=== PATIENT | female | born 1945 | race Caucasian/White ===

== ENCOUNTER 2017-03-23 03:29 | Emergency (ER) | payer MEDICARE, MEDICAID ==
[2017-03-23 03:51] VITALS: BP 100/34; PULSE 86; RESP 24; TEMP 99.5; O2SAT 100; BMI 25.1
[2017-03-23] MEDS ORDERED: Albuterol-Ipratrop 3 mg / 0.5 (3 ml) UD IH STA (03:51)
--- NOTE | 2017-03-23 03:59 | ED PDOC ---
Arrival/HPI - General Chief Complaint: Cough, Cold, Congestion Time Seen by Provider: 03/23/17 03:36 Historian: Patient - History of Present Illness Narrative History of Present Illness (Text): 03/23/17 03:56 Raysa Belle is a 71 year old female, with a history of hypertension and recently diagnosed bronchitis, presents to emergency department complaining of 1 week duration of shortness of breath, cough and wheezing. Patient states that symptoms did not improve despite taking medication prescribed to her during previous visit for similar symptoms. Deneis fever, chills, headache, dizziness, chest pain, nausea, vomiting, diarrhea, or any other complaints at this time. Time/Duration: 1 week Symptom Onset: Gradual Symptom Course: Unchanged Severity Level: Mild Activities at Onset: Light Context: Home Past Medical History - Infectious Disease Hx of Infectious Diseases: None - Tetanus Immunization Tetanus Immunization: Unknown - Cardiac Hx Pacemaker: No - Pulmonary Hx Asthma: Yes - Neurological Hx Paralysis: No - HEENT Hx Difficulty Chewing: No - Renal Hx Renal Disorder: No - Endocrine/Metabolic Hx Diabetes Mellitus Type 2: Yes Other/Comment: BORDERLINE DM - Hematological/Oncological Hx Blood Transfusions: No Hx Blood Transfusion Reaction: No - Integumentary Hx Dermatological Disorder: No - Musculoskeletal/Rheumatological Hx Musculoskeletal Disorders: Yes (OSTEOARTHRITIS) - Gastrointestinal Hx Diverticulitis: Yes - Genitourinary/Gynecological Hx Genitourinary Disorders: No - Psychiatric Hx Emotional Abuse: No Hx Physical Abuse: No Hx Substance Use: No - Past Surgical History Past Surgical History: Non-Contributing - Surgical History Hx Amputation: No Hx Appendectomy: Yes Hx Cholecystectomy: Yes Hx Hysterectomy: Yes Other/Comment: right hand surgery - Anesthesia Hx Anesthesia Reactions: No Hx Malignant Hyperthermia: No - Suicidal Assessment Feels Threatened In Home Enviroment: No Family/Social History - Physician Review Nursing Documentation Reviewed: Yes Family/Social History: No Known Family HX Smoking Status: Never Smoked Hx Alcohol Use: No Hx Substance Use: No Allergies/Home Meds Allergies/Adverse Reactions: Allergies alendronate sodium [From Fosamax] Allergy (Intermediate, Verified 06/05/16 11:21 ) NAUSEA/VOMTING ciprofloxacin Allergy (Intermediate, Verified 06/05/16 11:21) NAUSEA/VOMITING codeine Allergy (Intermediate, Verified 06/05/16 11:21) DIZZINESS lisinopril Allergy (Unknown, Verified 06/05/16 11:21) UNKNOWN Home Medications: Home Meds Medication Instructions Recorded Confirmed Atorvastatin Calcium [Lipitor] 40 mg PO QPM 03/28/12 01/25/17 Montelukast [Singulair] 10 mg PO QPM 03/28/12 01/25/17 Donepezil [Aricept] 5 mg PO DAILY 09/14/15 01/25/17 Calcium Carb & Citrate/Vit D3 1 each PO DAILY 06/05/16 01/25/17 [Calcium + D3 ER Tablet] Dexlansoprazole [Dexilant] 60 mg PO DAILY 06/05/16 01/25/17 Aspirin [Aspirin Chewable] 81 mg PO MWF 01/18/17 01/25/17 Atenolol [Tenormin] 25 mg PO DAILY 01/18/17 01/25/17 Polyethylene Glycol 3350 [Miralax] 17 gm PO DAILY 01/18/17 01/25/17 amLODIPine [Norvasc] 5 mg PO DAILY 01/18/17 01/25/17 Review of Systems - Physician Review All systems were reviewed & negative as marked: Yes - Review of Systems Constitutional: Normal. absent: Fatigue, Fevers Respiratory: SOB. absent: Sputum Cardiovascular: Normal. absent: Chest Pain Gastrointestinal: Normal. absent: Abdominal Pain, Diarrhea, Nausea, Vomiting Psychiatric: Normal Physical Exam Vital Signs Reviewed: Yes Vital Signs Temp Pulse Resp BP Pulse Ox 03/23/17 03:49 24 100 03/23/17 03:48 99.5 F 86 24 100/34 L 100 Temperature: Afebrile Blood Pressure: Normal Pulse: Regular Respiratory Rate: Normal Appearance: Positive for: Well-Appearing, Non-Toxic, Comfortable Pain Distress: None Mental Status: Positive for: Alert and Oriented X 3 - Systems Exam Head: Present: Atraumatic, Normocephalic Pupils: Present: PERRL Extroacular Muscles: Present: EOMI Conjunctiva: Present: Normal Mouth: Present: Moist Mucous Membranes Neck: Present: Normal Range of Motion Respiratory/Chest: Present: Wheezes (diffuse wheezing). No: Respiratory Distress, Accessory Muscle Use Cardiovascular: Present: Regular Rate and Rhythm, Normal S1, S2. No: Murmurs Abdomen: Present: Normal Bowel Sounds. No: Tenderness, Distention, Peritoneal Signs Back: Present: Normal Inspection Upper Extremity: Present: Normal Inspection. No: Cyanosis, Edema Lower Extremity: Present: Normal Inspection. No: Edema Neurological: Present: GCS=15, CN II-XII Intact, Speech Normal Skin: Present: Warm, Dry, Normal Color. No: Rashes Psychiatric: Present: Alert, Oriented x 3, Normal Insight, Normal Concentration Medical Decision Making ED Course and Treatment: 03/23/17 04:00 Impression: A 71 year old female who presents to the emergency department complaining of 1 wk duration of shortness of breath, cough and wheezing. Differential Diagnosis include but are not limited to: bronchitis Plan: -- EKG -- Labs, cardiac enzymes -- Chest X-ray -- Duoneb -- Rapid flu -- Reassess and disposition Progress Notes 03/23/17 04:01 - Lab Interpretations Lab Results: 03/23/17 03:55 03/23/17 03:55 Lab Results 03/23/17 03:55: NT-Pro-B Natriuret Pep 482 H 03/23/17 03:55: WBC 6.9, RBC 4.57, Hgb 12.9, Hct 37.9, MCV 82.9, MCH 28.2, MCHC 34.0, RDW 14.5, Plt Count 163, MPV 10.7 03/23/17 03:55: Sodium 140, Potassium 3.8, Chloride 104, Carbon Dioxide 24, Anion Gap 16, BUN 21, Creatinine 0.8, Est GFR ( Amer) > 60, Est GFR (Non- Af Amer) > 60, Random Glucose 101, Calcium 8.8, Total Bilirubin 0.7, AST 32, ALT 33, Alkaline Phosphatase 72, Lactate Dehydrogenase 709 H, Total Creatine Kinase 115, Troponin I < 0.01, Total Protein 7.1, Albumin 4.0, Globulin 3.1, Albumin/Globulin Ratio 1.3 03/23/17 03:55: PT 10.2, INR 0.94, APTT 26.6 - RAD Interpretation Radiology Orders: 03/23/17 03:50 CHEST PORTABLE [RAD] Stat - Medication Orders Current Medication Orders: Discontinued Medications Albuterol/Ipratropium (Duoneb 3 Mg/0.5 Mg (3 Ml) Ud) 3 ml IH ONCE STA Stop: 03/23/17 03:52 Last Admin: 03/23/17 03:52 Dose: 3 ml - Scribe Statement The provider has reviewed the documentation as recorded by the Vidhyaibe Fam Stone Provider Attestation: All medical record entries made by the Vidhyaibe were at my direction and personally dictated by me. I have reviewed the chart and agree that the record accurately reflects my personal performance of the history, physical exam, medical decision making, and the department course for this patient. I have also personally directed, reviewed, and agree with the discharge instructions and disposition. Disposition/Present on Arrival - Present on Arrival Any Indicators Present on Arrival: No History of DVT/PE: No History of Uncontrolled Diabetes: No Urinary Catheter: No History of Decub. Ulcer: No History Surgical Site Infection Following: None - Disposition Have Diagnosis and Disposition been Completed?: Yes Diagnosis: Bronchitis Disposition: HOME/ ROUTINE Disposition Time: 07:00 Patient Plan: Discharge Condition: STABLE Additional Instructions: Pt. with paper d/c given prior to [employer] system re boot.RX for Zithromax/Benadryl given/follow up with PMD.
[2017-03-23 06:22] LABS: ALB/GLOB RATIO 1.3 (1.1-1.8); ALKALINE PHOSPHATASE 72 U/L (38-133); ALT/SGPT 33 U/L (7-56); AST/SGOT 32 U/L (15-39); BILIRUBIN,TOTAL 0.7 mg/dL (0.2-1.3); BLOOD UREA NITROGEN 21 mg/dL (7-21); CALCIUM 8.8 mg/dL (8.4-10.5); CARBON DIOXIDE 24 mmol/L (21-33); CHLORIDE 104 mmol/L (98-107); GFR AFRICAN-AMERICAN > 60; GLUCOSE,RANDOM 101 mg/dL (70-110); POTASSIUM 3.8 mmol/L (3.6-5.0); SODIUM 140 mmol/L (132-148); TOTAL PROTEIN 7.1 g/dL (5.8-8.3)
[2017-03-23 06:26] LABS: INR 0.94 (0.93-1.08); PARTIAL THROMBOPLASTIN TIME 26.6 Seconds (23.7-30.8)
[2017-03-23 06:52] LABS: TROPONIN I < 0.01 ng/mL
[2017-03-23 07:38] LABS: HEMATOCRIT 37.9 % (36.0-48.0); MEAN CELL VOLUME 82.9 fL (80.0-105.0); MEAN CORPUSCULAR HEMOGLOBIN 28.2 pg (25.0-35.0); MEAN PLATELET VOLUME 10.7 fl (7.0-11.0); RED CELL DISTRIBUTION WIDTH 14.5 % (11.5-14.5); WHITE BLOOD COUNT 6.9 10^3/ul (4.5-11.0)
--- NOTE | 2017-03-23 11:16 | CARD ---
APPROVED REPORT EKG Measurement Heart [id number] <Conclusion> Normal sinus rhythm Low voltage QRS Borderline ECG
--- NOTE | 2017-03-31 23:41 | RAD ---
HISTORY: Shortness of breath COMPARISON: 06/30/2016 FINDINGS: LUNGS: No active pulmonary disease. PLEURA: No significant pleural effusion identified, no pneumothorax apparent. CARDIOVASCULAR: Normal. OSSEOUS STRUCTURES: No significant abnormalities. VISUALIZED UPPER ABDOMEN: Normal. OTHER FINDINGS: None. IMPRESSION: No active disease.
== END 2017-03-23 08:16 | disposition home or self-care (01) ==
LOC: ED 03:29
DX: J40 Bronchitis, not specified as acute or chronic (principal)

== ENCOUNTER 2017-08-03 07:25 | Observation (INO) | payer OTHER, MEDICAID ==
[2017-08-03] MEDS ORDERED: Albuterol-Ipratrop 3 mg / 0.5 (3 ml) UD IH STA (08:25)
[2017-08-03] MEDS ORDERED: Sodium Chloride 0.9% 1,000 ML IV SCH (08:30)
--- NOTE | 2017-08-03 08:32 | ED PDOC ---
Arrival/HPI - General Historian: Patient EM Caveat: Acuity of Condition - History of Present Illness Time/Duration: < week Symptom Onset: Gradual Symptom Course: Unchanged Activities at Onset: Rest Context: Sitting <ROYAL DAWN - Last Filed: 08/03/17 13:44> <Justo Villagomez - Last Filed: 08/03/17 15:40> - General Chief Complaint: GI Problem Time Seen by Provider: 08/03/17 07:27 - History of Present Illness Narrative History of Present Illness (Text): Patient is a 71 year old female with a past medical history of asthma, HTN, dyslipidemia, Lymphoma who presents with complaints of vomiting, nausea, nasal congestion, itchy eyes, and shortness of breath. Patient states that for the past week she went to visit her son and grandchildren. Patient states grandchildren were sick with vomiting and diarrhea. After visiting them, her symptoms started Wednesday08/30/17; stating she has had five episodes of vomiting since, however none today. Patient denies diarrhea, chest pain, fevers , chills. While in ED patient later complains of a shortness of breath since she stopped taking her medications. 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 Medications: atorvastatin 40 mg, montelukast 10 mg, atenolol 25 mg, amilodipine 25 mg, donepezil 5mg; all medications qD. Aspirin-MWF 1 tab. 08/03/17 08:27 (ROYAL DAWN) Past Medical History - Provider Review Nursing Documentation Reviewed: Yes - Infectious Disease Hx of Infectious Diseases: None - Tetanus Immunization Tetanus Immunization: Unknown - Cardiac Hx Cardiac Disorders: Yes Hx Hypertension: Yes Hx Pacemaker: No - Pulmonary Hx Respiratory Disorders: Yes Hx Asthma: Yes - Neurological Hx Neurological Disorder: No Hx Paralysis: No - HEENT Hx HEENT Disorder: No Hx Difficulty Chewing: No - Renal Hx Renal Disorder: No - Endocrine/Metabolic Hx Endocrine Disorders: Yes Hx Diabetes Mellitus Type 2: Yes Other/Comment: BORDERLINE DM - Hematological/Oncological Hx Blood Disorders: Yes Hx Blood Transfusions: No Hx Blood Transfusion Reaction: No Hx Cancer: Yes Hx Lymphoma: Yes - Integumentary Hx Dermatological Disorder: No - Musculoskeletal/Rheumatological Hx Musculoskeletal Disorders: Yes (OSTEOARTHRITIS) - Gastrointestinal Hx Gastrointestinal Disorders: Yes Hx Diverticulitis: Yes - Genitourinary/Gynecological Hx Genitourinary Disorders: No - Psychiatric Hx Psychophysiologic Disorder: No Hx Emotional Abuse: No Hx Physical Abuse: No Hx Substance Use: No - Past Surgical History Past Surgical History: Non-Contributing - Surgical History Hx Amputation: No Hx Appendectomy: Yes Hx Cataract Extraction: Yes Hx Cholecystectomy: Yes Hx Hysterectomy: Yes Other/Comment: right hand surgery - Anesthesia Hx Anesthesia Reactions: No Hx Malignant Hyperthermia: No - Suicidal Assessment Feels Threatened In Home Enviroment: No <ROYAL DAWN - Last Filed: 08/03/17 13:44> Family/Social History - Physician Review Nursing Documentation Reviewed: Yes Family/Social History: Other Smoking Status: Never Smoked Hx Alcohol Use: No Hx Substance Use: No <ROYAL DAWN - Last Filed: 08/03/17 13:44> <Justo Villagomez - Last Filed: 08/03/17 15:40> Narrative Family History (Free Text): non contributory for chronic disease Acute disease- grandchildren had similar presentation beforehand 08/03/17 08:33 (ROYAL DAWN) Allergies/Home Meds <ROYAL DAWN - Last Filed: 08/03/17 13:44> <Justo Villagomez - Last Filed: 08/03/17 15:40> Allergies/Adverse Reactions: Allergies alendronate sodium [From Fosamax] Allergy (Intermediate, Verified 08/03/17 07:48 ) NAUSEA/VOMTING ciprofloxacin Allergy (Intermediate, Verified 08/03/17 07:48) NAUSEA/VOMITING codeine Allergy (Intermediate, Verified 08/03/17 07:48) DIZZINESS lisinopril Allergy (Unknown, Verified 08/03/17 07:48) UNKNOWN clarithromycin Allergy (Verified 08/03/17 07:48) unknown sertraline Allergy (Verified 08/03/17 07:48) unknown Home Medications: Home Meds Medication Instructions Recorded Confirmed Atorvastatin Calcium [Lipitor] 40 mg PO QPM 03/28/12 08/03/17 Montelukast [Singulair] 10 mg PO QPM 03/28/12 08/03/17 Donepezil [Aricept] 5 mg PO DAILY 09/14/15 08/03/17 Calcium Carb, Citrate/Vit D3 1 each PO DAILY 06/05/16 08/03/17 [Calcium + D3 ER Tablet] Aspirin [Aspirin Chewable] 81 mg PO MWF 01/18/17 08/03/17 Atenolol [Tenormin] 25 mg PO DAILY 01/18/17 08/03/17 Polyethylene Glycol 3350 [Miralax] 17 gm PO BID 01/18/17 08/03/17 amLODIPine [Norvasc] 5 mg PO DAILY 01/18/17 08/03/17 Albuterol HFA [Ventolin HFA 90 1 inh INH BID PRN 08/03/17 08/03/17 mcg/actuation (8 g)] Budesonide/Formoterol Fumarate 1 inh INH BID 08/03/17 08/03/17 [Symbicort 80-4.5 Mcg Inhaler] Fluticasone Propionate [Flonase] 1 spray IN BID 08/03/17 08/03/17 Lactobacillus Acidophilus 1 tab PO DAILY 08/03/17 08/03/17 [Probiotic Acidophilus] Review of Systems - Physician Review All systems were reviewed & negative as marked: Yes - Review of Systems Systems not reviewed;Unavailable: Acuity of Condition Constitutional: absent: Fevers, Night Sweats Eyes: Other (itchiness around eyes, right eye in particular). absent: Vision Changes, Photophobia Respiratory: SOB, Cough Cardiovascular: absent: Chest Pain, Palpitations Gastrointestinal: Nausea, Vomiting, Appetite Changes. absent: Diarrhea Musculoskeletal: absent: Arthralgias, Joint Swelling Skin: absent: Skin Lesions, Laceration Neurological: Headache. absent: Focal Weakness <ROYAL DAWN - Last Filed: 08/03/17 13:44> Physical Exam Vital Signs Reviewed: Yes Temperature: Afebrile Blood Pressure: Hypertensive Pulse: Regular Appearance: Positive for: Uncomfortable Pain Distress: Mild Mental Status: Positive for: Alert and Oriented X 3 - Systems Exam Head: Present: Atraumatic, Normocephalic Extroacular Muscles: Present: EOMI Conjunctiva: Present: Normal Mouth: Present: Moist Mucous Membranes, Normal Lips Respiratory/Chest: Present: Clear to Auscultation, Respiratory Distress Cardiovascular: Present: Regular Rate and Rhythm, Normal S1, S2 Abdomen: Present: Tenderness, Normal Bowel Sounds. No: Distention, Peritoneal Signs, Rebound, Guarding Neurological: Present: CN II-XII Intact Skin: Present: Warm, Normal Color Psychiatric: Present: Alert, Oriented x 3 <ROYAL DAWN - Last Filed: 08/03/17 13:44> Medical Decision Making <ROYAL DAWN - Last Filed: 08/03/17 13:44> - EKG Interpretation Interpreted by ED Physician: Yes Type: 12 lead EKG <DahliaJusto - Last Filed: 08/03/17 15:40> ED Course and Treatment: Assessment Patient is a 71 year old female with complaints of cough, vomiting, shortness of breath, swollen and pruritic eyes B/L, and nasal congestion Plan - EKG - CXR - UA - CBC, CMP - Duoneb - Zofran - IVF - CT reveals sinusitus; tobramycin sln and rocephin - BNP elevated; will admit to telemetry for further observation- Discussed with Dr. Wills, who is in agreement with the plan 08/03/17 08:37 (ROYAL DAWN) In agreement with resident note, which includes further HPI details. Patient was seen and evaluated with resident, came up with plan and treatment together. Patient examined by me with director of food and nutrition services present. She reports to me some abdominal cramping and nausea several days ago which improved. On current exam she appears well hydrated and is tolerating po, with no severe abdominal pain noted on exam. She has periorbital right eye erythema with clear conjunctival dishcharge. Exam and CT does NOT reveal orbital cellulitis, no pain with eye movements, and visual acuity and gray intact. She additionally complains of chest pain and shortness of breath with exertion over the past three days. I discussed with Dr. Earnest Wills, her PMD, no recent cardiac eval. Will admit to telemetry observation to hospitalist for monitoring, patient agreeable to plan. 08/03/17 15:37 (Justo Villagomez) - Lab Interpretations Lab Results: 08/03/17 08:30 08/03/17 08:30 Lab Results 08/03/17 08:30: Sodium 142, Potassium 3.3 L, Chloride 105, Carbon Dioxide 25, Anion Gap 15, BUN 10, Creatinine 0.7, Est GFR ( Amer) > 60, Est GFR (Non- Af Amer) > 60, Random Glucose 101, Calcium 8.6, Total Bilirubin 0.9, AST 30, ALT 26, Alkaline Phosphatase 71, Lactate Dehydrogenase 594, Total Creatine Kinase 108, Troponin I 0.02 D, NT-Pro-B Natriuret Pep 1270 H, Total Protein 6.0 , Albumin 3.9, Globulin 2.1, Albumin/Globulin Ratio 1.9 H 08/03/17 08:30: WBC 6.8, RBC 4.36, Hgb 12.4, Hct 36.3, MCV 83.3, MCH 28.4, MCHC 34.2, RDW 13.2, Plt Count 199, MPV 10.2, Gran % 53.4, Lymph % (Auto) 29.5, [place] % (Auto) 14.1 H, Eos % (Auto) 2.7, Baso % (Auto) 0.3, Gran # 3.61, Lymph # 2.0, [place] # 1.0 H, Eos # 0.2, Baso # 0.02 - RAD Interpretation Radiology Orders: 08/03/17 08:20 CHEST PORTABLE [RAD] Stat 08/03/17 09:53 ORBITS/ FACIALS W/O CONTRAST [CT] Stat - EKG Interpretation EKG Interpretation (Text): EKG at 0845 normal sinus rhythm with marked sinus arrhythmia, no acute st elevations (Justo Villagomez) - Medication Orders Current Medication Orders: Albuterol/Ipratropium (Duoneb 3 Mg/0.5 Mg (3 Ml) Ud) 3 ml IH Q2H PRN PRN Reason: Shortness of Breath Stop: 08/03/17 18:01 Albuterol/Ipratropium (Duoneb 3 Mg/0.5 Mg (3 Ml) Ud) 3 ml IH [id number] [facility] Amlodipine Besylate (Norvasc) 5 mg PO DAILY [facility] Amoxicillin/Clavulanate Potassium (Augmentin 875 Mg-125 Mg Tab) 1 tab PO Q12 [facility] PRN Reason: Protocol Aspirin (Aspirin Chewable) 81 mg PO MWF [facility] Atenolol (Tenormin) 25 mg PO DAILY [facility] Atorvastatin Calcium (Lipitor) 40 mg PO QPM [facility] Benzonatate (Tessalon Perles) 100 mg PO TID [facility] Donepezil HCl (Aricept) 5 mg PO DAILY [facility] Famotidine (Pepcid) 20 mg PO 1000,2200 [facility] Fluticasone Propionate (Flonase) 0 actuation NS BID [facility] Heparin Sodium (Porcine) (Heparin) 5,000 units SC Q12 [facility] PRN Reason: Protocol Sodium Chloride (Sodium Chloride 0.9%) 1,000 mls @ 75 mls/hr IV .[id number] [facility] Methylprednisolone (Solu-Medrol) 20 mg IVP Q12 [facility] Montelukast Sodium (Singulair) 10 mg PO QPM [facility] Non-Formulary Medication (Calcium Carb, Citrate/Vit D3 [Calcium + D3 Er Tablet] ) 1 each PO DAILY [facility] Ondansetron HCl (Zofran Inj) 4 mg IVP Q4H PRN PRN Reason: nausea Polyethylene Glycol (Miralax) 17 gm PO BID [facility] Sodium Chloride ([place] Nasal Powder[place]) 0 ml NS DAILY PRN PRN Reason: Nasal congestion Discontinued Medications Albuterol/Ipratropium (Duoneb 3 Mg/0.5 Mg (3 Ml) Ud) 3 ml IH STAT STA Stop: 08/03/17 08:26 Last Admin: 08/03/17 08:50 Dose: 3 ml Sodium Chloride (Sodium Chloride 0.9%) 1,000 mls @ 100 mls/hr IV .Q10H [facility] Last Admin: 08/03/17 08:50 Dose: 100 mls/hr Ceftriaxone Sodium (Rocephin 1 Gram Ivpb) 1 gm in 100 mls @ 200 mls/hr IVPB STAT [facility] PRN Reason: Protocol Stop: 08/03/17 12:55 Last Admin: 08/03/17 12:51 Dose: 200 mls/hr Ondansetron HCl (Zofran Inj) 8 mg IVP STAT STA Stop: 08/03/17 08:24 Last Admin: 08/03/17 08:51 Dose: 8 mg Potassium Chloride (K-Dur 20 Meq Er Tab) 40 meq PO STAT STA Stop: 08/03/17 09:25 Last Admin: 08/03/17 10:06 Dose: 40 meq Potassium Chloride (K-Dur 20 Meq Er Tab) 40 meq PO ONCE ONE Stop: 08/03/17 14:05 Tobramycin Sulfate (Tobrex 0.3% Oph Soln) 2 drop OD STAT STA Stop: 08/03/17 12:26 Last Admin: 08/03/17 12:50 Dose: 2 drop Disposition/Present on Arrival - Present on Arrival Any Indicators Present on Arrival: No History of DVT/PE: No History of Uncontrolled Diabetes: No Urinary Catheter: No History of Decub. Ulcer: No History Surgical Site Infection Following: None - Disposition Have Diagnosis and Disposition been Completed?: Yes Disposition Time: 14:05 Patient Plan: Admission <ROYAL DAWN - Last Filed: 08/03/17 13:44> <Justo Villagomez - Last Filed: 08/03/17 15:40> - Disposition Diagnosis: Acute sinusitis, Chest pain, Conjunctivitis, Periorbital cellulitis, Elevated brain natriuretic peptide (BNP) level Disposition: HOSPITALIZED Patient Problems: Current Active Problems Problem Status Onset Acute sinusitis Acute Condition: FAIR
--- NOTE | 2017-08-03 09:05 | RAD ---
HISTORY: shortness of breath COMPARISON: 03/23/2017 FINDINGS: LUNGS: No active pulmonary disease. PLEURA: No significant pleural effusion identified, no pneumothorax apparent. CARDIOVASCULAR: Normal. OSSEOUS STRUCTURES: No significant abnormalities. VISUALIZED UPPER ABDOMEN: Normal. OTHER FINDINGS: None. IMPRESSION: No active disease.
[2017-08-03 09:17] LABS: ALB/GLOB RATIO 1.9 (1.1-1.8); ALKALINE PHOSPHATASE 71 U/L (38-126); ALT/SGPT 26 U/L (7-56); AST/SGOT 30 U/L (14-36); BILIRUBIN,TOTAL 0.9 mg/dL (0.2-1.3); BLOOD UREA NITROGEN 10 mg/dL (7-21); CALCIUM 8.6 mg/dL (8.4-10.5); CARBON DIOXIDE 25 mmol/L (21-33); CHLORIDE 105 mmol/L (98-107); GFR AFRICAN-AMERICAN > 60; GLUCOSE,RANDOM 101 mg/dL (70-110); POTASSIUM 3.3 mmol/L (3.6-5.0); SODIUM 142 mmol/L (132-148)
[2017-08-03] MEDS ORDERED: Potassium Chloride 20 mEq ER Tab PO STA (09:24)
[2017-08-03 09:29] LABS: TROPONIN I 0.02 ng/mL
[2017-08-03 09:30] LABS: BASO # 0.02 K/mm3 (0.0-2.0); BASO % 0.3 % (0.0-3.0); EOS # 0.2 (0.0-0.7); EOS % 2.7 % (1.5-5.0); GRAN # 3.61 (1.4-6.5); GRAN % 53.4 % (50.0-68.0); HEMATOCRIT 36.3 % (36.0-48.0); LYMPH % 29.5 % (22.0-35.0); MEAN CELL VOLUME 83.3 fl (80.0-105.0); MEAN CORPUSCULAR HEMOGLOBIN 28.4 pg (25.0-35.0); MEAN CORPUSCULAR HGB CONC 34.2 g/dl (31.0-37.0); MEAN PLATELET VOLUME 10.2 fl (7.0-11.0); MONO % 14.1 % (1.0-6.0); RED CELL DISTRIBUTION WIDTH 13.2 % (11.5-14.5); WHITE BLOOD COUNT 6.8 10^3/ul (4.5-11.0)
--- NOTE | 2017-08-03 11:26 | CT ---
PROCEDURE: CT ORBITS WITHOUT CONTRAST. HISTORY: right orbital pain/cellulitis COMPARISON: None available. TECHNIQUE: Axial CT images of the orbits were obtained. Coronal and sagittal reformats were generated. Radiation dose: Total exam DLP = 730 mGy-cm. This CT exam was performed using one or more of the following dose reduction techniques: Automated exposure control, adjustment of the mA and/or kV according to patient size, and/or use of iterative reconstruction technique. FINDINGS: RIGHT ORBIT: RIGHT BONY ORBIT: Normal. RIGHT INTRAORBITAL STRUCTURES: Globe: Normal. Extraocular muscles: Normal. Post septal space: Normal. Optic Nerve: Normal. Lacrimal Apparatus: Normal. RIGHT PRESEPTAL SOFT TISSUES: Normal. LEFT ORBIT: LEFT BONY ORBIT: Normal. LEFT INTRAORBITAL STRUCTURES: Globe: Normal. Extraocular muscles: Normal. Post septal space: Normal Optic Nerve: Normal. . Lacrimal Apparatus: Normal. LEFT PRESEPTAL SOFT TISSUES: Normal. OTHER: There is nearly complete opacification of the right maxillary sinus and the ethmoid air cells right greater than left. There is also partial opacification of the nasal cavity. IMPRESSION: Sinusitis. No evidence of orbital cellulitis.
[2017-08-03] MEDS ORDERED: Tobramycin 0.3% OPHT SOLN OD STA (12:25)
[2017-08-03] MEDS ORDERED: cefTRIAXone 1 gm 1 GM/100 ML BAG IVPB STA (12:26)
[2017-08-03] MEDS ORDERED: Albuterol-Ipratrop 3 mg / 0.5 (3 ml) UD IH PRN (13:56)
[2017-08-03] MEDS ORDERED: Potassium Chloride 20 mEq ER Tab PO ONE (14:04)
--- NOTE | 2017-08-03 14:36 | CP.PCM.HP ---
<LESVIA TIMMONS - Last Filed: 08/03/17 18:32> History of Present Illness - History of Present Illness History of Present Illness: Lesvia Timmons DO PGY1 - Internal Medicine H&P CC: Vomiting HPI: 71 yo F with significant PMH initially presented for vomiting, also complaining of cough, nasal congestion, nausea, itchy eyes, and SOB. All these symptoms started 3 days ago, after she visited her grandchildren who were all sick with vomiting and diarrhea. She also admits to mild non-radiating CP associated with the cough, and with deep inspiration, inconsistently worsened with activity, not associated with diaphoresis. This CP started 2 days ago, after coughing and vomiting for a day. She also admits to not having taken any of her medications for the past three days. She has had this pain in the past, associated with URI symptoms. Of note, patient has an past cardiac history, though she does not remember the details. She last had an echo in [address] Meza, whom she has not seen in over a year. She also has a history of lymphoma, s/p chemo with Dr. Fischer, which is now resolved, she does not recall the last time she had chemo. Her history is also notable for asthma and environmental allergies. PMH: Lymphoma, HTN, HLD, asthma, C diff PSH: Lipoma excision, hysterectomy for fibroid Meds: atorvastatin 40 mg, montelukast 10 mg, atenolol 25 mg, amilodipine 25 mg, donepezil 5mg, symbicort PRN, albuterol PRN, flonase; all medications qD. Aspirin-MWF 1 tab. Soc: Denies Tob, EtOH, Illicits, multiple sick contacts FHx: HLD in mother ALL: Codeine, lisinopril (vomiting), ciprofloxacin, Fosamax, sertraline, clarithroycin ROS: Constitutional: pt denies fever, chills, generalized weakness ENT: +Rhinorrhea, nasal congestion, R facial pressure, R eye pruritis pt denies dysphagia, otalgia, hearing deficit Eyes: pt denies sudden loss of vision, diplopia, blurred vision MSK: pt denies muscle stiffness, joint pain, extremity cramping Cardio: +CP, SOB pt denies heart murmur, palpitation, diaphoresis Pulm: +Cough, wheeze pt denies hemoptysis GI: +Nausea, vomiting pt denies loss of appetite, abdominal pain, constipation, melena, diarrhea : pt denies burning on urination, urinary frequency, hematuria, urinary urgency Neuro: pt denies paresis, paresthesia, dizziness, lugo, numbness, tingling Derm: pt denies skin changes, lesions, nail changes Endo: pt denies intolerance to heat/cold, diaphoresis, night sweats, polydipsia Psych: pt denies anxiety, depression, mood changes Present on Admission - Present on Admission Any Indicators Present on Admission: No Past Patient History - Infectious Disease Hx of Infectious Diseases: None - Tetanus Immunizations Tetanus Immunization: Unknown - Past Social History Smoking Status: Never Smoked - CARDIAC Hx Cardiac Disorders: Yes Hx Hypertension: Yes Hx Pacemaker: No - PULMONARY Hx Respiratory Disorders: Yes Hx Asthma: Yes - NEUROLOGICAL Hx Neurological Disorder: No Hx Paralysis: No - HEENT Hx HEENT Problems: No Hx Difficulty Chewing: No - RENAL Hx Chronic Kidney Disease: No - ENDOCRINE/METABOLIC Hx Endocrine Disorders: Yes Hx Diabetes Mellitus Type 2: Yes Other/Comment: BORDERLINE DM - HEMATOLOGICAL/ONCOLOGICAL Hx Blood Disorders: Yes Hx Blood Transfusions: No Hx Blood Transfusion Reaction: No Hx Cancer: Yes - INTEGUMENTARY Hx Dermatological Problems: No - MUSCULOSKELETAL/RHEUMATOLOGICAL Hx Musculoskeletal Disorders: Yes (OSTEOARTHRITIS) - GASTROINTESTINAL Hx Gastrointestinal Disorders: Yes Hx Diverticulitis: Yes - GENITOURINARY/GYNECOLOGICAL Hx Genitourinary Disorders: No - PSYCHIATRIC Hx Psychophysiologic Disorder: No Hx Emotional Abuse: No Hx Physical Abuse: No Hx Substance Use: No - SURGICAL HISTORY Hx Amputation: No Hx Appendectomy: Yes Hx Cataract Extraction: Yes Hx Cholecystectomy: Yes Hx Hysterectomy: Yes Other/Comment: right hand surgery - ANESTHESIA Hx Anesthesia Reactions: No Hx Malignant Hyperthermia: No Meds Allergies/Adverse Reactions: Allergies Allergy/AdvReac Type Severity Reaction Status Date / Time alendronate sodium Allergy Intermediate NAUSEA/VOMT Verified 08/03/17 07:48 [From Fosamax] ING ciprofloxacin Allergy Intermediate NAUSEA/VOMI Verified 08/03/17 07:48 TING codeine Allergy Intermediate DIZZINESS Verified 08/03/17 07:48 lisinopril Allergy Unknown UNKNOWN Verified 08/03/17 07:48 clarithromycin Allergy unknown Verified 08/03/17 07:48 sertraline Allergy unknown Verified 08/03/17 07:48 Physical Exam - Constitutional Appears: Non-toxic, No Acute Distress - Head Exam Head Exam: ATRAUMATIC, NORMOCEPHALIC - Eye Exam Eye Exam: EOMI, Periorbital tenderness, PERRL. absent: Periorbital swelling Additional comments: Right periorbital erythema, without edema, mild superior palpebral tenderness. No conjunctival edema, erythema, or injection. No purulent drainage. - ENT Exam ENT Exam: Mucous Membranes Moist Additional comments: b/l nasal congestion, R>L with mucosal erythema and edema, R>L - Neck Exam Neck exam: Negative for: Lymphadenopathy, Tenderness, Thyromegaly - Respiratory Exam Respiratory Exam: Clear to Auscultation Bilateral, NORMAL BREATHING PATTERN. absent: Accessory Muscle Use, Rales, Rhonchi, Wheezes, Respiratory Distress Additional comments: Tender anterior chest wall - Cardiovascular Exam Cardiovascular Exam: RRR, +S1, +S2 - GI/Abdominal Exam GI & Abdominal Exam: Normal Bowel Sounds, Soft. absent: Tenderness - Extremities Exam Extremities exam: Positive for: normal inspection Additional comments: Amputated right 5th digit Trace pitting edema b/l LE to knees - Neurological Exam Neurological exam: Alert, Oriented x3 - Psychiatric Exam Psychiatric exam: Normal Affect, Normal Mood - Skin Skin Exam: Dry, Intact Results - Vital Signs Recent Vital Signs: Last Vital Signs Temp 98.5 F 08/03/17 07:46 Pulse 94 H 08/03/17 07:46 Resp 16 08/03/17 07:46 BP 158/65 H 08/03/17 07:46 Pulse Ox 94 L 08/03/17 07:46 - Labs Result Diagrams: 08/03/17 08:30 08/03/17 08:30 Assessment & Plan - Assessment and Plan (Free Text) Assessment: 71 yo F with PMH of Lymphoma, HTN, HLD, asthma, and C diff who presented with sinusitis with nausea, vomiting, and cough for the past 3 days, medication noncompliance, and subsequent chest pain with an elevated BNP. Admitted to [facility] for observation Plan: 1. Sinusitis with R preseptal cellulitis - Patient with nasal congestion, cough, n/v, multiple sick contacts prior to onset, and history of asthma and environmental allergies - CT sinus in the ER shows opacification of R maxillary sinus and R ethmoid sinus - Started Solumedrol 20mg Q12 - Started Augmentin 875/125 BID - Ibuprofen 600mg for pain - Zofran for nausea - Tessalon Perles for cough - Flonase BID - Saline Nasal spray PRN 2. CP 2/2 Asthma exacerbation vs musculoskeletal 2/2 cough vs CHF exacerbation vs ACS - Patient has reproducible chest pain with anterior chest wall point tenderness , but mildly elevated BNP on admitting labs - EKG in the ED shows NSR with marked sinus arrhythmia - Cardio (Derrick) consulted, appreciate recs - Echo ordered - Repeat EKG in AM - Trop negative x1, continue to trend - On ASA at home. 3. H/o Asthma - Lungs CTA b/l but patient actively coughing - CXR in ED shows no active disease - Started duonebs ROSEMARIE and PRN - Resume home Singulair 4. H/o HTN, HLD - Resume home meds GI/DVT PPx Patient seen, discussed, and reviewed with attending <Haim Donaldson - Last Filed: 08/03/17 19:01> Results - Vital Signs Recent Vital Signs: Last Vital Signs Temp 98.5 F 08/03/17 07:46 Pulse 108 H 08/03/17 16:55 Resp 19 08/03/17 16:55 BP 148/75 08/03/17 16:55 Pulse Ox 95 08/03/17 16:55 - Labs Result Diagrams: 08/03/17 08:30 08/03/17 08:30 Attending/Attestation - Attestation I have personally seen and examined this patient.: Yes I have fully participated in the care of the patient.: Yes I have reviewed all pertinent clinical information: Yes Notes (Text): 08/03/17 18:57 attending note; Patient seen and examined with resident in ER. Patient is a 71-yr-old female with a history of asthma, lymphoma is admitted with recent URI symptoms. Patient also complains of pleuritic chest pain. Admit to telemetry. cardiac enzymes ordered. Cardiology evaluation requested. Started on DuoNeb, IV steroids. sinusitis/periorbital swelling; continue IV Rocephin. upon discharge patient will follow-up with PMD .
[2017-08-03] MEDS: Albuterol-Ipratrop 3 mg / 0.5 (3 ml) UD IH SCH ×2 (16:18→19:17)
[2017-08-03] MEDS: Sodium Chloride 0.9% 1,000 ML IV SCH (16:19)
[2017-08-03] MEDS: MethylPREDNISolone 40 mg Vial IVP SCH ×2 (16:19→21:08)
[2017-08-03] MEDS: POLYETHYLENE GLYCOL 3350 17 GM/Dose PACKET PO SCH (18:09)
[2017-08-03 19:50] VITALS: BMI 18.6
[2017-08-03] MEDS ORDERED: Pneumococcal 23-Valent Vaccine IM ONE (19:50)
[2017-08-03] MEDS: Amoxicillin-Clav 875-125 mg Tab PO SCH (21:08)
[2017-08-03] MEDS: Fluticasone Nasal 50 mcg/Spray NS SCH (21:51)
--- NOTE | 2017-08-03 23:28 | CARD ---
APPROVED REPORT EKG Measurement Heart [id number] <Conclusion> Sinus rhythm with APCs Low voltage QRS Borderline ECG
[2017-08-04] MEDS: Albuterol-Ipratrop 3 mg / 0.5 (3 ml) UD IH SCH ×4 (01:10→19:33)
[2017-08-04 06:29] LABS: EOS % 0.2 % (1.5-5.0); GRAN # 3.54 (1.4-6.5); GRAN % 73.3 % (50.0-68.0); HEMATOCRIT 36.7 % (36.0-48.0); LYMPH # 1.2 (1.2-3.4); LYMPH % 25.1 % (22.0-35.0); MEAN CELL VOLUME 83.6 fl (80.0-105.0); MEAN CORPUSCULAR HEMOGLOBIN 28.2 pg (25.0-35.0); MEAN CORPUSCULAR HGB CONC 33.8 g/dl (31.0-37.0); MEAN PLATELET VOLUME 10.3 fl (7.0-11.0); MONO # 0.1 (0.1-0.6); MONO % 1.4 % (1.0-6.0); RED CELL DISTRIBUTION WIDTH 13.3 % (11.5-14.5); WHITE BLOOD COUNT 4.8 10^3/ul (4.5-11.0)
[2017-08-04 06:38] LABS: ALB/GLOB RATIO 1.6 (1.1-1.8); ALKALINE PHOSPHATASE 71 U/L (38-126); ALT/SGPT 33 U/L (7-56); AST/SGOT 26 U/L (14-36); BILIRUBIN,TOTAL 0.6 mg/dL (0.2-1.3); BLOOD UREA NITROGEN 15 mg/dL (7-21); CALCIUM 8.8 mg/dL (8.4-10.5); CARBON DIOXIDE 25 mmol/L (21-33); CHLORIDE 108 mmol/L (98-107); GFR AFRICAN-AMERICAN > 60; GLUCOSE,RANDOM 138 mg/dL (70-110); MAGNESIUM 1.8 mg/dL (1.7-2.2); PHOSPHOROUS 3.3 mg/dL (2.5-4.5); POTASSIUM 3.8 mmol/L (3.6-5.0); SODIUM 144 mmol/L (132-148); TOTAL PROTEIN 6.3 g/dL (5.8-8.3)
[2017-08-04 07:03] LABS: TROPONIN I < 0.01 ng/mL
[2017-08-04] MEDS ORDERED: Vancomycin 1gm in NS 250ml 1 GM/250 ML BAG IVPB STA (07:22)
[2017-08-04 08:24] LABS: MAGNESIUM 1.8 mg/dL (1.7-2.2); PHOSPHOROUS 3.3 mg/dL (2.5-4.5)
[2017-08-04] MEDS ORDERED: Potassium Chloride 20 mEq ER Tab PO ONE (09:23)
[2017-08-04] MEDS: Fluticasone Nasal 50 mcg/Spray NS SCH ×2 (10:00→18:33)
[2017-08-04] MEDS: POLYETHYLENE GLYCOL 3350 17 GM/Dose PACKET PO SCH ×2 (10:00→17:47)
[2017-08-04] MEDS ORDERED: Aminophylline 25 mg/ml Inj ONE (11:35)
--- NOTE | 2017-08-04 14:12 | CON ---
DATE: 08/04/2017 REASON FOR THE CONSULTATION: Cardiac evaluation for chest pain. BRIEF CLINICAL HISTORY: This is a 71-year-old female with past medical history significant for diverticular colon disease, lymphoma status post chemotherapy who came in with complaint of nausea, vomiting, cough, and chest pain. The patient states three episodes of chest pain, but mostly secondary to after having cough, left-sided, but since last 24 hours no further chest pain. Chest pain happened on Wednesday, Wednesday, and Wednesday. Also the patient has nausea, vomiting. The symptoms started three days ago and states that probably he got infection from the grandchildren who were sick and vomiting and diarrhea also. PAST MEDICAL HISTORY: Significant for lymphoma, hypertension, hyperlipidemia, asthma, CHF, and C. diff colitis. She used to follow up, but patient recently lost follow up. PREVIOUS CARDIAC WORKUP: As follows, the patient had a stress test on 04/20/2016 that was a Lexiscan and that shows a normal myocardial perfusion study, ejection fraction 61% dated 04/20/2016. The patient had echocardiography also on 10/31/2015 that shows the ejection fraction of 65%, [id number] aortic regurgitation, [id number] mitral regurgitation, trace mild tricuspid regurgitation, systolic pressure 39 dated 10/31/2015. SOCIAL HISTORY: Denies any history of alcohol abuse. PAST SURGICAL HISTORY: Significant for lymph node biopsy before the diagnosis of lymphoma, history of lipoma, and history of hysterectomy way back. ALLERGIES: ALLERGY TO CODEINE AND CIPROFLOXACIN. CURRENT MEDICATIONS: At home, amlodipine, Miralax, Singulair, calcium, Atorvastatin, atenolol, and aspirin. REVIEW OF SYSTEMS: As per HPI. PHYSICAL EXAMINATION VITAL SIGNS: Temperature afebrile, 108 heart rate, blood pressure 148/75. HEENT: PERRLA. Extraocular muscles intact. NECK: Supple. No carotid bruits. No thyromegaly. CHEST: Clear to auscultation. HEART: S1 and S2 and regular. ABDOMEN: Soft. EXTREMITIES: Clubbing, cyanosis negative. LABORATORY DATA: Blood workup shows WBC 4.8, hemoglobin 12.5, hematocrit 36.7, platelet count 209. Chemistries show sodium 140, potassium 3.0, chloride 108, carbon dioxide 25, anion gap of 15, BUN of 15, creatinine of 0.6. TSH 0.25. Troponin is 0.01. IMPRESSION: This is a 71-year-old female with past medical history significant for diabetes, hypertension, hyperlipidemia, lymphoma, status chemoradiation, admitted with cough, chest pain, atypical, but no evidence of acute myocardial infarction given the multiple risk factors for coronary artery disease, suggest echo, stress test, lipid profile, TSH, hemoglobin A1c. Though so far no evidence of acute coronary syndrome. We will add on lipid profile and TSH. I will keep NPO for now to get a stress test, further recommendation, hospital course, and finding of the initial workup, interim continue. Continue antibiotics for upper respiratory tract infection. Continue treatment for chronic obstructive pulmonary disease. Continue deep venous thrombosis prophylaxis. Continue atorvastatin and continue amlodipine. We will follow with you. Thank you, Dr. Figueroa for providing me opportunity in taking care of the patient, Raysa Belle. We will follow with you. Lacey Meza MD
--- NOTE | 2017-08-04 16:45 | CP.PCM.PN ---
<Yue Chowdhury - Last Filed: 08/04/17 16:42> Subjective - Date & Time of Evaluation Date of Evaluation: 08/04/17 Time of Evaluation: 16:42 - Subjective Subjective: Patient has been seen and examined. She is s/p echo and stress test. She still complains of orbital pain but states the pain has improved. She also still complains of a non-bloody productive cough and SOB (improved). She denies fevers, CP, abdominal pain, N/V/D, constipation, bowel, or urinary changes. Objective - Vital Signs/Intake and Output Vital Signs (last 24 hours): Temp Pulse Resp BP Pulse Ox 98.5 F 88 19 157/63 H 98 08/03/17 19:37 08/04/17 14:00 08/03/17 19:37 08/04/17 08:00 08/03/17 17:30 Intake and Output: 08/04/17 08/04/17 06:59 18:59 Intake Total 730 Output Total 1950 Balance -1220 - Medications Medications: Current Medications Albuterol/Ipratropium (Duoneb 3 Mg/0.5 Mg (3 Ml) Ud) 3 ml IH [id number] [facility] Last Admin: 08/04/17 14:07 Dose: Not Given Amlodipine Besylate (Norvasc) 5 mg PO DAILY [facility] Last Admin: 08/03/17 16:18 Dose: 5 mg Aspirin (Aspirin Chewable) 81 mg PO MWF [facility] Atenolol (Tenormin) 25 mg PO DAILY [facility] Last Admin: 08/03/17 16:17 Dose: 25 mg Atorvastatin Calcium (Lipitor) 40 mg PO QPM [facility] Last Admin: 08/03/17 18:09 Dose: 40 mg Benzonatate (Tessalon Perles) 100 mg PO TID [facility] Last Admin: 08/03/17 18:10 Dose: Not Given Donepezil HCl (Aricept) 5 mg PO DAILY [facility] Famotidine (Pepcid) 20 mg PO 1000,2200 [facility] Last Admin: 08/03/17 21:09 Dose: 20 mg Fluticasone Propionate (Flonase) 0 actuation NS BID [facility] Last Admin: 08/03/17 21:51 Dose: 1 spr Guaifenesin (Robitussin) 100 mg PO Q4H PRN PRN Reason: Cough Heparin Sodium (Porcine) (Heparin) 5,000 units SC Q12 ROSEMARIE PRN Reason: Protocol Last Admin: 08/03/17 21:08 Dose: 5,000 units Sodium Chloride (Sodium Chloride 0.9%) 1,000 mls @ 75 mls/hr IV .[id number] [facility] Last Admin: 08/03/17 16:19 Dose: 75 mls/hr Ceftriaxone Sodium (Rocephin 1 Gram Ivpb) 1 gm in 100 mls @ 100 mls/hr IVPB DAILY [facility] PRN Reason: Protocol Vancomycin HCl 2 gm/ Sodium (Chloride) 500 mls @ 170 mls/hr IVPB ONCE ONE PRN Reason: Protocol Stop: 08/04/17 22:56 Ibuprofen (Motrin Tab) 600 mg PO Q6H PRN PRN Reason: Pain, Mild (1-3) Last Admin: 08/04/17 08:22 Dose: 600 mg Methylprednisolone (Solu-Medrol) 40 mg IVP Q8 [facility] Montelukast Sodium (Singulair) 10 mg PO QPM [facility] Last Admin: 08/03/17 18:09 Dose: 10 mg Non-Formulary Medication (Calcium Carb, Citrate/Vit D3 [Calcium + D3 Er Tablet] ) 1 each PO DAILY [facility] Ondansetron HCl (Zofran Inj) 4 mg IVP Q4H PRN PRN Reason: nausea Polyethylene Glycol (Miralax) 17 gm PO BID [facility] Last Admin: 08/03/17 18:09 Dose: 17 gm Sodium Chloride ([place] Nasal [place]) 0 ml NS DAILY PRN PRN Reason: Nasal congestion Tetrahydrozoline HCl/Zinc Sulfate (Visine 0.05% Opht Soln) 1 ml OU BID [facility] - Labs Labs: 08/04/17 05:30 08/04/17 05:30 - Constitutional Appears: Well, Non-toxic, No Acute Distress - Head Exam Head Exam: ATRAUMATIC, NORMAL INSPECTION, NORMOCEPHALIC - Eye Exam Eye Exam: Periorbital tenderness Additional comments: b/l orbital erythema - ENT Exam ENT Exam: Mucous Membranes Moist - Respiratory Exam Respiratory Exam: Clear to Ausculation Bilateral. absent: Rales, Rhonchi, Wheezes, Stridor - Cardiovascular Exam Cardiovascular Exam: +S1, +S2. absent: JVD - GI/Abdominal Exam GI & Abdominal Exam: Soft, Normal Bowel Sounds. absent: Tenderness, Organomegaly - Extremities Exam Extremities Exam: absent: Pedal Edema - Neurological Exam Neurological Exam: Alert, Awake, Oriented x3 - Psychiatric Exam Psychiatric exam: Normal Affect, Normal Mood Assessment and Plan - Assessment and Plan (Free Text) Assessment: 71 yo F with PMH of Lymphoma, HTN, HLD, asthma, and C diff who presented with sinusitis with nausea, vomiting, and cough for the past 3 days, medication noncompliance, and subsequent chest pain with an elevated BNP. Admitted to the [facility] for observation Plan: 1. Sinusitis - Patient with nasal congestion, cough, n/v, multiple sick contacts prior to onset, and history of asthma and environmental allergies - CT sinus in the ER shows opacification of R maxillary sinus and R ethmoid sinus - Changed Solumedrol to 40 Q8 -Added Visine eye drops - Rocephin 1/Vanc 2 - Ibuprofen 600mg for pain - Zofran for nausea - Tessalon Perles for cough - Flonase BID - Saline Nasal spray PRN 2. CP 2/2 Asthma exacerbation vs musculoskeletal 2/2 cough - Patient has reproducible chest pain with anterior chest wall point tenderness , but mildly elevated BNP on admitting labs - EKG in the ED shows NSR with marked sinus arrhythmia - Cardio (Derrick) consulted, appreciate recs - Echo and stress test reads pending. - Repeat EKG in AM - Trop negative x3 - On ASA at home. 3. H/o Asthma - Lungs CTA b/l but patient actively coughing - CXR in ED shows no active disease - Started duonebs ROSEMARIE and PRN - Resume home Singulair 4. H/o HTN, HLD - Resume home meds Norvasc and Atorvostatin GI/DVT PPx Dispo: Will likely DC tomorrow and send home with solumedrol dose pack. Patient seen, discussed, and reviewed with attending Yue Chowdhury PGY1 <Haim Donaldson - Last Filed: 08/04/17 18:01> Objective - Vital Signs/Intake and Output Vital Signs (last 24 hours): Temp Pulse Resp BP Pulse Ox 98 F 79 18 156/79 H 98 08/04/17 17:59 08/04/17 17:59 08/04/17 17:59 08/04/17 17:59 08/03/17 17:30 - Medications Medications: Current Medications Albuterol/Ipratropium (Duoneb 3 Mg/0.5 Mg (3 Ml) Ud) 3 ml IH [id number] [facility] Last Admin: 08/04/17 14:07 Dose: Not Given Amlodipine Besylate (Norvasc) 5 mg PO DAILY [facility] Last Admin: 08/04/17 17:47 Dose: 5 mg Aspirin (Aspirin Chewable) 81 mg PO MWF [facility] Last Admin: 08/04/17 17:46 Dose: 81 mg Atenolol (Tenormin) 25 mg PO DAILY [facility] Last Admin: 08/04/17 17:46 Dose: 25 mg Atorvastatin Calcium (Lipitor) 40 mg PO QPM [facility] Last Admin: 08/04/17 17:46 Dose: 40 mg Benzonatate (Tessalon Perles) 100 mg PO TID [facility] Last Admin: 08/04/17 17:46 Dose: 100 mg Donepezil HCl (Aricept) 5 mg PO DAILY [facility] Famotidine (Pepcid) 20 mg PO 1000,2200 [facility] Last Admin: 08/04/17 10:00 Dose: Not Given Fluticasone Propionate (Flonase) 0 actuation NS BID [facility] Last Admin: 08/04/17 10:00 Dose: Not Given Guaifenesin (Robitussin) 100 mg PO Q4H PRN PRN Reason: Cough Heparin Sodium (Porcine) (Heparin) 5,000 units SC Q12 [facility] PRN Reason: Protocol Last Admin: 08/04/17 10:00 Dose: Not Given Sodium Chloride (Sodium Chloride 0.9%) 1,000 mls @ 75 mls/hr IV .[id number] [facility] Last Admin: 08/03/17 16:19 Dose: 75 mls/hr Ceftriaxone Sodium (Rocephin 1 Gram Ivpb) 1 gm in 100 mls @ 100 mls/hr IVPB DAILY [facility] PRN Reason: Protocol Last Admin: 08/04/17 17:48 Dose: 100 mls/hr Vancomycin HCl 2 gm/ Sodium (Chloride) 500 mls @ 170 mls/hr IVPB ONCE ONE PRN Reason: Protocol Stop: 08/04/17 22:56 Ibuprofen (Motrin Tab) 600 mg PO Q6H PRN PRN Reason: Pain, Mild (1-3) Last Admin: 08/04/17 08:22 Dose: 600 mg Methylprednisolone (Solu-Medrol) 40 mg IVP Q8 [facility] Montelukast Sodium (Singulair) 10 mg PO QPM [facility] Last Admin: 08/04/17 17:46 Dose: 10 mg Non-Formulary Medication (Calcium Carb, Citrate/Vit D3 [Calcium + D3 Er Tablet] ) 1 each PO DAILY [facility] Last Admin: 08/04/17 17:34 Dose: Not Given Ondansetron HCl (Zofran Inj) 4 mg IVP Q4H PRN PRN Reason: nausea Polyethylene Glycol (Miralax) 17 gm PO BID [facility] Last Admin: 08/04/17 17:47 Dose: 17 gm Sodium Chloride ([place] Nasal [place]) 0 ml NS DAILY PRN PRN Reason: Nasal congestion Tetrahydrozoline HCl/Zinc Sulfate (Visine 0.05% Opht Soln) 1 ml OU BID [facility] Attending/Attestation - Attestation I have personally seen and examined this patient.: Yes I have fully participated in the care of the patient.: Yes I have reviewed all pertinent clinical information, including history, physical exam and plan: Yes Notes (Text): 08/04/17 18:00 attending note; Patient seen and examined with resident. Patient is a 71-yr-old female with a history of asthma, lymphoma is admitted with recent URI symptoms. Patient also complains of pleuritic chest pain. cardiac enzymes negative. Status post stress test today. Follow up results. Case discussed with cardiology Dr. Meza in detail. Started on DuoNeb, IV steroids. sinusitis/periorbital swelling; continue IV Rocephin/vancomycin. possible discharge home tomorrow if clinically stable. upon discharge patient will follow-up with PMD . 08/04/17 18:01
[2017-08-04] MEDS: CALCIUM CARB CITRATE PO SCH (17:34)
[2017-08-04] MEDS: VIT D3 PO SCH (17:34)
[2017-08-04] MEDS: Amoxicillin-Clav 875-125 mg Tab PO SCH (17:38)
[2017-08-04] MEDS: MethylPREDNISolone 40 mg Vial IVP SCH ×2 (17:38→21:38)
--- NOTE | 2017-08-04 17:46 | CARD ---
APPROVED REPORT EKG Measurement Heart [id number] <Conclusion> Sinus rhythm with premature supraventricular complexes Nonspecific ST abnormality Abnormal ECG
[2017-08-04] MEDS: cefTRIAXone 1 gm 1 GM/100 ML BAG IVPB SCH (17:48)
--- NOTE | 2017-08-04 18:01 | CARD ---
APPROVED REPORT Protocol: LEXISCAN Test Type: Lexiscan Sestamibi Stress Test Attending Physician: Dr. Lacey Chandler Referring Physician: Dr. Milly Figueroa Test Indications: Chest Pain Height:5 ft 1 in Weight:142lbs Medications: Vancomycin,Miralax,Singulair, Solu-Mefrol,Motrin, Heparin, Flonase,Pepcid,Aricept,Rocephin, Lipitor,Tenormin,Aspirin, Augmentin, Neoneb Medical History: 71 y/o female. Hx of chest pain,shortness of breath,hypertension,hyperlipidemia,lymphoma. Target HR: 149 bpm Resting ECG: Sinuis Arrythmia. Resting Heart Rate: 76 bpm Resting Blood Pressure: 110/60mmHg Submaximum (85%): 127 bpm PROCEDURE Pharmacologic stress testing was performed using 0.4mg per 5ml of regadenoson given intravenously over 7-10 seconds. POST EXERCISE Reason for Termination: Protocol completed Target HR: No Max HR: 81 bpm 68% of Maximum Predicted HR: 149 bpm Exercise duration: 00:31 min:sec, 0 Stage Exercise capacity: 1.0METs Max Blood Pressure: 110/60mmHg Blood Pressure response to exercise: normal resting BP - appropriate response Heart Rate response to exercise: appropriate Chest Pain: No, none Angina index: 0 Arrhythmia: Yes, Rare PVCs. ST Change: No, none Deviation: 0 mm TEST SUMMARY [id number]. INFUSIONDOSE 100:[id number]/60.2. [id number]/.4. INTERPRETATION Stress EKG Conclusion: IV LEXISCAN NUCLEAR STRESS TEST NEGATIVE FOR CHEST PAIN AND NEGATIVE FOR ST-T CHANGES. NUCL;EAR SCAN REPORT PENDING. Signed by Lacey Chandler Electronically Approved: 08/04/2017 12:34:49 EXAM: Myocardial Perfusion REST/STRESS Stress Test Type: Pharmacologic Imaging Protocol Rest Spect myocardial perfusion imaging was performed in supine position 45 minutes following the injection of 10.2 mCi of Tc-99 Myoview. At peak stress, the patient was injected intravenously with 30.8mCi of Tc-99 tetrofosmin after an infusion time of 0 minutes and 10 seconds. Gated Stress Spect was performed 45 minutes after intravenous Tc-99 Myoview injection. The images were gated to evaluate regional wall motion and calculate ventricular ejection fraction.Images were reconstructed using backfilter projection method in short horizontal and verticle long axis. Spect slices were generated. LV Perfusion The quality of the study is good. The left ventricle is within normal limits in size with thickened myocardium. The right ventricle is unremarkable. The lung uptake is within normal limits. The distribution of tracer reveals normal uptake pattern throughout the LV myocardium on the stress study. The rest myocardial perfusion study shows no significant change. Wall Motion Wall motion study shows good contractility of the left ventricle. LVEF = 63%. Conclusion 1. Normal SPECT myocardial perfusion study. 2. Normal gated wall motion of the left ventricle. 3. In comparison with the last study of 04/20/2016, there is no significant change
--- NOTE | 2017-08-04 18:03 | CARD ---
APPROVED REPORT EXAM: Two-dimensional and M-mode echocardiogram with Doppler and color Doppler. INDICATION Chest Pain 2D DIMENSIONS Left Atrium (2D)3.8 (1.6-4.0cm)IVSd1.0 (0.7-1.1cm) LVDd4.7 (3.9-5.9cm)PWd1.3 (0.7-1.1cm) LVDs3.2 (2.5-4.0cm)FS (%) 30.8 % LVEF (%)58.3 (>50%) M-Mode DIMENSIONS Aortic Root2.80 (2.2-3.7cm)Aortic Cusp Exc.1.60 (1.5-2.0cm) Aortic Valve AoV Peak Kszauzld524.0cm/Adamaris Peak GR.10mmHg Mitral Valve MV E Jsdgiedl176.0cm/sMV A Phegqmhq40.0cm/sE/A ratio1.2 TDI E/Lateral E'0.0E/Medial E'0.0 Tricuspid Valve TR Peak Dtxgpzkt076mw/sRAP [id number] Peak Gr.21mmHg HRMV43sjNr LEFT VENTRICLE The left ventricle is normal size. There is mild concentric left ventricular hypertrophy. The left ventricular function is normal.EF-55% There is borderline hypokinesis in the apical anterior wall. The left ventricular diastolic function is normal. No left ventricle thrombus noted on this study. There is no ventricular septal defect visualized. There is no left ventricular aneurysm. There is no mass noted in the left ventricle. RIGHT VENTRICLE The right ventricle is normal size. There is normal right ventricular wall thickness. The right ventricular systolic function is normal. ATRIA The left atrium is borderline dilated. The right atrium size is normal. The interatrial septum is intact with no evidence for an atrial septal defect. AORTIC VALVE The aortic valve is thickened but opens well. The aortic valve is mildly to moderately sclerotic. There is mild aortic regurgitation. There is no aortic valvular stenosis. There is no aortic valvular vegetation. MITRAL VALVE The mitral valve is thickened but opens well. Mitral annular calcification is mild to moderate. Mitral regurgitation is mild. There is no mitral valve stenosis. There is no evidence of mitral valve prolapse. TRICUSPID VALVE The tricuspid valve leaflets are thickened , but open well. There is mild tricuspid regurgitation.RVSP-31 mmof H g. There is no tricuspid valve stenosis. There is no tricuspid valve prolapse or vegetation. PULMONIC VALVE The pulmonary valve is normal in structure. There is trace pulmonic valvular regurgitation. There is no pulmonic valvular stenosis. GREAT VESSELS The aortic root is normal in size. The ascending aorta is normal in size. The pulmonary artery is normal. The IVC is normal in size and collapses >50% with inspiration. PERICARDIAL EFFUSION There is no pleural effusion. There is no pericardial effusion. <Conclusion> Normal chamber Size. EF-55% Mild MR/TR/AR. RVSP-31 mmog HG
[2017-08-04] MEDS: Tetrahydrozoline Opht 0.05% Sol (15 ml) OU SCH (18:33)
[2017-08-04] MEDS ORDERED: Vancomycin 2 GM in Sodium Chloride 0.9% 500 ML IVPB ONE (20:00)
[2017-08-04] MEDS: guaiFENesin 100 mg/5 ml Syrup UD PO PRN (21:38)
[2017-08-04] MEDS: Sodium Chloride 0.9% 1,000 ML IV SCH (23:21)
[2017-08-05] MEDS: Albuterol-Ipratrop 3 mg / 0.5 (3 ml) UD IH SCH ×4 (01:32→20:04)
[2017-08-05] MEDS: MethylPREDNISolone 40 mg Vial IVP SCH ×3 (05:35→21:20)
[2017-08-05 06:08] LABS: BASO # 0.01 K/mm3 (0.0-2.0); BASO % 0.1 % (0.0-3.0); GRAN # 6.75 (1.4-6.5); GRAN % 79.8 % (50.0-68.0); HEMATOCRIT 35.5 % (36.0-48.0); LYMPH # 1.6 (1.2-3.4); LYMPH % 18.3 % (22.0-35.0); MEAN CELL VOLUME 84.5 fl (80.0-105.0); MEAN CORPUSCULAR HEMOGLOBIN 28.3 pg (25.0-35.0); MEAN CORPUSCULAR HGB CONC 33.5 g/dl (31.0-37.0); MEAN PLATELET VOLUME 9.8 fl (7.0-11.0); MONO # 0.2 (0.1-0.6); MONO % 1.8 % (1.0-6.0); RED CELL DISTRIBUTION WIDTH 13.6 % (11.5-14.5); WHITE BLOOD COUNT 8.5 10^3/ul (4.5-11.0)
[2017-08-05 06:33] LABS: ALB/GLOB RATIO 1.6 (1.1-1.8); ALKALINE PHOSPHATASE 68 U/L (38-126); ALT/SGPT 33 U/L (7-56); AST/SGOT 33 U/L (14-36); BILIRUBIN,TOTAL 0.5 mg/dL (0.2-1.3); BLOOD UREA NITROGEN 18 mg/dL (7-21); CALCIUM 8.7 mg/dL (8.4-10.5); CARBON DIOXIDE 23 mmol/L (21-33); CHLORIDE 112 mmol/L (98-107); GFR AFRICAN-AMERICAN > 60; GLUCOSE,RANDOM 137 mg/dL (70-110); POTASSIUM 4.7 mmol/L (3.6-5.0); SODIUM 144 mmol/L (132-148); TOTAL PROTEIN 5.9 g/dL (5.8-8.3)
[2017-08-05] MEDS: cefTRIAXone 1 gm 1 GM/100 ML BAG IVPB SCH (09:22)
[2017-08-05] MEDS: Fluticasone Nasal 50 mcg/Spray NS SCH ×2 (09:22→18:10)
[2017-08-05] MEDS: POLYETHYLENE GLYCOL 3350 17 GM/Dose PACKET PO SCH ×2 (09:22→18:10)
[2017-08-05] MEDS: Tetrahydrozoline Opht 0.05% Sol (15 ml) OU SCH ×2 (09:23→18:06)
[2017-08-05] MEDS: CALCIUM CARB CITRATE PO SCH (09:24)
[2017-08-05] MEDS: VIT D3 PO SCH (09:24)
[2017-08-05] MEDS: Sodium Chloride 0.9% 1,000 ML IV SCH ×3 (09:26→18:57)
[2017-08-05] MEDS: guaiFENesin 100 mg/5 ml Syrup UD PO PRN ×2 (09:32→21:28)
[2017-08-05] MEDS ORDERED: MethylPREDNISolone 40 mg Vial IVP SCH (12:30)
[2017-08-05 12:51] LABS: T3 0.96 ng/mL (0.97-1.69); THYROID STIMULATING HORMONE 0.13 mIU/mL (0.46-4.68)
--- NOTE | 2017-08-05 15:31 | PN ---
DATE: 08/05/2017 REASON FOR CONSULTATION: Followup cardiac evaluation for chest pain. SUBJECTIVE: Denies any chest pain, shortness of breath, any palpitation, mild cough. OBJECTIVE: Lying flat on the bed. Not in apparent distress. PHYSICAL EXAMINATION: VITAL SIGNS: Temperature afebrile, heart rate 81, and blood pressure 146/72. HEENT: PERRLA. Extraocular muscles intact. NECK: Supple. No carotid bruit or thyromegaly. CHEST: Clear to auscultation. HEART: S1 and S2 regular. ABDOMEN: Soft. EXTREMITIES: Clubbing and cyanosis negative. LABORATORY DATA: Blood workup as follows; WBC 8.5, hemoglobin 11.8, hematocrit 35.5, and platelet count 218. Chemistry shows; sodium 140, potassium 4.6, chloride 101, carbon dioxide 23, anion gap of 14, BUN 20, and creatinine 0.9. The patient underwent yesterday's stress test that shows normal myocardial perfusion study, no reversible ischemia. normal cardiac ejection fraction 63%. The patient had echocardiography also that showed normal chamber size ejection fraction 55%, mild MR, mild TR, mild AR, RV systolic pressure 31 mmHg. IMPRESSION: A 71-year-old female with past medical history significant for lymphoma, status post chemo, status post lymph node biopsy in the past, admitted with the complaint of chest pain, shortness of breath, and cough, mostly likely secondary to bronchitis, it has been atypical. So far, no evidence of acute myocardial infarction. The patient underwent stress test, negative for ischemia, preserved left ventricular function, mild mitral regurgitation and mild tricuspid regurgitation. RECOMMENDATIONS: Continue broad spectrum antibiotic. Continue aspirin. Continue DVT prophylaxis and discontinue telemetry. Continue amlodipine. We will follow with you. Thank you Dr. Figueroa for providing me the opportunity in taking care of the patient, Raysa Belle. Lacey Meza MD
--- NOTE | 2017-08-05 17:13 | CP.PCM.PN ---
"<Yue Chowdhury - Last Filed: 08/05/17 17:09> Subjective - Date & Time of Evaluation Date of Evaluation: 08/05/17 Time of Evaluation: 17:10 - Subjective Subjective: Patient has been seen and examined. She still complains of some periorbital pain. She complained of a morning headache that resolved with her PRN Ibuprofen. She also states that she still feels slightly SOB, but it has improved since yesterday. She denies any chest pain, palpitations, changes in vision, abdominal pain, N/V/D, constipation. Objective - Vital Signs/Intake and Output Vital Signs (last 24 hours): Temp Pulse Resp BP Pulse Ox 98 F 74 20 143/68 93 L 08/05/17 12:00 08/05/17 12:00 08/05/17 12:00 08/05/17 12:00 08/05/17 06:00 Intake and Output: 08/05/17 08/05/17 06:59 18:59 Intake Total 1580 Output Total 300 Balance 1280 - Medications Medications: Current Medications Albuterol/Ipratropium (Duoneb 3 Mg/0.5 Mg (3 Ml) Ud) 3 ml IH [id number] [facility] Last Admin: 08/05/17 13:52 Dose: 3 ml Amlodipine Besylate (Norvasc) 5 mg PO DAILY [facility] Last Admin: 08/05/17 09:21 Dose: 5 mg Aspirin (Aspirin Chewable) 81 mg PO MWF [facility] Last Admin: 08/04/17 17:46 Dose: 81 mg Atenolol (Tenormin) 25 mg PO DAILY [facility] Last Admin: 08/05/17 09:18 Dose: 25 mg Atorvastatin Calcium (Lipitor) 40 mg PO QPM [facility] Last Admin: 08/04/17 17:46 Dose: 40 mg Benzonatate (Tessalon Perles) 100 mg PO TID [facility] Last Admin: 08/05/17 13:50 Dose: 100 mg Donepezil HCl (Aricept) 5 mg PO HS [facility] Last Admin: 08/04/17 21:40 Dose: 5 mg Famotidine (Pepcid) 20 mg PO 1000,2200 [facility] Last Admin: 08/05/17 09:21 Dose: 20 mg Fluticasone Propionate (Flonase) 0 actuation NS BID [facility] Last Admin: 08/05/17 09:22 Dose: 2 spr Guaifenesin (Robitussin) 100 mg PO Q4H PRN PRN Reason: Cough Last Admin: 08/05/17 09:32 Dose: 100 mg Heparin Sodium (Porcine) (Heparin) 5,000 units SC Q12 [facility] PRN Reason: Protocol Last Admin: 08/05/17 09:20 Dose: 5,000 units Sodium Chloride (Sodium Chloride 0.9%) 1,000 mls @ 75 mls/hr IV .[id number] [facility] Last Admin: 08/05/17 16:14 Dose: Not Given Ceftriaxone Sodium (Rocephin 1 Gram Ivpb) 1 gm in 100 mls @ 100 mls/hr IVPB DAILY [facility] PRN Reason: Protocol Last Admin: 08/05/17 09:22 Dose: 100 mls/hr Ibuprofen (Motrin Tab) 600 mg PO Q6H PRN PRN Reason: Pain, Mild (1-3) Last Admin: 08/05/17 09:19 Dose: 600 mg Methimazole (Tapazole) 5 mg PO BID [facility] Methylprednisolone (Solu-Medrol) 40 mg IVP Q12 [facility] Montelukast Sodium (Singulair) 10 mg PO QPM [facility] Last Admin: 08/04/17 17:46 Dose: 10 mg Non-Formulary Medication (Calcium Carb, Citrate/Vit D3 [Calcium + D3 Er Tablet] ) 1 each PO DAILY [facility] Last Admin: 08/05/17 09:24 Dose: Not Given Ondansetron HCl (Zofran Inj) 4 mg IVP Q4H PRN PRN Reason: nausea Polyethylene Glycol (Miralax) 17 gm PO BID [facility] Last Admin: 08/05/17 09:22 Dose: Not Given Sodium Chloride (Ector Nasal [place]) 0 ml NS DAILY PRN PRN Reason: Nasal congestion Tetrahydrozoline HCl/Zinc Sulfate (Visine 0.05% Opht Soln) 1 ml OU BID [facility] Last Admin: 08/05/17 09:23 Dose: 2 drop - Labs Labs: 08/05/17 05:30 08/05/17 05:30 - Constitutional Appears: Non-toxic, No Acute Distress - Head Exam Head Exam: ATRAUMATIC, NORMOCEPHALIC - Eye Exam Eye Exam: EOMI, Periorbital tenderness - Respiratory Exam Respiratory Exam: Clear to Ausculation Bilateral, NORMAL BREATHING PATTERN. absent: Rhonchi - Cardiovascular Exam Cardiovascular Exam: +S1, +S2. absent: Murmur - GI/Abdominal Exam GI & Abdominal Exam: Soft, Normal Bowel Sounds. absent: Tenderness, Organomegaly - Extremities Exam Extremities Exam: Normal Capillary Refill. absent: Pedal Edema - Neurological Exam Neurological Exam: Alert, Awake, Oriented x3 - Psychiatric Exam Psychiatric exam: Normal Affect, Normal Mood Assessment and Plan - Assessment and Plan (Free Text) Assessment: 71 yo F with PMH of Lymphoma, HTN, HLD, asthma, and C diff who presented with sinusitis with nausea, vomiting, and cough for the past 3 days, medication noncompliance, and subsequent chest pain with an elevated BNP. Admitted to [facility] for observation Plan: 1. Sinusitis - Patient with nasal congestion, cough, n/v, multiple sick contacts prior to onset, and history of asthma and environmental allergies - CT sinus in the ER shows opacification of R maxillary sinus and R ethmoid sinus - Changed Solumedrol to 40 Q8 -Added Visine eye drops - Rocephin 1/Vanc 2 - Ibuprofen 600mg for pain - Zofran for nausea - Tessalon Perles for cough - Flonase BID - Saline Nasal spray PRN 2. Hyperthyroidism (Newly Diagnosed) -TSH 0.13, T3 0.96 | T4-13.0 -Endo Consulted -Thyroid studies repeated 2. CP 2/2 Asthma exacerbation vs musculoskeletal 2/2 cough - Patient has reproducible chest pain with anterior chest wall point tenderness , but mildly elevated BNP on admitting labs - EKG in the ED shows NSR with marked sinus arrhythmia - Cardio (Derrick) consulted, appreciate recs - Echo shows 55% EF.| Stress test is normal. - Trop negative x3 - On ASA at home. 3. H/o Asthma - Lungs CTA b/l but patient actively coughing - CXR in ED shows no active disease - Started duonebs ROSEMARIE and PRN - Resume home Singulair -Solumedrol tapered to Q12 4. H/o HTN, HLD - Resume home meds Norvasc and Atorvostatin GI/DVT PPx Dispo: Patient found to have hyperthyroidism. Endo consulted. Patient seen, discussed, and reviewed with attending Yue Chowdhury PGY1 <Josh Sterling B - Last Filed: 08/14/17 15:09> Objective - Vital Signs/Intake and Output Vital Signs (last 24 hours): Temp Pulse Resp BP Pulse Ox 97.9 F 80 18 150/70 95 08/06/17 08:00 08/06/17 08:00 08/06/17 08:00 08/06/17 09:20 08/06/17 08:00 - Labs Labs: 08/06/17 06:15 08/06/17 06:15 Attending/Attestation - Attestation I have personally seen and examined this patient.: Yes I have fully participated in the care of the patient.: Yes I have reviewed all pertinent clinical information, including history, physical exam and plan: Yes Notes (Text): I have seen and examined the patient at bedside. Agree with the above note with the following additions/ exceptions: Briefly this is 71 year old female with history of asthma, lymphoma, HTN, dylipidemia who presented with sinusitis, newly diagnosed hyperthyroidism and chest pain. Taper steroids and continue inhaler and antibiotics. Endo consult appreciated. TFT's repeated. ECho revealed EF of 55%. Serial cardiac iso normal. Stress test is also normal. Upon discharge patient will follow-up with PMD . Dr Josh Sterling"
[2017-08-05] MEDS: methIMAzole 5 MG TAB PO SCH (18:04)
[2017-08-06] MEDS: Albuterol-Ipratrop 3 mg / 0.5 (3 ml) UD IH SCH ×3 (01:32→13:29)
[2017-08-06 07:07] LABS: BASO # 0.01 K/mm3 (0.0-2.0); BASO % 0.1 % (0.0-3.0); GRAN # 6.5 (1.4-6.5); GRAN % 77.6 % (50.0-68.0); HEMATOCRIT 35.1 % (36.0-48.0); LYMPH # 1.4 (1.2-3.4); LYMPH % 16.4 % (22.0-35.0); MEAN CELL VOLUME 84.2 fl (80.0-105.0); MEAN CORPUSCULAR HEMOGLOBIN 28.1 pg (25.0-35.0); MEAN CORPUSCULAR HGB CONC 33.3 g/dl (31.0-37.0); MEAN PLATELET VOLUME 10.2 fl (7.0-11.0); MONO # 0.5 (0.1-0.6); MONO % 5.9 % (1.0-6.0); RED CELL DISTRIBUTION WIDTH 13.3 % (11.5-14.5); WHITE BLOOD COUNT 8.4 10^3/ul (4.5-11.0)
[2017-08-06 07:40] LABS: ALB/GLOB RATIO 1.6 (1.1-1.8); ALKALINE PHOSPHATASE 69 U/L (38-126); ALT/SGPT 37 U/L (7-56); AST/SGOT 37 U/L (14-36); BILIRUBIN,TOTAL 0.4 mg/dL (0.2-1.3); BLOOD UREA NITROGEN 18 mg/dL (7-21); CALCIUM 8.6 mg/dL (8.4-10.5); CARBON DIOXIDE 24 mmol/L (21-33); CHLORIDE 109 mmol/L (98-107); GFR AFRICAN-AMERICAN > 60; GLUCOSE,RANDOM 144 mg/dL (70-110); SODIUM 141 mmol/L (132-148); TOTAL PROTEIN 5.9 g/dL (5.8-8.3)
[2017-08-06 07:47] LABS: FREE T4 1.38 ng/dL (0.78-2.19); T4 12.8 ug/dL (5.5-11.0)
[2017-08-06 08:00] LABS: T3 0.98 ng/mL (0.97-1.69); THYROID STIMULATING HORMONE 0.07 mIU/mL (0.46-4.68)
[2017-08-06 08:05] VITALS: PULSE 80; RESP 18; TEMP 97.9; O2SAT 95
--- NOTE | 2017-08-06 08:34 | CON ---
LOCATION: In room 261. HISTORY OF PRESENT ILLNESS: This is a 71-year-old female admitted with acute exacerbation of asthmatic bronchitis and currently on IV steroid therapy and is now being referred for endocrine evaluation because of abnormal thyroid function studies. PAST MEDICAL HISTORY: As mentioned above; history of hypertension and dyslipidemia, history of chronic asthma with previous admissions for the same, history of lymphoma and underwent chemotherapy some years ago and has been followed closely by oncology and apparently has been in remission for the present time. FAMILY HISTORY: Positive for hypertension and heart disease. No known thyroid or endocrinopathy. SOCIAL HISTORY: The patient has supportive family. No known substance use. REVIEW OF SYSTEMS: As mentioned above admits to generalized body weakness with easy fatigability and tiredness, and suboptimal energy level. Also, admits to episodic dizziness and lightheadedness, worse on the day of admission. Moreover, admitted with precordial chest pain with progressive shortness of breath initially on exertion and then at rest with paroxysmal nocturnal dyspnea. Also, admits to progressively worsening productive cough with pleuritic chest pain as noted. Her oral intake has been variable with nausea, dyspepsia, and episodic vomiting episodes. PHYSICAL EXAMINATION: GENERAL: This is an average built female in no apparent distress. VITAL SIGNS: Blood pressure of 140/80, pulse of 70 beats per minute and regular, temperature 98, respirations 20, height is 5 feet 10 inches and weight is 147 pounds. HEENT: Head is normocephalic. Eyes; anicteric with pink conjunctivae. Funduscopy not possible at this time. Ears, nose and throat otherwise normal. NECK: Supple. Thyroid gland is normal in size. No carotid bruits or cervical adenopathy. HEART: S1 and S2 is rapid and regular. LUNGS: Shows scattered rhonchi. ABDOMEN: Flat and soft with positive bowel sounds. EXTREMITIES: No peripheral edema. Pulses are +2 bilaterally. LABORATORY DATA: Her chemistries showed a BUN of 18, sodium 144, potassium 4.7, chloride 112, CO2 is 23, glucose 137, and creatinine 3.7. Her thyroid studies; total T4 of 13.0 with a TSH of 0.13 and a total T3 of 0.96. ASSESSMENT: This is a 71-year-old female with early hyperthyroidism and associated cough with crescendo manifestations, presented here with acute exacerbation of asthmatic bronchitis and is now being referred for endocrine evaluation and management. We also exclude the possibility of acute suppurative thyroid syndrome, especially with the intercurrent IV steroid therapy suppression of the thyroid-stimulating hormone level as noted. Plan of management was discussed with the patient at this time. We will start her right away with a low-dose medical therapy with thyroid-stimulating immunoglobulin, which will confirm and indicate the presence of underlying thyroid autoimmunity. We will consider the request for a thyroid ultrasound as indicated. We will . Marium Dunaway MD
[2017-08-06] MEDS: POLYETHYLENE GLYCOL 3350 17 GM/Dose PACKET PO SCH (09:20)
[2017-08-06] MEDS: MethylPREDNISolone 40 mg Vial IVP SCH (09:20)
[2017-08-06] MEDS: cefTRIAXone 1 gm 1 GM/100 ML BAG IVPB SCH (09:21)
[2017-08-06 09:27] VITALS: BP 150/70
[2017-08-06] MEDS: CALCIUM CARB CITRATE PO SCH (09:48)
[2017-08-06] MEDS: VIT D3 PO SCH (09:48)
[2017-08-06] MEDS: Fluticasone Nasal 50 mcg/Spray NS SCH (09:48)
[2017-08-06] MEDS: guaiFENesin 100 mg/5 ml Syrup UD PO PRN (09:51)
[2017-08-06] MEDS: methIMAzole 5 MG TAB PO SCH (09:51)
[2017-08-06] MEDS: Tetrahydrozoline Opht 0.05% Sol (15 ml) OU SCH (13:45)
--- NOTE | 2017-08-06 14:10 | PN ---
DATE: 08/06/2017 REASON FOR CONSULTATION: Followup cardiac evaluation for chest pain. SUBJECTIVE: Denies any chest pain. Denies any shortness of breath. Denies any palpitation. OBJECTIVE: SUBJECTIVE: Lying flat on the bed, wanted to go home. VITAL SIGNS: Temperature afebrile, heart rate 80, and blood pressure 150/70. HEENT: PERRLA. Extraocular muscles intact. NECK: Supple. No carotid bruit or thyromegaly. CHEST: Clear to auscultation. HEART: S1 and S2 regular. ABDOMEN: Soft. EXTREMITIES: Clubbing and cyanosis negative. LABORATORY DATA: Blood workup as follows; WBC 8.5, hemoglobin 11, hematocrit 35.1, and platelet count 224. Chemistry shows; sodium 141, potassium 4, chloride 109, carbon dioxide 24, anion gap of 12, BUN 18, and creatinine 0.7. IMPRESSION: A 71-year-old female with a past medical history significant for lymphoma, status post chemo, status post lymph node biopsy in the past, admitted with the complaint of chest pain, shortness of breath, cough secondary to probably bronchitis. The patient essentially negative; no evidence of acute myocardial infarction. A stress test is negative. Echo shows mild mitral regurgitation and mild tricuspid regurgitation. RECOMMENDATIONS: Continue antibiotic for upper respiratory tract infection and bronchitis. status stable. No further cardiac workup is planned. Continue atorvastatin. Continue DVT prophylaxis. Continue baby aspirin. We will follow with you. Thank you Dr. Donaldson for providing us the opportunity in taking care of the patient. Lacey Meza MD
--- NOTE | 2017-08-06 14:26 | PN ---
LOCATION: Room 575. SUBJECTIVE: This is a 71-year-old female with admission for precordial chest pain and currently undergoing cardiac evaluation and management and is also being followed closely for metabolic management because of recent overt hyperthyroidism as noted thereof. Her repeat chemistry showed a BUN of 18, sodium 141, potassium 4.0, chloride 109, CO2 of 24, glucose 144 and creatinine 0.7. Her latest thyroid study showed T4 of 12.5 mcg/dL with TSH of less than 0.07 and a free T4 of 1.38. ASSESSMENT: This is a 71-year-old female with overt hyperthyroidism, both historically and clinically, and by chemically, now being followed closely for metabolic management because of recent evaluation overt thyrotoxicosis as noted thereof. PLAN: Plan of management was discussed with the patient's staff. We will continue her Tapazole given at the higher dose of 10 mg once daily as ordered for outpatient use to give her enough adherence and compliance of medication with one daily dose as ordered. We will obtain serum thyroid studies and supplement accordingly as needed. We will also do a thyroid peroxidase antibody and thyroid-stimulating immunoglobulin to confirm and indicate the presence of thyroid autoimmunity. We will obtain a thyroid ultrasound as indicated for this patient. We will follow and advise accordingly. Marium Dunaway MD
--- NOTE | 2017-08-06 18:52 | CP.PCM.DIS ---
<Yue Chowdhury - Last Filed: 08/06/17 19:17> Provider - Provider Date of Admission: 08/04/17 16:42 Attending physician: Josh Sterling MD Primary care physician: Felix Wills MD Consults: Cardiology - Dr. Meza Endo - Dr. Dunaway Time Spent in preparation of Discharge (in minutes): 45 Diagnosis - Discharge Diagnosis (1) Hyperthyroidism determined by thyroid function test Status: Acute Comment: New diagnoses (2) Acute sinusitis Status: Resolved Comment: resolved (3) Chest pain Status: Resolved Comment: resolved Hospital Course - Lab Results Lab Results: Most Recent Lab Values WBC 8.4 10^3/ul (4.5-11.0) 08/06/17 06:15 RBC 4.17 10^6/uL (3.5-6.1) 08/06/17 06:15 Hgb 11.7 g/dL (12.0-16.0) L 08/06/17 06:15 Hct 35.1 % (36.0-48.0) L 08/06/17 06:15 MCV 84.2 fl (80.0-105.0) 08/06/17 06:15 MCH 28.1 pg (25.0-35.0) 08/06/17 06:15 MCHC 33.3 g/dl (31.0-37.0) 08/06/17 06:15 RDW 13.3 % (11.5-14.5) 08/06/17 06:15 Plt Count 224 10^3/uL (120.0-450.0) 08/06/17 06:15 MPV 10.2 fl (7.0-11.0) 08/06/17 06:15 Gran % 77.6 % (50.0-68.0) H 08/06/17 06:15 Lymph % (Auto) 16.4 % (22.0-35.0) L 08/06/17 06:15 Casey % (Auto) 5.9 % (1.0-6.0) 08/06/17 06:15 Eos % (Auto) 0.0 % (1.5-5.0) L 08/06/17 06:15 Baso % (Auto) 0.1 % (0.0-3.0) 08/06/17 06:15 Gran # 6.50 (1.4-6.5) 08/06/17 06:15 Lymph # 1.4 (1.2-3.4) 08/06/17 06:15 Casey # 0.5 (0.1-0.6) 08/06/17 06:15 Eos # 0.0 (0.0-0.7) 08/06/17 06:15 Baso # 0.01 K/mm3 (0.0-2.0) 08/06/17 06:15 Sodium 141 mmol/L (132-148) 08/06/17 06:15 Potassium 4.0 mmol/L (3.6-5.0) 08/06/17 06:15 Chloride 109 mmol/L (98-107) H 08/06/17 06:15 Carbon Dioxide 24 mmol/L (21-33) 08/06/17 06:15 Anion Gap 12 (10-20) 08/06/17 06:15 BUN 18 mg/dL (7-21) 08/06/17 06:15 Creatinine 0.7 mg/dL (0.5-1.4) 08/06/17 06:15 Est GFR ( Amer) > 60 08/06/17 06:15 Est GFR (Non-Af Amer) > 60 08/06/17 06:15 POC Glucose (mg/dL) 146 mg/dL (65-110) H 08/06/17 07:10 Random Glucose 144 mg/dL (70-110) H 08/06/17 06:15 Hemoglobin A1c 5.7 % (4.2-6.5) 08/06/17 06:15 Calcium 8.6 mg/dL (8.4-10.5) 08/06/17 06:15 Phosphorus 3.3 mg/dL (2.5-4.5) 08/04/17 06:00 Magnesium 1.8 mg/dL (1.7-2.2) 08/04/17 06:00 Total Bilirubin 0.4 mg/dL (0.2-1.3) 08/06/17 06:15 AST 37 U/L (14-36) H 08/06/17 06:15 ALT 37 U/L (7-56) 08/06/17 06:15 Alkaline Phosphatase 69 U/L (38-126) 08/06/17 06:15 Lactate Dehydrogenase 587 U/L (333-699) 08/04/17 05:30 Total Creatine Kinase 98 U/L (35-230) 08/04/17 05:30 Troponin I < 0.01 ng/mL 08/04/17 05:30 NT-Pro-B Natriuret Pep 1270 pg/mL (0-450) H 08/03/17 08:30 Total Protein 5.9 g/dL (5.8-8.3) 08/06/17 06:15 Albumin 3.6 g/dL (3.0-4.8) 08/06/17 06:15 Globulin 2.2 gm/dL 08/06/17 06:15 Albumin/Globulin Ratio 1.6 (1.1-1.8) 08/06/17 06:15 Triglycerides 77 mg/dL (35-160) 08/04/17 06:00 Cholesterol 133 mg/dL (130-200) 08/04/17 06:00 LDL Cholesterol Direct 85 mg/dL (0-129) 08/04/17 06:00 HDL Cholesterol 34 mg/dL (29-60) 08/04/17 06:00 Free T4 1.38 ng/dL (0.78-2.19) 08/06/17 06:15 Thyroxine (T4) 12.8 ug/dL (5.5-11.0) H 08/06/17 06:15 Total T3 0.98 ng/mL (0.97-1.69) 08/06/17 06:15 TSH 3rd Generation 0.07 mIU/mL (0.46-4.68) L 08/06/17 06:15 - Hospital Course Hospital Course: Patient is a 71 year old female with a PMH of Lymphoma, HTN, HLD, asthma, and C- diff. Patient presented with vomiting, cough, nasal congestion, nausea, itchy eyes, and SOB. Patient also admits to mild non-radiating CP associated with the cough, and with deep inspiration, inconsistently worsened with activity, not associated with diaphoresis. Patient was admitted to telemetry, cardiac enzymes were ordered and Cardio was consulted. Patient was then started on Duoneb , Flonase, IV steroids, and antibiotic to cover for possible orbital cellultis. CXR showed no active disease. CT of orbit was ordered and read sinusitis while ruling out orbital cellulitis or abscess. BNP was 1270, Trops were negative x3. Echo showed LVEF of 63%, and stress test was normal. EKG read sinus rhythm with premature supraventricular complexes, nonspecific ST abnormality. All symptoms resolved by day of discharge. TSH was ordered and showed low TSH with high T4. Repeat test confirmed TSH and T4 findings and patient was diagnosed with hyperthyroidism. Endo was consulted on the case. Endo recommended patient be started on Tapazol and to follow up with senior staff accountant and primary within 1 week and in another 6 weeks for repeat TSH. Patient was prescribed Medrol dose pack, Tapazole, and Doxycycline. Patient is agreeable to plan and medications Patient seen, examined, and reviewed with Attending Yue Chowdhury PGY-1 Discharge Exam - Head Exam Head Exam: ATRAUMATIC, NORMOCEPHALIC - Eye Exam Eye Exam: EOMI, Normal appearance - ENT Exam ENT Exam: Mucous Membranes Moist - Neck Exam Additional comments: No Thyromegaly appreciated - Respiratory Exam Respiratory Exam: Clear to PA & Lateral, UNREMARKABLE - Cardiovascular Exam Cardiovascular Exam: RRR, +S1, +S2 - GI/Abdominal Exam GI & Abdominal Exam: Normal Bowel Sounds, Soft, Unremarkable. absent: Organomegaly, Tenderness - Extremities Exam Additional comments: no pedal edema - Neurological Exam Neurological exam: Alert, Altered, Oriented x3 - Psychiatric Exam Psychiatric exam: Normal Affect, Normal Mood - Skin Skin Exam: Dry, Intact, Normal Color, Warm Discharge Plan - Discharge Medications Prescriptions: Doxycycline Hyclate [Doryx] 100 mg PO Q12 #10 cap methIMAzole [Tapazole] 10 mg PO DAILY #30 tab - Follow Up Plan Condition: FAIR Disposition: HOME/ ROUTINE Instructions: Sinusitis (GEN) Additional Instructions: Follow up with Primary Physician within 1 week Follow up with Primary Physician again within 6 weeks to recheck TSH levels Schedule appointment with senior staff accountant (Dr. Ortiz) within 1-2 weeks. Start take new medication "Tapazole" Daily. Seguimiento con el Mdico Primario dentro de scott semana Seguir con el Mdico Primario de nuevo dentro de 6 semanas para volver a comprobar los niveles de TSH Programe pankaj con el endocrinlogo (Dr. Ortiz) dentro de 1-2 semanas. Comience a ankita el nuevo medicamento "Tapazole" Diariamente. Referrals: Felix Wills MD [Primary Care Provider] - Follow up with primary Tony Ortiz MD [Staff Provider] - <Josh Sterling - Last Filed: 08/14/17 15:14> Provider - Provider Date of Admission: 08/04/17 16:42 Attending physician: Josh Sterling MD Primary care physician: Felix Wills MD Hospital Course - Lab Results Lab Results: Most Recent Lab Values WBC 8.4 10^3/ul (4.5-11.0) 08/06/17 06:15 RBC 4.17 10^6/uL (3.5-6.1) 08/06/17 06:15 Hgb 11.7 g/dL (12.0-16.0) L 08/06/17 06:15 Hct 35.1 % (36.0-48.0) L 08/06/17 06:15 MCV 84.2 fl (80.0-105.0) 08/06/17 06:15 MCH 28.1 pg (25.0-35.0) 08/06/17 06:15 MCHC 33.3 g/dl (31.0-37.0) 08/06/17 06:15 RDW 13.3 % (11.5-14.5) 08/06/17 06:15 Plt Count 224 10^3/uL (120.0-450.0) 08/06/17 06:15 MPV 10.2 fl (7.0-11.0) 08/06/17 06:15 Gran % 77.6 % (50.0-68.0) H 08/06/17 06:15 Lymph % (Auto) 16.4 % (22.0-35.0) L 08/06/17 06:15 Casey % (Auto) 5.9 % (1.0-6.0) 08/06/17 06:15 Eos % (Auto) 0.0 % (1.5-5.0) L 08/06/17 06:15 Baso % (Auto) 0.1 % (0.0-3.0) 08/06/17 06:15 Gran # 6.50 (1.4-6.5) 08/06/17 06:15 Lymph # 1.4 (1.2-3.4) 08/06/17 06:15 Casey # 0.5 (0.1-0.6) 08/06/17 06:15 Eos # 0.0 (0.0-0.7) 08/06/17 06:15 Baso # 0.01 K/mm3 (0.0-2.0) 08/06/17 06:15 Sodium 141 mmol/L (132-148) 08/06/17 06:15 Potassium 4.0 mmol/L (3.6-5.0) 08/06/17 06:15 Chloride 109 mmol/L (98-107) H 08/06/17 06:15 Carbon Dioxide 24 mmol/L (21-33) 08/06/17 06:15 Anion Gap 12 (10-20) 08/06/17 06:15 BUN 18 mg/dL (7-21) 08/06/17 06:15 Creatinine 0.7 mg/dL (0.5-1.4) 08/06/17 06:15 Est GFR ( Amer) > 60 08/06/17 06:15 Est GFR (Non-Af Amer) > 60 08/06/17 06:15 POC Glucose (mg/dL) 129 mg/dL (65-110) H 08/06/17 11:44 Random Glucose 144 mg/dL (70-110) H 08/06/17 06:15 Hemoglobin A1c 5.7 % (4.2-6.5) 08/06/17 06:15 Calcium 8.6 mg/dL (8.4-10.5) 08/06/17 06:15 Phosphorus 3.3 mg/dL (2.5-4.5) 08/04/17 06:00 Magnesium 1.8 mg/dL (1.7-2.2) 08/04/17 06:00 Total Bilirubin 0.4 mg/dL (0.2-1.3) 08/06/17 06:15 AST 37 U/L (14-36) H 08/06/17 06:15 ALT 37 U/L (7-56) 08/06/17 06:15 Alkaline Phosphatase 69 U/L (38-126) 08/06/17 06:15 Lactate Dehydrogenase 587 U/L (333-699) 08/04/17 05:30 Total Creatine Kinase 98 U/L (35-230) 08/04/17 05:30 Troponin I < 0.01 ng/mL 08/04/17 05:30 NT-Pro-B Natriuret Pep 1270 pg/mL (0-450) H 08/03/17 08:30 Total Protein 5.9 g/dL (5.8-8.3) 08/06/17 06:15 Albumin 3.6 g/dL (3.0-4.8) 08/06/17 06:15 Globulin 2.2 gm/dL 08/06/17 06:15 Albumin/Globulin Ratio 1.6 (1.1-1.8) 08/06/17 06:15 Triglycerides 77 mg/dL (35-160) 08/04/17 06:00 Cholesterol 133 mg/dL (130-200) 08/04/17 06:00 LDL Cholesterol Direct 85 mg/dL (0-129) 08/04/17 06:00 HDL Cholesterol 34 mg/dL (29-60) 08/04/17 06:00 Free T4 1.38 ng/dL (0.78-2.19) 08/06/17 06:15 Thyroxine (T4) 12.8 ug/dL (5.5-11.0) H 08/06/17 06:15 Total T3 0.98 ng/mL (0.97-1.69) 08/06/17 06:15 TSH 3rd Generation 0.07 mIU/mL (0.46-4.68) L 08/06/17 06:15 Thyroid Stim Immunoglob <89 % baseline (<140) 08/06/17 06:15 Thyroperoxidase Ab <1 IU/mL (<9) 08/06/17 06:15 Attending/Attestation - Attestation I have personally seen and examined this patient.: Yes I have fully participated in the care of the patient.: Yes I have reviewed all pertinent clinical information, including history, physical exam and plan: Yes Notes (Text): I have seen and examined the patient at bedside. Agree with the above note with the following additions/ exceptions: Briefly this is 71 year old female with history of asthma, lymphoma, HTN, dylipidemia who presented with acute sinusitis , newly diagnosed hyperthyroidism and atypical chest pain. ACS ruled out. Stress and echo was normal. She was given flonase, medrol dose pack, po antibiotics for acute rhinosinusitis. She was also found to have hyperthyroidism. Tapazole was started. Upon discharge patient will follow-up with PMD and Dr Green senior staff accountant. Dr Josh Sterling
[2017-08-11 16:50] LABS: TSI <89 % baseline (<140)
== END 2017-08-06 16:21 | disposition home or self-care (01) ==
LOC: ED 07:25 → ERH 12:26 → 2RNO 17:20 → OBSVTOIN 08-04 16:42 → INTOOBSV 08-04 16:42 → 5RSO 08-05 22:23
PROVIDERS: ADMIT Internal Medicine; ATTEND Hospitalist
DX: J45.901 Unspecified asthma with (acute) exacerbation (principal); L03.213 Periorbital cellulitis; E05.90 Thyrotoxicosis, unspecified without thyrotoxic crisis or storm; I11.0 Hypertensive heart disease with heart failure; I50.9 Heart failure, unspecified; J44.9 Chronic obstructive pulmonary disease, unspecified; I08.1 Rheumatic disorders of both mitral and tricuspid valves; J01.90 Acute sinusitis, unspecified; H10.9 Unspecified conjunctivitis; E78.5 Hyperlipidemia, unspecified; I49.1 Atrial premature depolarization; R07.89 Other chest pain; Z85.72 Personal history of non-Hodgkin lymphomas; Z91.14 Patient's other noncompliance with medication regimen; Z79.82 Long term (current) use of aspirin; Z92.21 Personal history of antineoplastic chemotherapy
CPT/HCPCS: 36415; 70480; 71010; 78452; 80053; 80061; 82550; 82948; 83036; 83615; 83735; 83880; 84100; 84436; 84439; 84443; 84445; 84480; 84484; 85025; 86376; 93005; 93017; 93306; 94640; 94760; 96365; 96366; 96367; 96372; 96375; 96376; 99284; A9502; G0378; J0696; J1644; J2405; J2785; J2920; J7040

== ENCOUNTER 2017-09-28 09:47 | Emergency (ER) | payer OTHER, MEDICAID ==
[2017-09-28 09:56] VITALS: BMI 26.7
[2017-09-28 10:02] VITALS: RESP 18; TEMP 97.9
--- NOTE | 2017-09-28 10:29 | ED PDOC ---
Arrival/HPI - General Chief Complaint: Finger,Hand,&Wrist Time Seen by Provider: 09/28/17 10:24 Historian: Patient - History of Present Illness Narrative History of Present Illness (Text): 09/28/17 72 yo female come in for evaluation of Right 4th finger pain, swelling over PIPJ developed 3 days ago after sustained mechanical fall 3 days ago. Pt sts, "tripped at home over my shoe and fell down, hit the back of my head, trying to break fall with my Right hand". Otherwise, pt denies LOC, syncope, denies severe headache, visual changes, focal deficits, N/V, neck pain, CP, SOB, dyspnea, palpitation, abd. pain, back pain, denies obvious deformity, weakness, sensory or vascular deficits to B/L UEs and LEs. Ambulate to ED for evaluation, not in any apparent distress. Past Medical History - Provider Review Nursing Documentation Reviewed: Yes - Travel History Have you recently traveled outside [place] w/in the past 3 mons?: No - Infectious Disease Hx of Infectious Diseases: None - Tetanus Immunization Tetanus Immunization: Unknown - Cardiac Hx Cardiac Disorders: Yes Hx Hypertension: Yes Hx Pacemaker: No - Pulmonary Hx Respiratory Disorders: Yes Hx Asthma: Yes - Neurological Hx Neurological Disorder: No - HEENT Hx Cataracts: Yes (b/l sx) Hx Difficulty Chewing: No - Renal Hx Renal Disorder: No - Endocrine/Metabolic Hx Endocrine Disorders: Yes Hx Diabetes Mellitus Type 2: Yes Other/Comment: BORDERLINE DM - Hematological/Oncological Hx Blood Disorders: Yes Hx Cancer: Yes (lymphoma dx 2014) Hx Chemotherapy: Yes (last tx 02/2016) - Integumentary Hx Dermatological Disorder: No - Musculoskeletal/Rheumatological Hx Falls: No - Gastrointestinal Hx Gastrointestinal Disorders: Yes Hx Diverticulitis: Yes - Genitourinary/Gynecological Hx Genitourinary Disorders: No - Psychiatric Hx Psychophysiologic Disorder: No Hx Emotional Abuse: No Hx Physical Abuse: No Hx Substance Use: No - Past Surgical History Past Surgical History: Non-Contributing - Surgical History Hx Amputation: No Hx Appendectomy: Yes Hx Cholecystectomy: Yes (1997) Hx Hysterectomy: Yes (1986) Other/Comment: 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 right hand with skin graft due to dogs bite, mass on back removed 2011 and 2013 - Anesthesia Hx Anesthesia: Yes Hx Anesthesia Reactions: No Hx Malignant Hyperthermia: No - Suicidal Assessment Feels Threatened In Home Enviroment: No Family/Social History - Physician Review Nursing Documentation Reviewed: Yes Family/Social History: No Known Family HX Smoking Status: Never Smoked Hx Alcohol Use: No Hx Substance Use: No Allergies/Home Meds Allergies/Adverse Reactions: Allergies alendronate sodium [From Fosamax] Allergy (Intermediate, Verified 09/28/17 09:56 ) NAUSEA/VOMTING ciprofloxacin Allergy (Intermediate, Verified 09/28/17 09:56) NAUSEA/VOMITING codeine Allergy (Intermediate, Verified 09/28/17 09:56) DIZZINESS lisinopril Allergy (Unknown, Verified 09/28/17 09:56) UNKNOWN clarithromycin Allergy (Verified 09/28/17 09:56) unknown methimazole Allergy (Verified 09/28/17 09:56) NAUSEA sertraline Allergy (Verified 09/28/17 09:56) unknown Home Medications: Home Meds Medication Instructions Recorded Confirmed Atorvastatin Calcium [Lipitor] 40 mg PO QPM 03/28/12 09/28/17 Montelukast [Singulair] 10 mg PO QPM 03/28/12 09/28/17 Calcium Carb, Citrate/Vit D3 1 each PO DAILY 06/05/16 09/28/17 [Calcium + D3 ER Tablet] Aspirin [Aspirin Chewable] 81 mg PO MWF 01/18/17 09/28/17 Atenolol [Tenormin] 25 mg PO DAILY 01/18/17 09/28/17 Polyethylene Glycol 3350 [Miralax] 17 gm PO BID 01/18/17 09/28/17 Albuterol HFA [Ventolin HFA 90 1 inh INH BID PRN 08/03/17 09/28/17 mcg/actuation (8 g)] Budesonide/Formoterol Fumarate 1 inh INH BID 08/03/17 09/28/17 [Symbicort 80-4.5 Mcg Inhaler] Fluticasone Propionate [Flonase] 1 spray IN BID 08/03/17 09/28/17 Review of Systems - Review of Systems Constitutional: Normal. absent: Fevers Eyes: Normal. absent: Vision Changes ENT: Normal Respiratory: Normal. absent: SOB Cardiovascular: Normal. absent: Chest Pain, Palpitations, CAMARA, Syncope Gastrointestinal: Normal. absent: Abdominal Pain, Nausea, Vomiting Genitourinary Female: Normal Musculoskeletal: Joint Swelling, Other (Right 4th finger pain). absent: Back Pain, Neck Pain Skin: Normal Neurological: Normal. absent: Headache, Dizziness, Focal Weakness, Gait Changes Endocrine: Normal Hemo/Lymphatic: Normal Psychiatric: Normal Physical Exam Vital Signs Temp Pulse Resp BP Pulse Ox 09/28/17 11:31 68 18 134/65 96 09/28/17 10:01 97.9 F 70 18 136/60 95 Temperature: Afebrile Blood Pressure: Normal Pulse: Regular Respiratory Rate: Normal Appearance: Positive for: Well-Appearing, Non-Toxic, Comfortable Pain Distress: None Mental Status: Positive for: Alert and Oriented X 3 - Systems Exam Head: Present: Atraumatic, Normocephalic Pupils: Present: PERRL Extroacular Muscles: Present: EOMI Conjunctiva: Present: Normal Ears: Present: Normal Canal Mouth: Present: Moist Mucous Membranes, Normal Lips. No: Drooling, Trismus Neck: Present: Normal Range of Motion, Trachea Midline. No: Paraspinal Tenderness Respiratory/Chest: Present: Clear to Auscultation, Good Air Exchange. No: Respiratory Distress, Accessory Muscle Use Cardiovascular: Present: Regular Rate and Rhythm, Normal S1, S2. No: Murmurs Abdomen: Present: Normal Bowel Sounds. No: Tenderness, Distention, Peritoneal Signs, Rebound, Guarding Back: No: Midline Tenderness, Paraspinal Tenderness Upper Extremity: Present: NORMAL PULSES, Tenderness (Right 4th PIPJ with mod edema), Swelling, Neurovascularly Intact, Capillary Refill < 2s, Other (Right 5th finger amputated). No: Cyanosis Lower Extremity: Present: Normal Inspection. No: Edema Neurological: Present: GCS=15, Speech Normal, Motor Func Grossly Intact, Normal Sensory Function, Norm Deep Tendon Reflexes, Gait Normal, Memory Normal Skin: Present: Warm, Dry, Normal Color. No: Rashes, Laceration Psychiatric: Present: Alert, Oriented x 3, Normal Insight, Normal Concentration Medical Decision Making ED Course and Treatment: 09/28/17 On re-evaluation, pt is afebrile, hemodynamicaly stable. Non-toxic. Ambulatory in ED with stable gait. Head: AT/NC neck: (-) midline tenderness Right hand; exam c/w 4th PIPJ contusion, no neurovascular deficits. Neurologically intact. CT head was offered to patient, refused at present time. Risk vs benefits discussed, pt understand and still refuse head imaging. Right hand xray (+) severe DJD, no acute fx or dislocation. Aluminium finger splint applied to Right 4th finger. Pt advised OBS 48 hrs for any sign of head injury-return to ED at any time if any worsening or new changes. ref. to F/u with PMD, hand specialist in 2-3 days for re-eval. Pt understand stable for discharge now. - RAD Interpretation Radiology Orders: 09/28/17 10:36 HAND RIGHT 4TH DIGIT (FINGER) [RAD] Stat 09/28/17 11:38 HEAD W/O CONTRAST [CT] Stat PROCEDURE: Right Hand Radiographs. HISTORY: injury COMPARISON: None. FINDINGS: BONES: There has been resection of the 5th digit including the 5th metacarpal. JOINTS: Degenerative changes are seen in the PIP and DIP joints. SOFT TISSUES: Normal. OTHER FINDINGS: None. IMPRESSION: No acute findings - Medication Orders Current Medication Orders: Discontinued Medications Acetaminophen (Tylenol 325mg Tab) 975 mg PO STAT STA Stop: 09/28/17 10:26 Last Admin: 09/28/17 10:58 Dose: 975 mg [facility] Pain/Vitals Document 09/28/17 10:58 LOU (Rec: 09/28/17 10:[address] [id number]) Pain Reassessment Is This A Pain ReAssessment? Yes Presence of Pain Presence of Pain Yes Pain Scale Used Pain Scale Used Numeric Location Left, Right or Bilateral Right Pain Location Body Site 4th finger Description Sharp Intensity 6 Scale Used Numeric Prednisone (Prednisone Tab) 60 mg PO STAT ONE Stop: 09/28/17 11:03 Last Admin: 09/28/17 11:37 Dose: 60 mg Disposition/Present on Arrival - Present on Arrival Any Indicators Present on Arrival: No History of DVT/PE: No History of Uncontrolled Diabetes: No Urinary Catheter: No History of Decub. Ulcer: No History Surgical Site Infection Following: None - Disposition Have Diagnosis and Disposition been Completed?: Yes Diagnosis: Head injury, Finger contusion, DJD (degenerative joint disease) Disposition: HOME/ ROUTINE Disposition Time: 11:55 Patient Plan: Discharge Patient Problems: Current Active Problems Problem Status Onset Head injury Acute Finger contusion Acute DJD (degenerative joint disease) Acute Condition: STABLE Discharge Instructions (ExitCare): Osteoarthritis (ED), Head Injury (ED), Finger Sprain (ED) Print Language: ICELANDIC Additional Instructions: KEEP FINGER SPLINT FOR 1-2 WEEKS OBSERVE 48 HRS FOR ANY SIGN OF HEAD INJURY-INTRACTABLE HEADACHE, VOMITING, VISUAL CHANGES, FOCAL DEFICITS-RETURN TO ED IMMEDIATELY FOR RE-EVALUATION. TAKE MEDICATION PRESCRIBED FOR PAIN FOLLOW UP WITH PMD, HAND SPECIALIST IN 2-3 DAYS FOR RE-EVALUATION. Prescriptions: Acetaminophen [Tylenol 325mg tab] 975 mg PO TID #30 tab Prednisone [Deltasone] 20 mg PO DAILY #3 tablet Referrals: Felix Wills MD [Family Provider] - Follow up with primary [facility] [Outside] - Follow up with primary Forms: [facility] (Slovak)
--- NOTE | 2017-09-28 11:14 | RAD ---
PROCEDURE: Right Hand Radiographs. HISTORY: injury COMPARISON: None. FINDINGS: BONES: There has been resection of the 5th digit including the 5th metacarpal. JOINTS: Degenerative changes are seen in the PIP and DIP joints. SOFT TISSUES: Normal. OTHER FINDINGS: None. IMPRESSION: No acute findings
[2017-09-28 11:32] VITALS: BP 134/65; PULSE 68; O2SAT 96
== END 2017-09-28 12:06 | disposition home or self-care (01) ==
LOC: ED 09:47
DX: S09.90XA Unspecified injury of head, initial encounter (principal); S60.041A Contusion of right ring finger without damage to nail, initial encounter; W01.0XXA Fall on same level from slipping, tripping and stumbling without subsequent striking against object, initial encounter; Y92.009 Unspecified place in unspecified non-institutional (private) residence as the place of occurrence of the external cause; M19.90 Unspecified osteoarthritis, unspecified site; E11.9 Type 2 diabetes mellitus without complications; I10 Essential (primary) hypertension

== ENCOUNTER 2018-03-09 11:59 | Inpatient (IN) | payer MEDICARE, MEDICAID ==
[2018-03-09 12:22] VITALS: BMI 24.7
[2018-03-09] MEDS ORDERED: Sodium Chloride 0.9% 500 ML IV STA (13:22)
--- NOTE | 2018-03-09 13:27 | ED PDOC ---
Addendum entered and electronically signed by Lesvia Rondon DO 03/09/18 15:29 : NIHSS Stroke Scale - Date/Time Evaluation Performed Date Performed: 03/09/18 Time Performed: 14:00 When Was NIHSS Performed: Baseline - How Severe is the Stroke Level of Consciousness: 0=Alert LOC to Questions: 0=Both comments correct LOC to commands: 0=Obeys both correctly Best Gaze: 0=Normal Visual: 0=No visual loss Facial: 0=Normal Motor Arm - Left: 0=No drift Motor Arm - Right: 0=No drift Motor Leg - Left: 0=No drift Motor Leg - Right: 0=No drift Limb Ataxia: 0=Absent Sensory: 0=Normal Best Language: 0=No aphasia Dysarthia: 0=Normal articulation Extinction & Inattention (Neglect): 0=Normal, no object Score: 0 Severity Of Stroke: 0 = No Stroke Original Note: Arrival/HPI - General Historian: Patient - History of Present Illness Time/Duration: 1-3 hours Symptom Onset: Sudden Symptom Course: Unchanged <Lesvia Rondon - Last Filed: 03/09/18 15:28> <Justo Villagomez - Last Filed: 03/09/18 22:35> - General Chief Complaint: Weakness/Neurological Deficit Time Seen by Provider: 03/09/18 12:20 - History of Present Illness Narrative History of Present Illness (Text): 03/09/18 13:54 72 yo F with PMH of Lymphoma, HTN, HLD, asthma, C diff presents complaining of dizziness and dry mouth since 10 AM this morning. This morning, she had breakfast, which she normally does not have, then went to Dr. Fischer's office, where she had bloodwork drawn, got a B12 shot, and was told she would be started on iron. After leaving the doctor's office, she started to feel dizzy, and he mouth felt dry, she also feels like the left side of her face is numb/ weak. This morning, she also took a dose of promethazine, for cough, which she has used in the past. Patient also reports that two days ago, she stopped taking donepizil, because it was giving her nightmares. Patient denies any chest pain, shortness of breath, abdominal pain, fever, chills, diarrhea, constipation. Patient does report a "cold" with mild cough and nausea, which she has had for several days. She describes her dizziness as lightheadedness, and sensation of spinning. Dizziness is exacerbating by turning her head. Besides the donepezil and promethazine, patient has been taking all her medications as prescribed, including atenolol this morning. PMH: Lymphoma, HTN, HLD, asthma, C diff PSH: Lipoma excision, hysterectomy for fibroid Meds: atorvastatin 40 mg, montelukast 10 mg, atenolol 25 mg, amilodipine 25 mg, donepezil 5mg, symbicort PRN, albuterol PRN, flonase, Aspirin-MWF 1 tab. Soc: Denies Tob, EtOH, Illicits FHx: HLD in mother ALL: Codeine, lisinopril (vomiting), ciprofloxacin, Fosamax, sertraline, clarithroycin (Amine,[place]) Past Medical History - Infectious Disease Hx of Infectious Diseases: C.diff - Tetanus Immunization Tetanus Immunization: Unknown - Reproductive Menopause: Yes - Cardiac Hx Cardiac Disorders: Yes Hx Hypertension: Yes Other/Comment: ATHEROSCLEROTIC HEART DISEASE - Pulmonary Hx Respiratory Disorders: Yes Hx Asthma: Yes - Neurological Hx Neurological Disorder: Yes Hx Alzheimer's Disease: Yes - HEENT Hx HEENT Disorder: Yes Hx Cataracts: Yes (b/l sx) Hx Difficulty Chewing: No - Renal Hx Renal Disorder: Yes Hx Kidney Stones: Yes - Hematological/Oncological Hx Blood Disorders: Yes (VIT D DEF) Hx Blood Transfusions: No Hx Blood Transfusion Reaction: No Hx Cancer: Yes (lymphoma dx 2014) Hx Chemotherapy: Yes (last tx 02/2016) Hx Lymphoma: Yes - Integumentary Hx Dermatological Disorder: Yes Other/Comment: SCARRING TO BACK EXCISION OF LIPOMA TO BACK - Musculoskeletal/Rheumatological Hx Musculoskeletal Disorders: Yes (OSTEOARTHRITIS) Hx Arthritis: Yes Hx Falls: No Hx Unsteady Gait: Yes (cane occasionally) Other/Comment: CYST ON RT FINGER - Gastrointestinal Hx Gastrointestinal Disorders: Yes Hx Diverticulitis: Yes Other/Comment: GASTRITIS,DIVERTICULITIS,C DIFF 08-28-15 - Genitourinary/Gynecological Hx Genitourinary Disorders: No - Psychiatric Hx Psychophysiologic Disorder: No Hx Emotional Abuse: No Hx Physical Abuse: No Hx Substance Use: No - Past Surgical History Past Surgical History: Non-Contributing - Surgical History Hx Appendectomy: Yes Hx Cataract Extraction: Yes Hx Cholecystectomy: Yes (1997) Hx Hysterectomy: Yes (1986) Other/Comment: 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 right hand with skin graft due to dogs bite, mass on back removed 2011 and 2013 - Anesthesia Hx Anesthesia: Yes Hx Anesthesia Reactions: No Hx Malignant Hyperthermia: No - Suicidal Assessment Feels Threatened In Home Enviroment: No <Lesvia Rondon - Last Filed: 03/09/18 15:28> <Justo Villagomez - Last Filed: 03/09/18 22:35> - Patient History Narrative Patient History: Lymphoma, HTN, HLD, asthma, C diff (Lesvia Rondon) Family/Social History - Physician Review Nursing Documentation Reviewed: Yes Family/Social History: Unknown Family HX Smoking Status: Never Smoked Hx Alcohol Use: No Hx Substance Use: No <Lesvia Rondon - Last Filed: 03/09/18 15:28> Allergies/Home Meds <Lesvia Rondon - Last Filed: 03/09/18 15:28> <Justo Villagomez - Last Filed: 03/09/18 22:35> Allergies/Adverse Reactions: Allergies alendronate sodium [From Fosamax] Allergy (Intermediate, Verified 03/09/18 12:27 ) NAUSEA/VOMTING ciprofloxacin Allergy (Intermediate, Verified 03/09/18 12:27) NAUSEA/VOMITING codeine Allergy (Intermediate, Verified 03/09/18 12:27) DIZZINESS lisinopril Allergy (Unknown, Verified 03/09/18 12:27) UNKNOWN clarithromycin Allergy (Verified 03/09/18 12:27) unknown methimazole Allergy (Verified 03/09/18 12:27) NAUSEA sertraline Allergy (Verified 03/09/18 12:27) unknown Home Medications: Home Meds Medication Instructions Recorded Confirmed Atorvastatin Calcium [Lipitor] 40 mg PO QPM 03/28/12 03/09/18 Montelukast [Singulair] 10 mg PO QPM 03/28/12 03/09/18 Calcium Carb, Citrate/Vit D3 1 each PO DAILY 06/05/16 03/09/18 [Calcium + D3 ER Tablet] Aspirin [Aspirin Chewable] 81 mg PO MWF 01/18/17 03/09/18 Atenolol [Tenormin] 25 mg PO DAILY 01/18/17 03/09/18 Polyethylene Glycol 3350 [Miralax] 17 gm PO BID 01/18/17 03/09/18 Review of Systems - Review of Systems Constitutional: Normal Eyes: Normal ENT: Sore Throat. absent: Tinnitus Respiratory: Cough. absent: SOB, Wheezing Cardiovascular: Normal Gastrointestinal: Normal Genitourinary Female: Normal Musculoskeletal: Normal Skin: Normal Neurological: Dizziness, Facial Droop, Disequilibrium. absent: Focal Weakness Endocrine: Normal Hemo/Lymphatic: Normal Psychiatric: Normal <Lesvia Rondon - Last Filed: 03/09/18 15:28> Physical Exam Vital Signs Reviewed: Yes Temperature: Afebrile Blood Pressure: Hypertensive Pulse: Regular Respiratory Rate: Normal Appearance: Positive for: Well-Appearing, Non-Toxic, Comfortable Pain Distress: None Mental Status: Positive for: Alert and Oriented X 3 Finger Stick Blood Glucose: 90 - Systems Exam Head: Present: Atraumatic, Normocephalic Pupils: Present: PERRL Extroacular Muscles: Present: EOMI Conjunctiva: Present: Normal Mouth: Present: Moist Mucous Membranes Neck: Present: Normal Range of Motion Respiratory/Chest: Present: Clear to Auscultation, Good Air Exchange. No: Accessory Muscle Use, Wheezes Cardiovascular: Present: Regular Rate and Rhythm, Normal S1, S2 Abdomen: Present: Normal Bowel Sounds. No: Tenderness, Distention Upper Extremity: Present: Normal Inspection. No: Cyanosis, Edema Lower Extremity: Present: Normal Inspection. No: Edema, CALF TENDERNESS Neurological: Present: GCS=15, CN II-XII Intact, Speech Normal, Motor Func Grossly Intact, Normal Sensory Function, Normal Cerebellar Funct, Norm Deep Tendon Reflexes, Gait Normal, Memory Normal, Normal 2Pt Descrimination Skin: Present: Warm, Dry, Normal Color Psychiatric: Present: Alert, Oriented x 3, Normal Insight, Normal Concentration <Lesvia Rondon - Last Filed: 03/09/18 15:28> Vital Signs Temp Pulse Resp BP Pulse Ox 03/09/18 16:03 78 18 167/82 H 100 03/09/18 16:00 98 F 63 18 190/80 H 99 03/09/18 14:56 67 18 166/79 H 95 03/09/18 12:26 98.1 F 78 17 172/71 H 96 Medical Decision Making - Lab Interpretations I have reviewed the lab results: Yes Interpretation: No sign. chg./baseline - RAD Interpretation Blender Operator: Radiologist - EKG Interpretation Interpreted by ED Physician: Yes Type: 12 lead EKG <Lesvia Rondon - Last Filed: 03/09/18 15:28> <Justo Villagomez - Last Filed: 03/09/18 22:35> ED Course and Treatment: 03/09/18 14:15 Considering sudden onset of subjective facial numbness/weakness, must R/O CVA Ordered CBC, CMP, TSH, FT4, PT/PTT, UA, Head CT, EKG, CXR 03/09/18 14:55 UA pending; remainder of labs WNL; head CT negative. CXR negative. Patient ambulating without difficulty, reports resolution of symptoms. Considering sudden onset dizziness with reported left sided facial numbness/ weakness, concerning for TIA, will discuss with hospitalist for admission for observation 03/09/18 15:[address] Josh Sterling, who accepts patient to her service for admission to remote telemetry for observation for possible TIA (Lesvia Rondon) 03/09/18 22:32 Patient seen and evaluated with director of medical education. I reviewed history with patient with fudge candy maker present. Patient was seen and had no facial droop, steady gait, normal speech, no pronator drift, no focal motor or sensory deficits. No chest pain or sob. She describes to me episode of facial droop, mouth asymmetry, associated with dizziness. On re-exam, this has resolved while in ED. Suspect TIA, ddx includes vertigo, arrhtyhmia. CV stable while in ED. Will admit for monitoring and serial exams. (Justo Villagomez) - Lab Interpretations Lab Results: 03/09/18 13:35 03/09/18 13:35 Lab Results 03/09/18 14:30: Urine Color Yellow, Urine Appearance Clear, Urine pH 6.5, Ur Specific [place] <= 1.005, Urine Protein Negative, Urine Glucose (UA) Negative, Urine Ketones Negative, Urine Blood Negative, Urine Nitrate Negative, Urine Bilirubin Negative, Urine Urobilinogen 0.2, Ur Leukocyte Esterase Negative 03/09/18 13:35: Triglycerides 171 H, Cholesterol 133, LDL Cholesterol Direct 66 , HDL Cholesterol 39 03/09/18 13:35: PT 11.2, INR 0.98, APTT 29.1 03/09/18 13:35: Free T4 0.85, TSH 3rd Generation 0.85 03/09/18 13:35: Sodium 143, Potassium 4.3, Chloride 107, Carbon Dioxide 26, Anion Gap 15, BUN 19, Creatinine 0.7, Est GFR ( Amer) > 60, Est GFR (Non- Af Amer) > 60, Random Glucose 89, Calcium 9.8, Total Bilirubin 0.4, AST 26, ALT 26, Alkaline Phosphatase 67, Lactate Dehydrogenase 563, Total Creatine Kinase 59 , Troponin I < 0.01, Total Protein 6.2, Albumin 3.9, Globulin 2.3, Albumin/ Globulin Ratio 1.7 03/09/18 13:35: Influenza Typ A,B (EIA) Negative for flu a/b 03/09/18 13:35: WBC 5.9 D, RBC 4.69, Hgb 12.9, Hct 39.0, MCV 83.2, MCH 27.5, MCHC 33.1, RDW 14.0, Plt Count 165, MPV 10.0, Gran % 48.0 L, Lymph % (Auto) 40.4 H, [place] % (Auto) 7.6 H, Eos % (Auto) 3.2, Baso % (Auto) 0.8, Gran # 2.83, Lymph # (Auto) 2.4, [place] # (Auto) 0.5, Eos # (Auto) 0.2, Baso # (Auto) 0.05 03/09/18 12:47: POC Glucose (mg/dL) 90 - RAD Interpretation Radiology Orders: 03/09/18 13:22 HEAD W/O CONTRAST [CT] Stat 03/09/18 13:23 CHEST ONE VIEW [RAD] Stat - Medication Orders Current Medication Orders: Acetaminophen (Tylenol 325mg Tab) 650 mg PO Q6H PRN PRN Reason: Headache Albuterol Sulfate (Albuterol 0.5% Inhal Elyssa (2.5 Mg/0.5 Ml) Ud) 2.5 mg IH [id number] PRN PRN Reason: SOB Atenolol (Tenormin) 25 mg PO BID [facility] Last Admin: 03/09/18 17:34 Dose: 25 mg MAR Pulse and Blood Pressure Document 03/09/18 17:34 JW (Rec: 03/09/18 17:34 [id number]) Pulse Pulse Rate (60-90 beats/min) 63 Blood Pressure Blood Pressure (100/60-150/90 mm Hg) 190/80 Atorvastatin Calcium (Lipitor) 40 mg PO QPM [facility] Last Admin: 03/09/18 17:34 Dose: 40 mg Enoxaparin Sodium (Lovenox) 40 mg SC DAILY [facility]IE PRN Reason: Protocol Hydralazine HCl (Apresoline) 10 mg IVP Q6 PRN PRN Reason: Systolic Blood Pressure Montelukast Sodium (Singulair) 10 mg PO QPM [facility] Last Admin: 03/09/18 17:36 Dose: Discontinued Medications Aspirin (Aspirin Chewable) 81 mg PO STAT STA Stop: 03/09/18 15:49 Last Admin: 03/09/18 16:02 Dose: 81 mg Pneumococcal Polyvalent Vaccine (Pneumovax 23 Vaccine) 0.5 ml IM .ONCE ONE Stop: 03/09/18 20:39 NIHSS Scale ([place]) Time Performed: 13:00 - How Severe is the Stoke Baseline Level of Consciousness: 0=Alert LOC to Questions: 0=Both comments correct LOC to commands: 0=Obeys both correctly Best Gaze: 0=Normal Visual: 0=No visual loss Facial: 0=Normal Motor Arm - Left: 0=No drift Motor Arm - Right: 0=No drift Motor Leg - Left: 0=No drift Motor Leg - Right: 0=No drift Limb Ataxia: 0=Absent Sensory: 0=Normal Best Language: 0=No aphasia Dysarthia: 0=Normal articulation Extinction & Inattention (Neglect): 0=Normal, no object Score: 0 Risk Level: No Stroke Risk <Justo Villagomez - Last Filed: 03/09/18 22:35> rTPA Inclusion/Exclusion - Refusal of Treatment Patient Refused Treatment: Yes - Warning to TPA With Conditions Condition: Rapid Improvement <Justo Villagomez - Last Filed: 03/09/18 22:35> Disposition/Present on Arrival - Present on Arrival Any Indicators Present on Arrival: No History of DVT/PE: No History of Uncontrolled Diabetes: No Urinary Catheter: No History of Decub. Ulcer: No History Surgical Site Infection Following: None - Disposition Have Diagnosis and Disposition been Completed?: Yes Disposition Time: 15:14 Patient Plan: Admission <Lesvia Rondon - Last Filed: 03/09/18 15:28> <Justo Villagomez - Last Filed: 03/09/18 22:35> - Disposition Diagnosis: Dizziness, TIA (transient ischemic attack) Disposition: HOSPITALIZED Patient Problems: Current Active Problems Problem Status Onset Dizziness Acute Condition: FAIR
[2018-03-09 13:55] LABS: BASO # 0.05 K/mm3 (0.0-2.0); BASO % 0.8 % (0.0-3.0); EOS # 0.2 (0.0-0.7); EOS % 3.2 % (1.5-5.0); GRAN # 2.83 (1.4-6.5); HEMOGLOBIN 12.9 g/dL (12.0-16.0); LYMPH # 2.4 (1.2-3.4); LYMPH % 40.4 % (22.0-35.0); MEAN CELL VOLUME 83.2 fl (80.0-105.0); MEAN CORPUSCULAR HEMOGLOBIN 27.5 pg (25.0-35.0); MEAN CORPUSCULAR HGB CONC 33.1 g/dl (31.0-37.0); MONO # 0.5 (0.1-0.6); MONO % 7.6 % (1.0-6.0); RBC 4.69 10^6/uL (3.5-6.1); WHITE BLOOD COUNT 5.9 10^3/ul (4.5-11.0)
--- NOTE | 2018-03-09 14:04 | CT ---
PROCEDURE: CT HEAD WITHOUT CONTRAST. HISTORY: left facial numbness COMPARISON: 09/14/2015 TECHNIQUE: Axial computed tomography images were obtained through the head/brain without intravenous contrast. Radiation dose: Total exam DLP = 910 mGy-cm. This CT exam was performed using one or more of the following dose reduction techniques: Automated exposure control, adjustment of the mA and/or kV according to patient size, and/or use of iterative reconstruction technique. FINDINGS: HEMORRHAGE: No intracranial hemorrhage. BRAIN: No mass effect or edema. No atrophy or chronic microvascular ischemic changes. VENTRICLES: Unremarkable. No hydrocephalus. CALVARIUM: Unremarkable. PARANASAL SINUSES: Unremarkable as visualized. No significant inflammatory changes. MASTOID AIR CELLS: Unremarkable as visualized. No inflammatory changes. OTHER FINDINGS: None. IMPRESSION: No acute findings
[2018-03-09 14:09] LABS: ALB/GLOB RATIO 1.7 (1.1-1.8); ALBUMIN 3.9 g/dL (3.0-4.8); ALT/SGPT 26 U/L (7-56); AST/SGOT 26 U/L (14-36); BLOOD UREA NITROGEN 19 mg/dL (7-21); CALCIUM 9.8 mg/dL (8.4-10.5); GFR AFRICAN-AMERICAN > 60; GFR NON-AFRICAN AMERICAN > 60
[2018-03-09 14:20] LABS: TROPONIN I < 0.01 ng/mL
--- NOTE | 2018-03-09 14:22 | RAD ---
PROCEDURE: CHEST RADIOGRAPH, 1 VIEW HISTORY: dizziness; r/o CHF COMPARISON: 11/25/2017 FINDINGS: LUNGS: Clear. PLEURA: No pneumothorax or pleural fluid seen. CARDIOVASCULAR: Normal. OSSEOUS STRUCTURES: No significant abnormalities. VISUALIZED UPPER ABDOMEN: Normal. OTHER FINDINGS: None. IMPRESSION: No active disease. No acute/significant interval changes.
[2018-03-09 14:24] LABS: FREE T4 0.85 ng/dL (0.78-2.19)
[2018-03-09 14:42] LABS: INR 0.98 (0.93-1.08); PARTIAL THROMBOPLASTIN TIME 29.1 Seconds (25.1-36.5); PROTHROMBIN TIME 11.2 SECONDS (9.4-12.5)
[2018-03-09 14:45] LABS: PH,URINE 6.5 (4.7-8.0); URINE BILIRUBIN NEGATIVE (NEGATIVE); URINE BLOOD NEGATIVE (NEGATIVE); URINE GLUCOSE (UA) NEGATIVE (NEGATIVE); URINE LEUKOCYTE ESTERASE NEGATIVE Leu/uL (NEGATIVE); URINE PROTEIN NEGATIVE mg/dL (<30 mg/dL); URINE UROBILINOGEN 0.2 E.U./dL (<1 E.U./dL)
[2018-03-09 15:00] LABS: URINE APPEARANCE CLEAR (CLEAR); URINE COLOR YELLOW (YELLOW)
--- NOTE | 2018-03-09 16:22 | CP.PCM.HP ---
<Peggy Pizarro - Last Filed: 03/09/18 18:25> History of Present Illness - History of Present Illness History of Present Illness: HPI: Patient 72 year old with past medical of HTN, HLD, Lymphoma, asthma presented to [facility] for dizziness that started today. She reports that earlier today she started experiencing dizziness, sensation was the room spinning. This was associated with dry mouth and sensation of "lip pulling to the left side". Patient states that she was having productive cough with white sputum x 2 days. She took Promethazine in the morning for the past two days for this cough. Patient also reports that two days ago, she stopped taking donepizil, because it was giving her nightmares. In the ED initially, patient reports that she was still dizzy. At this time she admits to having a bitemporal headache, dizziness has slightly improved. Denies sore throat, dysphagia, fevers, chills, cp, palpitations, sob, urinary symptoms, changes in bowel habits, sick contacts, recent travel. Allergies: Alendronate, Ciprofloxacin, Codeine, Lisinopril, Sertraline, Fosamax Medications: Atorvastatin 40 mg, Montelukast 10 mg, Atenolol 25 mg, Donepezil 5mg, Symbicort PRN, Albuterol PRN, Aspirin-MWF 1 tab. Medical History: Asthma, HTN, HLD, lymphoma Social History: Denies alcohol, tobacco, drug use; lives alone, performs ADLs independently Surgical History: Lipoma excision in the back, hysterectomy for fibroid, cataract surgery Family History: Mother - Hyperlipidemia Present on Admission - Present on Admission Any Indicators Present on Admission: No Past Patient History - Infectious Disease Hx of Infectious Diseases: C.diff - Tetanus Immunizations Tetanus Immunization: Unknown - Past Medical History & Family History Past Medical History?: Yes - Past Social History Smoking Status: Never Smoked - CARDIAC Hx Cardiac Disorders: Yes Hx Hypertension: Yes Other/Comment: ATHEROSCLEROTIC HEART DISEASE - PULMONARY Hx Respiratory Disorders: Yes Hx Asthma: Yes - NEUROLOGICAL Hx Neurological Disorder: Yes Hx Alzheimer's Disease: Yes - HEENT Hx HEENT Problems: Yes Hx Cataracts: Yes (b/l sx) Hx Difficulty Chewing: No - RENAL Hx Chronic Kidney Disease: Yes Hx Kidney Stones: Yes - HEMATOLOGICAL/ONCOLOGICAL Hx Blood Disorders: Yes (VIT D DEF) Hx Blood Transfusions: No Hx Blood Transfusion Reaction: No Hx Cancer: Yes (lymphoma dx 2014) Hx Chemotherapy: Yes (last tx 02/2016) - INTEGUMENTARY Hx Dermatological Problems: Yes Other/Comment: SCARRING TO BACK EXCISION OF LIPOMA TO BACK - MUSCULOSKELETAL/RHEUMATOLOGICAL Hx Musculoskeletal Disorders: Yes (OSTEOARTHRITIS) Hx Arthritis: Yes Hx Falls: No Hx Unsteady Gait: Yes (cane occasionally) Other/Comment: CYST ON RT FINGER - GASTROINTESTINAL Hx Gastrointestinal Disorders: Yes Hx Diverticulitis: Yes Other/Comment: GASTRITIS,DIVERTICULITIS,C DIFF 08-28-15 - GENITOURINARY/GYNECOLOGICAL Hx Genitourinary Disorders: No - PSYCHIATRIC Hx Psychophysiologic Disorder: No Hx Emotional Abuse: No Hx Physical Abuse: No Hx Substance Use: No - SURGICAL HISTORY Hx Appendectomy: Yes Hx Cataract Extraction: Yes Hx Cholecystectomy: Yes (1997) Hx Hysterectomy: Yes (1986) Other/Comment: 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 right hand with skin graft due to dogs bite, mass on back removed 2011 and 2013 - ANESTHESIA Hx Anesthesia: Yes Hx Anesthesia Reactions: No Hx Malignant Hyperthermia: No Meds Allergies/Adverse Reactions: Allergies Allergy/AdvReac Type Severity Reaction Status Date / Time alendronate sodium Allergy Intermediate NAUSEA/VOMT Verified 03/09/18 12:27 [From Fosamax] ING ciprofloxacin Allergy Intermediate NAUSEA/VOMI Verified 03/09/18 12:27 TING codeine Allergy Intermediate DIZZINESS Verified 03/09/18 12:27 lisinopril Allergy Unknown UNKNOWN Verified 03/09/18 12:27 clarithromycin Allergy unknown Verified 03/09/18 12:27 methimazole Allergy NAUSEA Verified 03/09/18 12:27 sertraline Allergy unknown Verified 03/09/18 12:27 Physical Exam - Constitutional Appears: Well, No Acute Distress - Head Exam Head Exam: ATRAUMATIC, NORMAL INSPECTION, NORMOCEPHALIC - Eye Exam Eye Exam: EOMI, Normal appearance Pupil Exam: NORMAL ACCOMODATION - ENT Exam ENT Exam: Mucous Membranes Moist - Respiratory Exam Respiratory Exam: Clear to Auscultation Bilateral, NORMAL BREATHING PATTERN. absent: Rales, Rhonchi, Wheezes, Respiratory Distress - Cardiovascular Exam Cardiovascular Exam: REGULAR RHYTHM, +S1, +S2. absent: Systolic Murmur - GI/Abdominal Exam GI & Abdominal Exam: Normal Bowel Sounds, Soft. absent: Guarding, Rebound, Rigid, Tenderness - Extremities Exam Extremities exam: Positive for: normal inspection Additional comments: Right Hand: Missing 5th digit - Back Exam Back exam: NORMAL INSPECTION - Neurological Exam Neurological exam: Alert, CN II-XII Intact, Oriented x3 - Psychiatric Exam Psychiatric exam: Normal Affect, Normal Mood - Skin Skin Exam: Dry, Normal Color, Warm Results - Vital Signs Recent Vital Signs: Last Vital Signs Temp 98.1 F 03/09/18 12:26 Pulse 78 03/09/18 16:03 Resp 18 03/09/18 16:03 BP 167/82 H 03/09/18 16:03 Pulse Ox 100 03/09/18 16:03 - Labs Result Diagrams: 03/09/18 13:35 03/09/18 13:35 Labs: Laboratory Results - last 24 hr 03/09/18 03/09/18 03/09/18 12:47 13:35 13:35 WBC 5.9 D RBC 4.69 Hgb 12.9 Hct 39.0 MCV 83.2 MCH 27.5 MCHC 33.1 RDW 14.0 Plt Count 165 MPV 10.0 Gran % 48.0 L Lymph % (Auto) 40.4 H Sear[place] % (Auto) 7.6 H Eos % (Auto) 3.2 Baso % (Auto) 0.8 Gran # 2.83 Lymph # (Auto) 2.4 Searcy # (Auto) 0.5 Eos # (Auto) 0.2 Baso # (Auto) 0.05 PT INR APTT Sodium Potassium Chloride Carbon Dioxide Anion Gap BUN Creatinine Est GFR ( Amer) Est GFR (Non-Af Amer) POC Glucose (mg/dL) 90 Random Glucose Calcium Total Bilirubin AST ALT Alkaline Phosphatase Lactate Dehydrogenase Total Creatine Kinase Troponin I Total Protein Albumin Globulin Albumin/Globulin Ratio Free T4 TSH 3rd Generation Urine Color Urine Appearance Urine pH Ur Specific Hanna Urine Protein Urine Glucose (UA) Urine Ketones Urine Blood Urine Nitrate Urine Bilirubin Urine Urobilinogen Ur Leukocyte Esterase Influenza Typ A,B (EIA) Negative for flu a/b 03/09/18 03/09/18 03/09/18 13:35 13:35 13:35 WBC RBC Hgb Hct MCV MCH MCHC RDW Plt Count MPV Gran % Lymph % (Auto) Searcy % (Auto) Eos % (Auto) Baso % (Auto) Gran # Lymph # (Auto) Searcy # (Auto) Eos # (Auto) Baso # (Auto) PT 11.2 INR 0.98 APTT 29.1 Sodium 143 Potassium 4.3 Chloride 107 Carbon Dioxide 26 Anion Gap 15 BUN 19 Creatinine 0.7 Est GFR ( Amer) > 60 Est GFR (Non-Af Amer) > 60 POC Glucose (mg/dL) Random Glucose 89 Calcium 9.8 Total Bilirubin 0.4 AST 26 ALT 26 Alkaline Phosphatase 67 Lactate Dehydrogenase 563 Total Creatine Kinase 59 Troponin I < 0.01 Total Protein 6.2 Albumin 3.9 Globulin 2.3 Albumin/Globulin Ratio 1.7 Free T4 0.85 TSH 3rd Generation 0.85 Urine Color Urine Appearance Urine pH Ur Specific Hanna Urine Protein Urine Glucose (UA) Urine Ketones Urine Blood Urine Nitrate Urine Bilirubin Urine Urobilinogen Ur Leukocyte Esterase Influenza Typ A,B (EIA) 03/09/18 14:30 WBC RBC Hgb Hct MCV MCH MCHC RDW Plt Count MPV Gran % Lymph % (Auto) Searcy % (Auto) Eos % (Auto) Baso % (Auto) Gran # Lymph # (Auto) Searcy # (Auto) Eos # (Auto) Baso # (Auto) PT INR APTT Sodium Potassium Chloride Carbon Dioxide Anion Gap BUN Creatinine Est GFR ( Amer) Est GFR (Non-Af Amer) POC Glucose (mg/dL) Random Glucose Calcium Total Bilirubin AST ALT Alkaline Phosphatase Lactate Dehydrogenase Total Creatine Kinase Troponin I Total Protein Albumin Globulin Albumin/Globulin Ratio Free T4 TSH 3rd Generation Urine Color Yellow Urine Appearance Clear Urine pH 6.5 Ur Specific Hanna <= 1.005 Urine Protein Negative Urine Glucose (UA) Negative Urine Ketones Negative Urine Blood Negative Urine Nitrate Negative Urine Bilirubin Negative Urine Urobilinogen 0.2 Ur Leukocyte Esterase Negative Influenza Typ A,B (EIA) Assessment & Plan - Assessment and Plan (Free Text) Plan: Patient is a 72 year old female with past medical history of HTN, HLD, Asthma, lymphoma presented to [facility] for dizziness. Patient states that she took promethazine this morning for cough. CT head negative. Admitted for observation. 1. Dizziness likely 2/2 medication use (rule out cardioneurogenic causes) -Admit to telemetry -CT head: no acute changes -EKG showed NSR, no ST changes -Carotid dopplers, echocardiogram ordered -Last Echo 07/2017 showed EF 55%, mild TR/MR/AR; Last Stress test in 2017 was normal -F/U lipid panel, hgA1c, trend troponins q8H -Orthostatics -Tylenol 650mg PO Q6H prn headache -Continue Lipitor 40mg PO QPM -Common reactions of Promethazine include dizziness, xerostomia -Neurology on consult, help appreciated 2. Acute Bronchitis (viral vs allergic) -CXR showing no active disease -No leukocytosis, afebrile -Albuterol prn shortness of breath -Will continue to monitor 3. History of Asthma -Continue Montilukast 1 tab PO daily -Albuterol prn shortness of breath 4. History of Hypertension -BPs elevated, SBP 160-170s -Patient on Atenolol 25mg PO BID at home -Continue home medications -Hydralazine prn -Monitor Vitals GI/DVT ppx -No GI ppx indicated at this time, low risk for stress ulcers -Lovenox 40mg SC daily <Josh Sterling - Last Filed: 03/10/18 08:36> Results - Vital Signs Recent Vital Signs: Last Vital Signs Temp 97.7 F 03/10/18 08:27 Pulse 61 03/10/18 08:27 Resp 18 03/10/18 08:27 BP 145/73 03/10/18 08:27 Pulse Ox 100 03/10/18 08:27 - Labs Result Diagrams: 03/10/18 05:30 03/10/18 05:30 Labs: Laboratory Results - last 24 hr 03/09/18 03/10/18 03/10/18 19:08 05:30 05:30 WBC 5.3 RBC 4.57 Hgb 12.3 Hct 38.1 MCV 83.4 MCH 26.9 MCHC 32.3 RDW 13.9 Plt Count 150 MPV 9.8 Gran % 48.3 L Lymph % (Auto) 36.0 H Searcy % (Auto) 11.3 H Eos % (Auto) 3.8 Baso % (Auto) 0.6 Gran # 2.58 Lymph # (Auto) 1.9 Searcy # (Auto) 0.6 Eos # (Auto) 0.2 Baso # (Auto) 0.03 Sodium 144 Potassium 4.1 Chloride 106 Carbon Dioxide 29 Anion Gap 13 BUN 15 Creatinine 0.7 Est GFR ( Amer) > 60 Est GFR (Non-Af Amer) > 60 Random Glucose 85 Calcium 9.5 Total Bilirubin 0.7 AST 29 ALT 25 Alkaline Phosphatase 63 Troponin I < 0.01 0.02 D Total Protein 6.0 Albumin 3.6 Globulin 2.5 Albumin/Globulin Ratio 1.5 Attending/Attestation - Attestation I have personally seen and examined this patient.: Yes I have fully participated in the care of the patient.: Yes I have reviewed all pertinent clinical information: Yes Notes (Text): I have seen and examined the patient at bedside. Agree with the above note with the following additions/ exceptions: Briefly this is 72 year old female with history of HTN, dyslipidemia, lymphoma, asthma who was admitted for evaluation of dizziness which started today. Associated symptoms include local sensory impairement on left side of the face, xerostomia and blurry vision which was transient. Her most of the symptoms have resolved now. CT head and orthostatics negative. EKG wnl. Last echo revealed EF 55% and last stress test was normal. Her symptoms can be due to anticholinergic effects of promethazine vs Rule out TIA. Neurology on consult. Carotid US ordered. Continue tle monitoring for 24 hours. Patient is able to do ADLs and IADLs without assistance. Continue other medications. Upon discharge patient will folow up with Dr Wills. Dr Josh Sterling.
[2018-03-09] MEDS ORDERED: Albuterol HFA 90 mcg/actuation (8 g) IH PRN (18:01)
[2018-03-09] MEDS ORDERED: Albuterol 0.5% Inhal Sol (2.5 mg/0.5 ml) UD IH PRN (18:06)
[2018-03-09 18:39] LABS: HDL CHOLESTEROL 39 mg/dL (29-60)
[2018-03-09 18:49] LABS: LDL CHOLESTEROL 66 mg/dL (0-129)
[2018-03-09] MEDS ORDERED: Pneumococcal 23-Valent Vaccine IM ONE (20:38)
[2018-03-10] MEDS ORDERED: Levalbuterol 1.25 MG/3 ML Inhal Soln UD IH PRN (01:37)
[2018-03-10 06:28] LABS: BASO # 0.03 K/mm3 (0.0-2.0); BASO % 0.6 % (0.0-3.0); EOS # 0.2 (0.0-0.7); EOS % 3.8 % (1.5-5.0); GRAN # 2.58 (1.4-6.5); GRAN % 48.3 % (50.0-68.0); HEMOGLOBIN 12.3 g/dL (12.0-16.0); LYMPH # 1.9 (1.2-3.4); MEAN CELL VOLUME 83.4 fl (80.0-105.0); MEAN CORPUSCULAR HEMOGLOBIN 26.9 pg (25.0-35.0); MEAN CORPUSCULAR HGB CONC 32.3 g/dl (31.0-37.0); MEAN PLATELET VOLUME 9.8 fl (7.0-11.0); MONO # 0.6 (0.1-0.6); MONO % 11.3 % (1.0-6.0); RBC 4.57 10^6/uL (3.5-6.1); RED CELL DISTRIBUTION WIDTH 13.9 % (11.5-14.5); WHITE BLOOD COUNT 5.3 10^3/ul (4.5-11.0)
[2018-03-10 06:52] LABS: ALB/GLOB RATIO 1.5 (1.1-1.8); ALBUMIN 3.6 g/dL (3.0-4.8); ALT/SGPT 25 U/L (7-56); AST/SGOT 29 U/L (14-36); BLOOD UREA NITROGEN 15 mg/dL (7-21); CALCIUM 9.5 mg/dL (8.4-10.5); GFR AFRICAN-AMERICAN > 60; GFR NON-AFRICAN AMERICAN > 60; TROPONIN I 0.02 ng/mL
--- NOTE | 2018-03-10 08:51 | CP.PCM.PN ---
"<WillieYue lozano - Last Filed: 03/10/18 11:59> Subjective - Date & Time of Evaluation Date of Evaluation: 03/10/18 Time of Evaluation: 08:48 - Subjective Subjective: Patient seen and examined at bedside. It was reported that patient had 16 beats of V-tach overnight but was asymptomatic. Patient complains of mild dizziness when getting up and walking. She also complains of a headache. Objective - Vital Signs/Intake and Output Vital Signs (last 24 hours): Temp Pulse Resp BP Pulse Ox 97.7 F 61 18 145/73 100 03/10/18 08:27 03/10/18 08:27 03/10/18 08:27 03/10/18 08:27 03/10/18 08:27 Intake and Output: 03/10/18 03/10/18 06:59 18:59 Intake Total 600 Balance 600 - Medications Medications: Current Medications Acetaminophen (Tylenol 325mg Tab) 650 mg PO Q6H PRN PRN Reason: Headache Albuterol Sulfate (Albuterol 0.5% Inhal Elyssa (2.5 Mg/0.5 Ml) Ud) 2.5 mg IH [id number] PRN PRN Reason: SOB Atenolol (Tenormin) 25 mg PO BID [facility] Last Admin: 03/09/18 17:34 Dose: 25 mg Atorvastatin Calcium (Lipitor) 40 mg PO QPM [facility] Last Admin: 03/09/18 17:34 Dose: 40 mg Enoxaparin Sodium (Lovenox) 40 mg SC DAILY [facility] PRN Reason: Protocol Hydralazine HCl (Apresoline) 10 mg IVP Q6 PRN PRN Reason: Systolic Blood Pressure Montelukast Sodium (Singulair) 10 mg PO QPM [facility] Last Admin: 03/09/18 17:36 Dose: Not Given - Labs Labs: 03/10/18 05:30 03/10/18 05:30 PT 11.2 SECONDS (9.4-12.5) 03/09/18 13:35 INR 0.98 (0.93-1.08) 03/09/18 13:35 APTT 29.1 Seconds (25.1-36.5) 03/09/18 13:35 - Additional Findings Additional findings: - Constitutional Appears: Well, No Acute Distress - Head Exam Head Exam: ATRAUMATIC, NORMAL INSPECTION, NORMOCEPHALIC - Eye Exam Eye Exam: EOMI, Normal appearance Pupil Exam: NORMAL ACCOMODATION - ENT Exam ENT Exam: Mucous Membranes Moist - Respiratory Exam Respiratory Exam: Clear to Auscultation Bilateral, NORMAL BREATHING PATTERN. absent: Rales, Rhonchi, Wheezes, Respiratory Distress - Cardiovascular Exam Cardiovascular Exam: REGULAR RHYTHM, +S1, +S2. absent: Systolic Murmur - GI/Abdominal Exam GI & Abdominal Exam: Normal Bowel Sounds, Soft. absent: Guarding, Rebound, Rigid, Tenderness - Extremities Exam Extremities exam: Positive for: normal inspection Additional comments: Right Hand: Missing 5th digit - Back Exam Back exam: NORMAL INSPECTION - Neurological Exam Neurological exam: Alert, CN II-XII Intact, Oriented x3 - Psychiatric Exam Psychiatric exam: Normal Affect, Normal Mood - Skin Skin Exam: Dry, Normal Color, Warm Assessment and Plan - Assessment and Plan (Free Text) Assessment: Patient is a 72 year old female with past medical history of HTN, HLD, Asthma, lymphoma presented [place] [facility] [place]. Patient states that she took promethazine this morning for cough. CT head negative. Admitted for observation. Plan: 1. Dizziness likely 2/2 medication use (rule out cardioneurogenic causes) -Admit to telemetry -CT head: no acute changes -EKG showed NSR, no ST changes -Carotid doppler - PENDING READ -ECHO - PENDING READ -Trop - NEGATIVE x 3 -Last Echo 07/2017 showed EF 55%, mild TR/MR/AR; Last Stress test in 2017 was normal -Lipid Panel showed elevated Triglycerides @ 171 | -Orthostatics Negative per ED | Mathews Hallpike Negative per ED. -Tylenol 650mg PO Q6H prn headache -Continue Lipitor 40mg PO QPM -F/U with Neurology (Dr. Armenta) 2. Acute Bronchitis (viral vs allergic) -CXR showing no active disease -No leukocytosis, afebrile -Albuterol prn shortness of breath -Will continue to monitor 3. History of Asthma -Continue Montilukast 1 tab PO daily -Albuterol prn shortness of breath 4. History of Hypertension (Stable) -Patient on Atenolol 25mg PO BID at home -Continue home medications -Hydralazine prn -Monitor Vitals GI/DVT ppx -No GI ppx indicated at this time, low risk for stress ulcers -Lovenox 40mg SC daily Patient discussed with Attending Yue Chowdhury, PGY1 <Josh Sterling - Last Filed: 03/12/18 15:40> Objective - Vital Signs/Intake and Output Vital Signs (last 24 hours): Temp Pulse Resp BP Pulse Ox 98.3 F 62 17 118/67 94 L 03/12/18 06:00 03/12/18 14:00 03/12/18 06:00 03/12/18 09:19 03/12/18 06:00 Intake and Output: 03/12/18 03/12/18 06:59 18:59 Intake Total 660 800 Balance 660 800 - Medications Medications: Current Medications Acetaminophen (Tylenol 325mg Tab) 650 mg PO Q6H PRN PRN Reason: Headache Last Admin: 03/10/18 20:10 Dose: 650 mg Albuterol Sulfate (Albuterol 0.5% Inhal Elyssa (2.5 Mg/0.5 Ml) Ud) 2.5 mg IH [id number] PRN PRN Reason: SOB Aspirin (Aspirin Chewable) 81 mg PO DAILY [facility] Last Admin: 03/12/18 09:18 Dose: 81 mg Atenolol (Tenormin) 25 mg PO BID [facility] Last Admin: 03/12/18 09:19 Dose: 25 mg Atorvastatin Calcium (Lipitor) 40 mg PO QPM [facility] Last Admin: 03/11/18 17:25 Dose: 40 mg Diazepam (Valium) 2 mg PO Q12H PRN; Protocol PRN Reason: dizziness/vertigo Enoxaparin Sodium (Lovenox) 40 mg SC DAILY [facility] PRN Reason: Protocol Last Admin: 03/12/18 09:19 Dose: 40 mg Hydralazine HCl (Apresoline) 10 mg IVP Q6 PRN PRN Reason: Systolic Blood Pressure Montelukast Sodium (Singulair) 10 mg PO QPM [facility] Last Admin: 03/11/18 17:23 Dose: 10 mg - Labs Labs: 03/12/18 07:59 03/12/18 07:59 PT 11.2 SECONDS (9.4-12.5) 03/09/18 13:35 INR 0.98 (0.93-1.08) 03/09/18 13:35 APTT 29.1 Seconds (25.1-36.5) 03/09/18 13:35 Attending/Attestation - Attestation I have personally seen and examined this patient.: Yes I have fully participated in the care of the patient.: Yes I have reviewed all pertinent clinical information, including history, physical exam and plan: Yes Notes (Text): I have seen and examined the patient at bedside. Agree with the above note dictated by the resident. Vitals, labs and imaging reviewed personally by me. Discussed the plan in detail with the patient. Upon discharge patient will follow up with Dr Wills. Dr Josh Sterling"
--- NOTE | 2018-03-10 09:52 | CARD ---
APPROVED REPORT EKG Measurement Heart [id number] <Conclusion> Sinus rhythm with APCs No change
[2018-03-10] MEDS: Enoxaparin 40 mg Syringe SC SCH (10:11)
--- NOTE | 2018-03-10 10:11 | US ---
PROCEDURE: Bilateral carotid artery duplex ultrasound HISTORY: Carotid stenosis dizziness PHYSICIAN(S): Julian Graves MD. TECHNIQUE: Duplex sonography and color-flow Doppler were used to evaluate the carotid bifurcations and limited segments of the vertebral arteries bilaterally. The exam is somewhat limited by tortuous vessels FINDINGS: There is mild to moderate smooth heterogeneous plaque noted at the carotid bifurcations bilaterally. The peak systolic velocity in the proximal right internal carotid artery is 67 cm/sec. This corresponds to a 20 to 39% proximal right ICA stenosis. Normal systolic velocities are noted in the proximal right external carotid artery. There is antegrade flow in the large right vertebral artery. The peak systolic velocity in the proximal left internal carotid artery is 72 cm/sec. This corresponds to a 20 to 39% proximal left ICA stenosis. Normal systolic velocities are noted in the proximal left external carotid artery. There is antegrade flow in the large left vertebral artery. IMPRESSION: 1. Bilateral 20-39% proximal ICA stenoses. 2. Antegrade flow in both vertebral arteries.
--- NOTE | 2018-03-10 14:40 | CP.PCM.CON ---
<Kole Solano - Last Filed: 03/10/18 17:07> History of Present Illness - History of Present Illness History of Present Illness: Neurology Consult Note - Dr. Armenta CC: Headache and dizziness HPI: 72 cymraes speaking F with a PMHx of HTN, HLD, Lymphoma, DM2, ?alzheimers and asthma presented to [facility] for dizziness and a headache that began yesterday morning. Pt stated that the room was spinning around her and experienced transient double vision as well. Pt denied having similar episodes in the past. She admitted to a productive cough with whitish phlegm this past week and has been medicating with cough syrup. Pt also recently stopped taking her dementia medication, donepezil on account of experiencing vivid nightmares. She stopped taking her medications 2 days prior to admission. She also states that she doesnt often eat much throughout the day. She recently saw her Heme/onc Dr. Fischer approx 2 weeks ago, where she was found to be iron deficient and B12 deficient. Pt was seen adn examined at bedside today with nurse available for translations. Pt admits to a mild headache that has improved since admission. She admits to dizziness at times while ambulating to the bathroom with assistance. Pt ambulates with a cane at home. Pt denied sore throat, dysphagia, fevers, chills, chest pains, palpitations, sob, urinary symptoms, changes in bowel habits, sick contacts, recent travel. PMHx: HTN, HLD, Lymphoma, DM2, ?alzheimers and asthma PSHx: Lipoma resection, hysterectomy SHx: Denies alcohol, tobacco, drug use; lives alone, performs ADLs independently FamHx: Denied Meds: Atorvastatin 40 mg, Montelukast 10 mg, Atenolol 25 mg, Donepezil 5mg, Symbicort PRN, Albuterol PRN, Aspirin-MWF 1 tab. Allergies: Alendronate, Ciprofloxacin, Codeine, Lisinopril, Sertraline, Fosamax Review of Systems - Review of Systems Review of Systems: as per HPI otherwise negative Past Patient History - Infectious Disease Hx of Infectious Diseases: C.diff - Tetanus Immunizations Tetanus Immunization: Unknown - Past Medical History & Family History Past Medical History?: Yes - Past Social History Smoking Status: Never Smoked - CARDIAC Hx Cardiac Disorders: Yes Hx Hypercholesterolemia: Yes Hx Hypertension: Yes Other/Comment: ATHEROSCLEROTIC HEART DISEASE - PULMONARY Hx Respiratory Disorders: Yes Hx Asthma: Yes - NEUROLOGICAL Hx Neurological Disorder: Yes (headaches) Hx Alzheimer's Disease: Yes - HEENT Hx HEENT Problems: Yes Hx Cataracts: Yes (b/l [id number]) Hx Difficulty Chewing: No - RENAL Hx Chronic Kidney Disease: Yes Hx Kidney Stones: Yes - ENDOCRINE/METABOLIC Hx Endocrine Disorders: (pre diabetes no meds) - HEMATOLOGICAL/ONCOLOGICAL Hx Blood Disorders: Yes (VIT D DEF) Hx Cancer: Yes (lymphoma dx 2014) Hx Chemotherapy: Yes (last tx 02/2016) - INTEGUMENTARY Hx Dermatological Problems: Yes Other/Comment: SCARRING TO BACK EXCISION OF LIPOMA TO BACK, scar to right abd due to pt having her r hand post op lying on r abd causing skin irritation - MUSCULOSKELETAL/RHEUMATOLOGICAL Hx Falls: No - GASTROINTESTINAL Hx Gastrointestinal Disorders: Yes Hx Diverticulitis: Yes Other/Comment: GASTRITIS,DIVERTICULITIS,C DIFF 11/25/15 - GENITOURINARY/GYNECOLOGICAL Hx Genitourinary Disorders: No - PSYCHIATRIC Hx Substance Use: No - SURGICAL HISTORY Hx Amputation: Yes (right hand fingers 4 and 5 dog bite) Hx Appendectomy: Yes Hx Cholecystectomy: Yes (1997) Hx Hysterectomy: Yes (1986) Other/Comment: right 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 with skin graft due to dog bite, mass on back removed 2011 and 2013 - ANESTHESIA Hx Anesthesia: Yes Hx Anesthesia Reactions: No Hx Malignant Hyperthermia: No Meds Allergies/Adverse Reactions: Allergies Allergy/AdvReac Type Severity Reaction Status Date / Time alendronate sodium Allergy Intermediate NAUSEA/VOMT Verified 03/09/18 12:27 [From Fosamax] ING ciprofloxacin Allergy Intermediate NAUSEA/VOMI Verified 03/09/18 12:27 TING codeine Allergy Intermediate DIZZINESS Verified 03/09/18 12:27 lisinopril Allergy Unknown UNKNOWN Verified 03/09/18 12:27 clarithromycin Allergy unknown Verified 03/09/18 12:27 methimazole Allergy NAUSEA Verified 03/09/18 12:27 sertraline Allergy unknown Verified 03/09/18 12:27 - Medications Medications: Current Medications Acetaminophen (Tylenol 325mg Tab) 650 mg PO Q6H PRN PRN Reason: Headache Albuterol Sulfate (Albuterol 0.5% Inhal Elyssa (2.5 Mg/0.5 Ml) Ud) 2.5 mg IH [id number] PRN PRN Reason: SOB Atenolol (Tenormin) 25 mg PO BID [facility] Last Admin: 03/10/18 10:11 Dose: 25 mg Atorvastatin Calcium (Lipitor) 40 mg PO QPM [facility] Last Admin: 03/09/18 17:34 Dose: 40 mg Enoxaparin Sodium (Lovenox) 40 mg SC DAILY [facility] PRN Reason: Protocol Last Admin: 03/10/18 10:11 Dose: 40 mg Hydralazine HCl (Apresoline) 10 mg IVP Q6 PRN PRN Reason: Systolic Blood Pressure Meclizine HCl (Antivert) 25 mg PO BID [facility] Last Admin: 03/10/18 12:42 Dose: 25 mg Montelukast Sodium (Singulair) 10 mg PO QPM [facility] Last Admin: 03/09/18 17:36 Dose: Not Given Physical Exam - Constitutional Appears: No Acute Distress - Head Exam Head Exam: ATRAUMATIC, NORMAL INSPECTION, NORMOCEPHALIC - Eye Exam Eye Exam: EOMI, Normal appearance, PERRL Pupil Exam: NORMAL ACCOMODATION, PERRL - ENT Exam ENT Exam: Mucous Membranes Moist, Normal Exam - Neck Exam Neck exam: Positive for: Normal Inspection - Respiratory Exam Respiratory Exam: Clear to Auscultation Bilateral, NORMAL BREATHING PATTERN - Cardiovascular Exam Cardiovascular Exam: Bradycardia, +S1, +S2 - GI/Abdominal Exam GI & Abdominal Exam: Normal Bowel Sounds, Soft. absent: Tenderness - Extremities Exam Extremities exam: Positive for: normal inspection - Neurological Exam Neurological exam: Alert, CN II-XII Intact, Oriented x3, Reflexes Normal Additional comments: unsteady gait - Psychiatric Exam Psychiatric exam: Normal Affect, Normal Mood - Skin Skin Exam: Dry, Intact, Normal Color, Warm Results - Vital Signs Recent Vital Signs: Last Vital Signs Temp 97.7 F 03/10/18 08:27 Pulse 62 03/10/18 14:00 Resp 18 03/10/18 08:27 BP 145/73 03/10/18 10:11 Pulse Ox 100 03/10/18 08:27 - Labs Result Diagrams: 03/10/18 05:30 03/10/18 05:30 Labs: Laboratory Results - last 24 hr 03/09/18 03/10/18 03/10/18 19:08 05:30 05:30 WBC 5.3 RBC 4.57 Hgb 12.3 Hct 38.1 MCV 83.4 MCH 26.9 MCHC 32.3 RDW 13.9 Plt Count 150 MPV 9.8 Gran % 48.3 L Lymph % (Auto) 36.0 H Refug[place] % (Auto) 11.3 H Eos % (Auto) 3.8 Baso % (Auto) 0.6 Gran # 2.58 Lymph # (Auto) 1.9 Refugio # (Auto) 0.6 Eos # (Auto) 0.2 Baso # (Auto) 0.03 Sodium 144 Potassium 4.1 Chloride 106 Carbon Dioxide 29 Anion Gap 13 BUN 15 Creatinine 0.7 Est GFR ( Amer) > 60 Est GFR (Non-Af Amer) > 60 Random Glucose 85 Calcium 9.5 Total Bilirubin 0.7 AST 29 ALT 25 Alkaline Phosphatase 63 Troponin I < 0.01 0.02 D Total Protein 6.0 Albumin 3.6 Globulin 2.5 Albumin/Globulin Ratio 1.5 Assessment & Plan - Assessment and Plan (Free Text) Assessment: 72 cymraes speaking F with a PMHx of HTN, HLD, Lymphoma, DM2, ?alzheimers and asthma presented to [facility] for dizziness and a headache that began yesterday morning. CT head: no acute changes. EKG showed NSR, no ST changes, at times sinus bradycardic since admission. Carotid dopplers demonstrates 20-39% bilateral stenosis. Last Echo 07/2017 demonstrated EF 55%, mild TR/MR/AR; Last Stress test in 2017 was unremarkable. Lipid panel are wnl, last A1c 5.7. Orthostatics pending. Tylenol 650mg PO Q6H prn headache. Continue asa daily instead of MWF. We will add valium 2mg in place of valium. Add lipitor. We will also obtain a CTA Head and neck to assess basilar sufficiency. <Lester Armenta - Last Filed: 03/11/18 13:59> Meds - Medications Medications: Current Medications Acetaminophen (Tylenol 325mg Tab) 650 mg PO Q6H PRN PRN Reason: Headache Last Admin: 03/10/18 20:10 Dose: 650 mg Albuterol Sulfate (Albuterol 0.5% Inhal Elyssa (2.5 Mg/0.5 Ml) Ud) 2.5 mg IH [id number] PRN PRN Reason: SOB Aspirin (Aspirin Chewable) 81 mg PO DAILY [facility] Last Admin: 03/11/18 09:13 Dose: 81 mg Atenolol (Tenormin) 25 mg PO BID [facility] Last Admin: 03/11/18 09:14 Dose: 25 mg Atorvastatin Calcium (Lipitor) 40 mg PO QPM [facility] Last Admin: 03/10/18 17:21 Dose: 40 mg Enoxaparin Sodium (Lovenox) 40 mg SC DAILY [facility] PRN Reason: Protocol Last Admin: 03/11/18 09:13 Dose: 40 mg Hydralazine HCl (Apresoline) 10 mg IVP Q6 PRN PRN Reason: Systolic Blood Pressure Montelukast Sodium (Singulair) 10 mg PO QPM [facility] Last Admin: 03/10/18 17:21 Dose: 10 mg Results - Vital Signs Recent Vital Signs: Last Vital Signs Temp 97.8 F 03/11/18 08:20 Pulse 67 03/11/18 09:14 Resp 20 03/11/18 08:20 BP 149/66 03/11/18 09:14 Pulse Ox 98 03/11/18 08:20 - Labs Result Diagrams: 03/11/18 05:30 03/11/18 05:30 Labs: Laboratory Results - last 24 hr 03/09/18 03/11/18 03/11/18 19:08 05:30 05:30 WBC 4.1 L D RBC 4.69 Hgb 12.7 Hct 38.9 MCV 82.9 MCH 27.1 MCHC 32.6 RDW 14.0 Plt Count 145 MPV 9.8 Gran % 46.7 L Lymph % (Auto) 36.6 H Refug[place] % (Auto) 10.7 H Eos % (Auto) 5.3 H Baso % (Auto) 0.7 Gran # 1.93 Lymph # (Auto) 1.5 Refugio # (Auto) 0.4 Eos # (Auto) 0.2 Baso # (Auto) 0.03 Sodium 142 Potassium 4.7 Chloride 104 Carbon Dioxide 31 Anion Gap 12 BUN 20 Creatinine 0.8 Est GFR ( Amer) > 60 Est GFR (Non-Af Amer) > 60 Random Glucose 88 Hemoglobin A1c 5.6 Calcium 9.7 Total Bilirubin 0.6 AST 31 ALT 25 Alkaline Phosphatase 66 Total Protein 6.1 Albumin 3.7 Globulin 2.5 Albumin/Globulin Ratio 1.5 Attending/Attestation - Attestation I have personally seen and examined this patient.: Yes I have fully participated in the care of the patient.: Yes I have reviewed all pertinent clinical information: Yes
[2018-03-10] MEDS ORDERED: Iodixanol 320 MG/ML 100 ML BOTTLE IV ONE (19:41)
--- NOTE | 2018-03-10 21:14 | CT ---
EXAM: CT Angiography Head With Intravenous Contrast CLINICAL HISTORY: The patient age is 72 years old and is female; Screening exam; Vertebro-basilar insufficiency Facility exam id and description: Ct [facility] cta head neck bundle TECHNIQUE: Axial computed tomographic angiography images of the head with intravenous contrast using CT angiography protocol. All CT scans at this facility use one or more dose reduction techniques, viz.: automated exposure control; ma/kV adjustment per patient size (including targeted exams where dose is matched to indication; i.e. head); or iterative reconstruction technique. MIP reconstructed images were created and reviewed. Coronal and sagittal reformatted images were created and reviewed. CONTRAST: 100 mL of OMNI 350 administered intravenously. COMPARISON: CT - HEAD W/O CONTRAST 2018-03-09 13:39 FINDINGS: Right internal carotid artery: See below. Right anterior cerebral artery: No occlusion or significant stenosis. No aneurysm. Right middle cerebral artery: No occlusion or significant stenosis. No aneurysm. Right posterior cerebral artery: The right posterior cerebral artery is small in caliber, without occlusion. There is an accessory right posterior cerebral artery, with persistence of the origin. No aneurysm. Right vertebral artery: No occlusion or significant stenosis. Left internal carotid artery: Atherosclerotic changes are identified of the internal carotid arteries bilaterally, with approximately 50% stenosis of the distal left internal carotid artery. There is less than 50% stenosis of the right internal carotid artery. No aneurysm. Left anterior cerebral artery: No occlusion or significant stenosis. No aneurysm. Left middle cerebral artery: No occlusion or significant stenosis. No aneurysm. Left posterior cerebral artery: No occlusion or significant stenosis. No aneurysm. Left vertebral artery: No occlusion or significant stenosis. Basilar artery: No significant stenosis. No occlusion. No aneurysm. Sinuses: There is moderate mucosal thickening of the right maxillary sinus. IMPRESSION: 1. The right posterior cerebral artery is small in caliber, without occlusion. There is an accessory right posterior cerebral artery. 2. Atherosclerotic changes are identified of the internal carotid arteries bilaterally, with approximately 50% stenosis of the distal left internal carotid artery. There is less than 50% stenosis of the right internal carotid artery. 3. Paranasal sinus disease is noted above. EXAM: CT Angiography Neck With Intravenous Contrast EXAM DATE/TIME: 03/10/2018 3:53 PM CLINICAL HISTORY: The patient age is 72 years old and is female; Screening exam; Vertebro-basilar insufficiency Facility exam id and description: Ct [facility] cta head neck bundle TECHNIQUE: Axial computed tomographic angiography images of the neck with intravenous contrast using CT angiography protocol. All CT scans at this facility use one or more dose reduction techniques, viz.: automated exposure control; ma/kV adjustment per patient size (including targeted exams where dose is matched to indication; i.e. head); or iterative reconstruction technique. MIP reconstructed images were created and reviewed. Coronal and sagittal reformatted images were created and reviewed. CONTRAST: 100 mL of OMNI 350 administered intravenously. COMPARISON: CT - HEAD W/O CONTRAST 2018-03-09 13:39 FINDINGS: VASCULATURE: Right common carotid artery: Artifact limits evaluation of the proximal right common carotid artery. The remaining right common carotid artery is normal in caliber, without significant stenosis or occlusion. Right internal carotid artery: There is mild stenosis of the proximal right internal carotid artery. The degree of stenosis is approximately 35%. No occlusion. Right external carotid artery: No occlusion. Right vertebral artery: No occlusion or significant stenosis. Left common carotid artery: There is atherosclerosis of the distal left common carotid artery, without hemodynamically significant stenosis. No occlusion. Left internal carotid artery: There is atherosclerosis of the left carotid bifurcation. There is approximately 40% stenosis of the proximal left internal carotid artery. No occlusion. Left external carotid artery: No occlusion. Left vertebral artery: No occlusion or significant stenosis. NECK: Bones/joints: Spondylosis is visualized in multiple cervical levels. There is straightening of the lordotic curvature of the cervical spine. Lymph nodes: Small mediastinal lymph nodes are visualized, without significant lymphadenopathy. Scattered small cervical lymph nodes are identified, without significant lymphadenopathy. Hypopharynx: There is effacement of the left piriform sinus. Thyroid: Within the left thyroid lobe inferiorly, hypodense nodules are visualized, the largest measuring 1.3 x 0.7 cm. CAROTID STENOSIS REFERENCE USING NASCET CRITERIA: % ICA stenosis = (1 - narrowest ICA diameter/diameter of distal cervical ICA) x 100. Mild - <50% stenosis. Moderate - 50-69% stenosis. Severe - 70-94% stenosis. Near occlusion - 95-99% stenosis. Occluded - 100% stenosis. IMPRESSION: 1. There is mild stenosis of the proximal right internal carotid artery. The degree of stenosis is approximately 35%. 2. There is atherosclerosis of the left carotid bifurcation. There is approximately 40% stenosis of the proximal left internal carotid artery. 3. Within the left thyroid lobe inferiorly, hypodense nodules are visualized, the largest measuring 1.3 x 0.7 cm. Follow-up ultrasonography is recommended. 4. There is effacement of the left piriform sinus. 5. Incidental/non-acute findings are described above.
[2018-03-11 06:31] LABS: BASO # 0.03 K/mm3 (0.0-2.0); BASO % 0.7 % (0.0-3.0); EOS # 0.2 (0.0-0.7); EOS % 5.3 % (1.5-5.0); GRAN # 1.93 (1.4-6.5); GRAN % 46.7 % (50.0-68.0); HEMOGLOBIN 12.7 g/dL (12.0-16.0); LYMPH # 1.5 (1.2-3.4); LYMPH % 36.6 % (22.0-35.0); MEAN CELL VOLUME 82.9 fl (80.0-105.0); MEAN CORPUSCULAR HEMOGLOBIN 27.1 pg (25.0-35.0); MEAN CORPUSCULAR HGB CONC 32.6 g/dl (31.0-37.0); MEAN PLATELET VOLUME 9.8 fl (7.0-11.0); MONO # 0.4 (0.1-0.6); MONO % 10.7 % (1.0-6.0); RBC 4.69 10^6/uL (3.5-6.1); WHITE BLOOD COUNT 4.1 10^3/ul (4.5-11.0)
[2018-03-11 06:58] LABS: ALB/GLOB RATIO 1.5 (1.1-1.8); ALBUMIN 3.7 g/dL (3.0-4.8); ALT/SGPT 25 U/L (7-56); AST/SGOT 31 U/L (14-36); BLOOD UREA NITROGEN 20 mg/dL (7-21); CALCIUM 9.7 mg/dL (8.4-10.5); GFR AFRICAN-AMERICAN > 60; GFR NON-AFRICAN AMERICAN > 60
--- NOTE | 2018-03-11 08:43 | CARD ---
APPROVED REPORT EXAM: Two-dimensional and M-mode echocardiogram with Doppler and color Doppler. Other Information Quality : AverageRhythm : INDICATION Dizziness and Vertigo 2D DIMENSIONS Left Atrium (2D)4.0 (1.6-4.0cm)IVSd1.1 (0.7-1.1cm) LVDd4.9 (3.9-5.9cm)PWd1.1 (0.7-1.1cm) LVDs3.1 (2.5-4.0cm)FS (%) 36.8 % LVEF (%)66.0 (>50%) M-Mode DIMENSIONS Aortic Root3.10 (2.2-3.7cm)Aortic Cusp Exc.1.50 (1.5-2.0cm) Aortic Valve AoV Peak Zwhhkclo796.0cm/Marcelo P 1/2 [id number] Mitral Valve MV E Xwguuyin066.0cm/sMV A Wzkdigtn90.8cm/sE/A ratio1.3 TDI Lateral E' Peak V4.58cm/sMedial E' Peak V3.90cm/sE/Lateral E'25.1 E/Medial E'29.5 Pulmonary Valve PV Peak Mntbgcbx51.7cm/sPV Peak Grad.2mmHg Tricuspid Valve TR Peak Sborncmt065hw/sRAP [id number] Peak Gr.31mmHg [id number] LEFT VENTRICLE The left ventricle is normal size. There is normal left ventricular wall thickness. The left ventricular function is normal. The left ventricular ejection fraction is within the normal range. There is normal LV segmental wall motion. RIGHT VENTRICLE The right ventricle is normal size. ATRIA The left atrium size is normal. The right atrium size is normal. The interatrial septum is intact with no evidence for an atrial septal defect. AORTIC VALVE The aortic valve is normal in structure. There is mild aortic regurgitation. MITRAL VALVE The mitral valve is normal in structure. Mitral regurgitation is trace. TRICUSPID VALVE The tricuspid valve is normal in structure. There is trace tricuspid regurgitation. PULMONIC VALVE The pulmonic valve is not well visualized. There is trace pulmonic valvular regurgitation. GREAT VESSELS The aortic root is normal in size. PERICARDIAL EFFUSION There is no pericardial effusion. <Conclusion> The left ventricle is normal size. There is normal left ventricular wall thickness. The left ventricular function is normal. There is mild aortic regurgitation.
[2018-03-11] MEDS: Enoxaparin 40 mg Syringe SC SCH (09:13)
--- NOTE | 2018-03-11 15:26 | CP.PCM.PN ---
<Steve Tavera - Last Filed: 03/11/18 15:18> Subjective - Date & Time of Evaluation Date of Evaluation: 03/11/18 Time of Evaluation: 09:20 - Subjective Subjective: IM Progress Note for Hospitalist Service Patient seen and examined at bedside. No acute events overnight. Reports improvement but still some persistence of dizziness, worse with standing up. Denies nausea, emesis, chest pain, shortness of breath. Objective - Vital Signs/Intake and Output Vital Signs (last 24 hours): Temp Pulse Resp BP Pulse Ox 97.8 F 67 20 149/66 98 03/11/18 08:20 03/11/18 09:14 03/11/18 08:20 03/11/18 09:14 03/11/18 08:20 Intake and Output: 03/11/18 03/11/18 06:59 18:59 Intake Total 540 720 Balance 540 720 - Medications Medications: Current Medications Acetaminophen (Tylenol 325mg Tab) 650 mg PO Q6H PRN PRN Reason: Headache Last Admin: 03/10/18 20:10 Dose: 650 mg Albuterol Sulfate (Albuterol 0.5% Inhal Elyssa (2.5 Mg/0.5 Ml) Ud) 2.5 mg IH [id number] PRN PRN Reason: SOB Aspirin (Aspirin Chewable) 81 mg PO DAILY [facility] Last Admin: 03/11/18 09:13 Dose: 81 mg Atenolol (Tenormin) 25 mg PO BID [facility] Last Admin: 03/11/18 09:14 Dose: 25 mg Atorvastatin Calcium (Lipitor) 40 mg PO QPM [facility] Last Admin: 03/10/18 17:21 Dose: 40 mg Diazepam (Valium) 2 mg PO Q12H PRN; Protocol PRN Reason: dizziness/vertigo Enoxaparin Sodium (Lovenox) 40 mg SC DAILY [facility] PRN Reason: Protocol Last Admin: 03/11/18 09:13 Dose: 40 mg Hydralazine HCl (Apresoline) 10 mg IVP Q6 PRN PRN Reason: Systolic Blood Pressure Montelukast Sodium (Singulair) 10 mg PO QPM [facility] Last Admin: 03/10/18 17:21 Dose: 10 mg - Labs Labs: 03/11/18 05:30 03/11/18 05:30 PT 11.2 SECONDS (9.4-12.5) 03/09/18 13:35 INR 0.98 (0.93-1.08) 03/09/18 13:35 APTT 29.1 Seconds (25.1-36.5) 03/09/18 13:35 - Additional Findings Additional findings: - Constitutional Appears: Well, No Acute Distress - Head Exam Head Exam: ATRAUMATIC, NORMAL INSPECTION, NORMOCEPHALIC - Eye Exam Eye Exam: EOMI, Normal appearance Pupil Exam: NORMAL ACCOMODATION - ENT Exam ENT Exam: Mucous Membranes Moist - Respiratory Exam Respiratory Exam: Clear to Auscultation Bilateral, NORMAL BREATHING PATTERN. absent: Rales, Rhonchi, Wheezes, Respiratory Distress - Cardiovascular Exam Cardiovascular Exam: REGULAR RHYTHM, +S1, +S2. absent: Systolic Murmur - GI/Abdominal Exam GI & Abdominal Exam: Normal Bowel Sounds, Soft. absent: Guarding, Rebound, Rigid, Tenderness - Extremities Exam Extremities exam: Positive for: Right Hand missing 5th digit, right calf point tenderness (new), no pedal edema, good distal pulses (+2 dorsalis pedis b/l) - Neurological Exam Neurological exam: Alert and awake, following all commands appropriately, moving all extremities spontaneously - Psychiatric Exam Psychiatric exam: Normal Affect, Normal Mood - Skin Skin Exam: Dry, Normal Color, Warm Assessment and Plan - Assessment and Plan (Free Text) Assessment: Patient is a 72 year old female with past medical history of HTN, HLD, Asthma, lymphoma presented to [facility] for dizziness. Patient states that she took promethazine for cough prior to admit. CT head negative. Plan: 1) Dizziness likely 2/2 medication use (rule out cardioneurogenic causes) -Admit to telemetry -CT head: no acute changes -EKG showed NSR, no ST changes -Carotid doppler: Bilateral 20-39% proximal ICA stenoses, Antegrade flow in both vertebral arteries. -CTA head and neck as per neuro, notable for: right posterior cerebral artery is small in caliber without occlusion. Atherosclerotic changes of the internal carotid arteries bilaterally; approximately 50% stenosis of the distal left internal carotid artery, less than 50% stenosis of the right internal carotid artery. -Echo obtained, notable for EF 66%, normal LV size/fxn, mild AR, RVSP 41mmHg -Trop - NEGATIVE x 3 -Last Stress test in 2017 was normal -Lipid Panel notable for TG 171, continue lipitor 40mg daily -Orthostatics/Marcellus Hallpike Negative per ED, Orthostatics today notable for 143/ 67 sitting, 114/68 standing, so orthostatic positive, fall precautions and encourage increased fluid intake -Tylenol 650mg PO Q6H prn headache -F/U with Neurology (Dr. Armenta); recs valium 2mg PO q12 PRN for dizziness, clear from neuro standpoint 2) Acute Bronchitis (viral vs allergic) -CXR showing no active disease -Still no leukocytosis, remains afebrile -Albuterol prn shortness of breath -Will continue to monitor 3) History of Asthma -Continue Montilukast 1 tab PO daily -Albuterol prn shortness of breath 4) History of Hypertension (Stable) -Patient on Atenolol 25mg PO BID at home -Continue home medications -Hydralazine prn -Monitor Vitals Dispo: Currently obs, PT recs TCU but doesn't qualify so pending [facility] vs Home w/ Services FEN: Heart-healthy diet Access: Peripheral IV Consults: Neuro Ppx: low risk for stress ulcers so no GI ppx, Lovenox for DVT Pt seen, reviewed, and discussed with attending, Dr. Sterling. <Josh Sterling - Last Filed: 03/12/18 15:49> Objective - Vital Signs/Intake and Output Vital Signs (last 24 hours): Temp Pulse Resp BP Pulse Ox 98.3 F 62 17 118/67 94 L 03/12/18 06:00 03/12/18 14:00 03/12/18 06:00 03/12/18 09:19 03/12/18 06:00 Intake and Output: 03/12/18 03/12/18 06:59 18:59 Intake Total 660 800 Balance 660 800 - Medications Medications: Current Medications Acetaminophen (Tylenol 325mg Tab) 650 mg PO Q6H PRN PRN Reason: Headache Last Admin: 03/10/18 20:10 Dose: 650 mg Albuterol Sulfate (Albuterol 0.5% Inhal Elyssa (2.5 Mg/0.5 Ml) Ud) 2.5 mg IH [id number] PRN PRN Reason: SOB Aspirin (Aspirin Chewable) 81 mg PO DAILY [facility] Last Admin: 03/12/18 09:18 Dose: 81 mg Atenolol (Tenormin) 25 mg PO BID [facility] Last Admin: 03/12/18 09:19 Dose: 25 mg Atorvastatin Calcium (Lipitor) 40 mg PO QPM [facility] Last Admin: 03/11/18 17:25 Dose: 40 mg Diazepam (Valium) 2 mg PO Q12H PRN; Protocol PRN Reason: dizziness/vertigo Enoxaparin Sodium (Lovenox) 40 mg SC DAILY [facility] PRN Reason: Protocol Last Admin: 03/12/18 09:19 Dose: 40 mg Hydralazine HCl (Apresoline) 10 mg IVP Q6 PRN PRN Reason: Systolic Blood Pressure Montelukast Sodium (Singulair) 10 mg PO QPM [facility] Last Admin: 03/11/18 17:23 Dose: 10 mg - Labs Labs: 03/12/18 07:59 03/12/18 07:59 PT 11.2 SECONDS (9.4-12.5) 03/09/18 13:35 INR 0.98 (0.93-1.08) 03/09/18 13:35 APTT 29.1 Seconds (25.1-36.5) 03/09/18 13:35 Attending/Attestation - Attestation I have personally seen and examined this patient.: Yes I have fully participated in the care of the patient.: Yes I have reviewed all pertinent clinical information, including history, physical exam and plan: Yes Notes (Text): I have seen and examined the patient at bedside. Agree with the above note dictated by the resident. Vitals, labs and imaging reviewed personally by me. Discussed the plan in detail with the patient and her son. She continues to have dizziness. Discussed with neurologist. Will start valium prn and dc meclizine. Upon discharge patient will follow up with Dr Wills. Dr Josh Sterling
[2018-03-12 08:26] LABS: ALB/GLOB RATIO 1.9 (1.1-1.8); ALT/SGPT 28 U/L (7-56); AST/SGOT 36 U/L (14-36); BLOOD UREA NITROGEN 14 mg/dL (7-21); CALCIUM 9.2 mg/dL (8.4-10.5); GFR AFRICAN-AMERICAN > 60; GFR NON-AFRICAN AMERICAN > 60
[2018-03-12 08:30] LABS: BASO # 0.05 K/mm3 (0.0-2.0); EOS # 0.2 (0.0-0.7); EOS % 3.1 % (1.5-5.0); GRAN # 2.58 (1.4-6.5); GRAN % 53.3 % (50.0-68.0); LYMPH # 1.6 (1.2-3.4); LYMPH % 32.9 % (22.0-35.0); MEAN CELL VOLUME 83.4 fl (80.0-105.0); MEAN CORPUSCULAR HEMOGLOBIN 27.4 pg (25.0-35.0); MEAN CORPUSCULAR HGB CONC 32.8 g/dl (31.0-37.0); MEAN PLATELET VOLUME 10.2 fl (7.0-11.0); MONO # 0.5 (0.1-0.6); MONO % 9.7 % (1.0-6.0); RBC 4.75 10^6/uL (3.5-6.1); WHITE BLOOD COUNT 4.8 10^3/ul (4.5-11.0)
[2018-03-12 09:12] VITALS: BP 118/67; RESP 17; TEMP 98.3; O2SAT 94
[2018-03-12] MEDS: Enoxaparin 40 mg Syringe SC SCH (09:19)
[2018-03-12 15:23] VITALS: PULSE 62
--- NOTE | 2018-03-12 15:41 | CP.PCM.DIS ---
<Yue Chowdhury - Last Filed: 03/12/18 18:08> Provider - Provider Date of Admission: 03/11/18 15:28 Attending physician: Josh Sterling MD Consults: Patient is a 72 year old female with a past medical history of HTN, HLD, Lymphoma, and asthma admitted for evaluation and treatment of dizziness that started on the day of admission. CT of head on admission showed no acute changes. EKG was NSR with no ST changes. Carotid Dopplers showed Bilateral 20- 39% proximal ICA stenoses and antegrade flow in both vetebral arteries. CTA of head and neck showed the right post. cerbral artery is small in caliber without occlusion and an accessory right pos. cerebral artery; artheroslerotic changes in b/l internal carotids with apporoximately 50% stenosis of distal left internal carotid artery, and less than 50% stenosis in the right; parasinus disease was also noted. ECHO showed normal LV function with 66% EF. Lipid Panel was unremarkable. Neurology was consulted on the case and started Valium 2mg Q12H for dizziness which she will go home with. Patient has her own neurologist who she will follow up with at her already scheduled appointment. Patient is agreeable to plan and new medications. Patient seen and discussed with Attending Yue Chowdhury PGY-1 Time Spent in preparation of Discharge (in minutes): 45 Hospital Course - Lab Results Lab Results: Most Recent Lab Values WBC 4.8 10^3/ul (4.5-11.0) 03/12/18 07:59 RBC 4.75 10^6/uL (3.5-6.1) 03/12/18 07:59 Hgb 13.0 g/dL (12.0-16.0) 03/12/18 07:59 Hct 39.6 % (36.0-48.0) 03/12/18 07:59 MCV 83.4 fl (80.0-105.0) 03/12/18 07:59 MCH 27.4 pg (25.0-35.0) 03/12/18 07:59 MCHC 32.8 g/dl (31.0-37.0) 03/12/18 07:59 RDW 14.0 % (11.5-14.5) 03/12/18 07:59 Plt Count 149 10^3/uL (120.0-450.0) 03/12/18 07:59 MPV 10.2 fl (7.0-11.0) 03/12/18 07:59 Gran % 53.3 % (50.0-68.0) 03/12/18 07:59 Lymph % (Auto) 32.9 % (22.0-35.0) 03/12/18 07:59 Ada % (Auto) 9.7 % (1.0-6.0) H 03/12/18 07:59 Eos % (Auto) 3.1 % (1.5-5.0) 03/12/18 07:59 Baso % (Auto) 1.0 % (0.0-3.0) 03/12/18 07:59 Gran # 2.58 (1.4-6.5) 03/12/18 07:59 Lymph # (Auto) 1.6 (1.2-3.4) 03/12/18 07:59 Ada # (Auto) 0.5 (0.1-0.6) 03/12/18 07:59 Eos # (Auto) 0.2 (0.0-0.7) 03/12/18 07:59 Baso # (Auto) 0.05 K/mm3 (0.0-2.0) 03/12/18 07:59 PT 11.2 SECONDS (9.4-12.5) 03/09/18 13:35 INR 0.98 (0.93-1.08) 03/09/18 13:35 APTT 29.1 Seconds (25.1-36.5) 03/09/18 13:35 Sodium 142 mmol/L (132-148) 03/12/18 07:59 Potassium 4.5 mmol/L (3.6-5.0) 03/12/18 07:59 Chloride 104 mmol/L (98-107) 03/12/18 07:59 Carbon Dioxide 30 mmol/L (21-33) 03/12/18 07:59 Anion Gap 13 (10-20) 03/12/18 07:59 BUN 14 mg/dL (7-21) 03/12/18 07:59 Creatinine 0.7 mg/dl (0.7-1.2) 03/12/18 07:59 Est GFR ( Amer) > 60 03/12/18 07:59 Est GFR (Non-Af Amer) > 60 03/12/18 07:59 POC Glucose (mg/dL) 90 mg/dL (65-110) 03/09/18 12:47 Random Glucose 85 mg/dL (70-110) 03/12/18 07:59 Hemoglobin A1c 5.6 % (4.2-6.5) 03/09/18 19:08 Calcium 9.2 mg/dL (8.4-10.5) 03/12/18 07:59 Total Bilirubin 0.6 mg/dL (0.2-1.3) 03/12/18 07:59 AST 36 U/L (14-36) 03/12/18 07:59 ALT 28 U/L (7-56) 03/12/18 07:59 Alkaline Phosphatase 62 U/L (38-126) 03/12/18 07:59 Lactate Dehydrogenase 563 U/L (333-699) 03/09/18 13:35 Total Creatine Kinase 59 U/L (35-230) 03/09/18 13:35 Troponin I 0.02 ng/mL D 03/10/18 05:30 Total Protein 6.2 g/dL (5.8-8.3) 03/12/18 07:59 Albumin 4.0 g/dL (3.0-4.8) 03/12/18 07:59 Globulin 2.1 gm/dL 03/12/18 07:59 Albumin/Globulin Ratio 1.9 (1.1-1.8) H 03/12/18 07:59 Triglycerides 171 mg/dL (35-160) H 03/09/18 13:35 Cholesterol 133 mg/dL (130-200) 03/09/18 13:35 LDL Cholesterol Direct 66 mg/dL (0-129) 03/09/18 13:35 HDL Cholesterol 39 mg/dL (29-60) 03/09/18 13:35 Free T4 0.85 ng/dL (0.78-2.19) 03/09/18 13:35 TSH 3rd Generation 0.85 mIU/mL (0.46-4.68) 03/09/18 13:35 Urine Color Yellow (YELLOW) 03/09/18 14:30 Urine Appearance Clear (CLEAR) 03/09/18 14:30 Urine pH 6.5 (4.7-8.0) 03/09/18 14:30 Ur Specific Crockett <= 1.005 (1.005-1.035) 03/09/18 14:30 Urine Protein Negative mg/dL (<30 mg/dL) 03/09/18 14:30 Urine Glucose (UA) Negative mg/dL (NEGATIVE) 03/09/18 14:30 Urine Ketones Negative mg/dL (NEGATIVE) 03/09/18 14:30 Urine Blood Negative (NEGATIVE) 03/09/18 14:30 Urine Nitrate Negative (NEGATIVE) 03/09/18 14:30 Urine Bilirubin Negative (NEGATIVE) 03/09/18 14:30 Urine Urobilinogen 0.2 E.U./dL (<1 E.U./dL) 03/09/18 14:30 Ur Leukocyte Esterase Negative Lisa/uL (NEGATIVE) 03/09/18 14:30 Influenza Typ A,B (EIA) Negative for flu a/b (NEGATIVE) 03/09/18 13:35 Discharge Exam - Head Exam Head Exam: ATRAUMATIC, NORMAL INSPECTION, NORMOCEPHALIC - Additional Findings Additional findings: - Constitutional Appears: Well, No Acute Distress - Head Exam Head Exam: ATRAUMATIC, NORMAL INSPECTION, NORMOCEPHALIC - Eye Exam Eye Exam: EOMI, Normal appearance Pupil Exam: NORMAL ACCOMODATION - ENT Exam ENT Exam: Mucous Membranes Moist - Respiratory Exam Respiratory Exam: Clear to Auscultation Bilateral, NORMAL BREATHING PATTERN. absent: Rales, Rhonchi, Wheezes, Respiratory Distress - Cardiovascular Exam Cardiovascular Exam: REGULAR RHYTHM, +S1, +S2. absent: Systolic Murmur - GI/Abdominal Exam GI & Abdominal Exam: Normal Bowel Sounds, Soft. absent: Guarding, Rebound, Rigid, Tenderness - Extremities Exam Extremities exam: Positive for: Right Hand missing 5th digit, right calf point tenderness (new), no pedal edema, good distal pulses (+2 dorsalis pedis b/l) - Neurological Exam Neurological exam: Alert and awake, following all commands appropriately, moving all extremities spontaneously - Psychiatric Exam Psychiatric exam: Normal Affect, Normal Mood - Skin Skin Exam: Dry, Normal Color, Warm Discharge Plan - Discharge Medications Prescriptions: diaZEpam [Valium] 2 mg PO Q12H PRN #10 tab PRN Reason: dizziness/vertigo - Follow Up Plan Condition: FAIR Disposition: HOME/ ROUTINE Instructions: Transient Ischemic Attack, Vertigo (a Type of Dizziness) (DC) Additional Instructions: Please follow up with your primary medical physician in 1 week Please follow up with your neurologist at your scheduled appointment Please take new medication as instructed. Por favor lucila un seguimiento con bird mdico primario en 1 semana Por favor lucila un seguimiento con bird neurlogo en bird pankaj programada Por favor, tome nuevos medicamentos segn las instrucciones <Josh Sterling - Last Filed: 03/13/18 14:11> Provider - Provider Date of Admission: 03/11/18 15:28 Attending physician: Josh Sterling MD Hospital Course - Lab Results Lab Results: Most Recent Lab Values WBC 4.8 10^3/ul (4.5-11.0) 03/12/18 07:59 RBC 4.75 10^6/uL (3.5-6.1) 03/12/18 07:59 Hgb 13.0 g/dL (12.0-16.0) 03/12/18 07:59 Hct 39.6 % (36.0-48.0) 03/12/18 07:59 MCV 83.4 fl (80.0-105.0) 03/12/18 07:59 MCH 27.4 pg (25.0-35.0) 03/12/18 07:59 MCHC 32.8 g/dl (31.0-37.0) 03/12/18 07:59 RDW 14.0 % (11.5-14.5) 03/12/18 07:59 Plt Count 149 10^3/uL (120.0-450.0) 03/12/18 07:59 MPV 10.2 fl (7.0-11.0) 03/12/18 07:59 Gran % 53.3 % (50.0-68.0) 03/12/18 07:59 Lymph % (Auto) 32.9 % (22.0-35.0) 03/12/18 07:59 Ada % (Auto) 9.7 % (1.0-6.0) H 03/12/18 07:59 Eos % (Auto) 3.1 % (1.5-5.0) 03/12/18 07:59 Baso % (Auto) 1.0 % (0.0-3.0) 03/12/18 07:59 Gran # 2.58 (1.4-6.5) 03/12/18 07:59 Lymph # (Auto) 1.6 (1.2-3.4) 03/12/18 07:59 Ada # (Auto) 0.5 (0.1-0.6) 03/12/18 07:59 Eos # (Auto) 0.2 (0.0-0.7) 03/12/18 07:59 Baso # (Auto) 0.05 K/mm3 (0.0-2.0) 03/12/18 07:59 PT 11.2 SECONDS (9.4-12.5) 03/09/18 13:35 INR 0.98 (0.93-1.08) 03/09/18 13:35 APTT 29.1 Seconds (25.1-36.5) 03/09/18 13:35 Sodium 142 mmol/L (132-148) 03/12/18 07:59 Potassium 4.5 mmol/L (3.6-5.0) 03/12/18 07:59 Chloride 104 mmol/L (98-107) 03/12/18 07:59 Carbon Dioxide 30 mmol/L (21-33) 03/12/18 07:59 Anion Gap 13 (10-20) 03/12/18 07:59 BUN 14 mg/dL (7-21) 03/12/18 07:59 Creatinine 0.7 mg/dl (0.7-1.2) 03/12/18 07:59 Est GFR ( Amer) > 60 03/12/18 07:59 Est GFR (Non-Af Amer) > 60 03/12/18 07:59 POC Glucose (mg/dL) 90 mg/dL (65-110) 03/09/18 12:47 Random Glucose 85 mg/dL (70-110) 03/12/18 07:59 Hemoglobin A1c 5.6 % (4.2-6.5) 03/09/18 19:08 Calcium 9.2 mg/dL (8.4-10.5) 03/12/18 07:59 Total Bilirubin 0.6 mg/dL (0.2-1.3) 03/12/18 07:59 AST 36 U/L (14-36) 03/12/18 07:59 ALT 28 U/L (7-56) 03/12/18 07:59 Alkaline Phosphatase 62 U/L (38-126) 03/12/18 07:59 Lactate Dehydrogenase 563 U/L (333-699) 03/09/18 13:35 Total Creatine Kinase 59 U/L (35-230) 03/09/18 13:35 Troponin I 0.02 ng/mL D 03/10/18 05:30 Total Protein 6.2 g/dL (5.8-8.3) 03/12/18 07:59 Albumin 4.0 g/dL (3.0-4.8) 03/12/18 07:59 Globulin 2.1 gm/dL 03/12/18 07:59 Albumin/Globulin Ratio 1.9 (1.1-1.8) H 03/12/18 07:59 Triglycerides 171 mg/dL (35-160) H 03/09/18 13:35 Cholesterol 133 mg/dL (130-200) 03/09/18 13:35 LDL Cholesterol Direct 66 mg/dL (0-129) 03/09/18 13:35 HDL Cholesterol 39 mg/dL (29-60) 03/09/18 13:35 Free T4 0.85 ng/dL (0.78-2.19) 03/09/18 13:35 TSH 3rd Generation 0.85 mIU/mL (0.46-4.68) 03/09/18 13:35 Urine Color Yellow (YELLOW) 03/09/18 14:30 Urine Appearance Clear (CLEAR) 03/09/18 14:30 Urine pH 6.5 (4.7-8.0) 03/09/18 14:30 Ur Specific Crockett <= 1.005 (1.005-1.035) 03/09/18 14:30 Urine Protein Negative mg/dL (<30 mg/dL) 03/09/18 14:30 Urine Glucose (UA) Negative mg/dL (NEGATIVE) 03/09/18 14:30 Urine Ketones Negative mg/dL (NEGATIVE) 03/09/18 14:30 Urine Blood Negative (NEGATIVE) 03/09/18 14:30 Urine Nitrate Negative (NEGATIVE) 03/09/18 14:30 Urine Bilirubin Negative (NEGATIVE) 03/09/18 14:30 Urine Urobilinogen 0.2 E.U./dL (<1 E.U./dL) 03/09/18 14:30 Ur Leukocyte Esterase Negative Lisa/uL (NEGATIVE) 03/09/18 14:30 Influenza Typ A,B (EIA) Negative for flu a/b (NEGATIVE) 03/09/18 13:35 Attending/Attestation - Attestation I have personally seen and examined this patient.: Yes I have fully participated in the care of the patient.: Yes I have reviewed all pertinent clinical information, including history, physical exam and plan: Yes Notes (Text): I have seen and examined the patient at bedside. Agree with the above note dictated by the resident. Vitals, labs and imaging reviewed personally by me. Discussed the plan in detail with the patient. Her dizziness has improved today and she wants to go home. Patient was able to walk without any problem. Upon discharge patient will follow up with Dr Wills. Dr Josh Sterling
== END 2018-03-12 17:21 | disposition home or self-care (01) | DRG 149 ==
LOC: ED 11:59 → ERH 15:26 → 3RNO 16:47 → OBSVTOIN 03-11 15:28
PROVIDERS: ADMIT Hospitalist; ATTEND Hospitalist
DX: R42 Dizziness and giddiness (principal); C85.90 Non-Hodgkin lymphoma, unspecified, unspecified site; I47.2 Ventricular tachycardia; I65.23 Occlusion and stenosis of bilateral carotid arteries; E11.22 Type 2 diabetes mellitus with diabetic chronic kidney disease; E53.8 Deficiency of other specified B group vitamins; E61.1 Iron deficiency; E78.00 Pure hypercholesterolemia, unspecified; E78.5 Hyperlipidemia, unspecified; G30.9 Alzheimer's disease, unspecified; F02.80 Dementia in other diseases classified elsewhere, unspecified severity, without behavioral disturbance, psychotic disturbance, mood disturbance, and anxiety; I12.9 Hypertensive chronic kidney disease with stage 1 through stage 4 chronic kidney disease, or unspecified chronic kidney disease; I25.10 Atherosclerotic heart disease of native coronary artery without angina pectoris; J45.909 Unspecified asthma, uncomplicated; N18.9 Chronic kidney disease, unspecified; Z79.82 Long term (current) use of aspirin; Z87.442 Personal history of urinary calculi; Z90.49 Acquired absence of other specified parts of digestive tract; Z90.710 Acquired absence of both cervix and uterus; Z98.49 Cataract extraction status, unspecified eye; Z89.021 Acquired absence of right finger(s); Z88.1 Allergy status to other antibiotic agents; Z88.5 Allergy status to narcotic agent; Z88.8 Allergy status to other drugs, medicaments and biological substances

== ENCOUNTER 2018-04-01 09:56 | Inpatient (IN) | payer MEDICARE, MEDICAID ==
[2018-04-01 10:09] VITALS: BMI 24.3
--- NOTE | 2018-04-01 10:22 | ED PDOC ---
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 Patient is primarily Polish speaking, history translated through scribe. Patient notes pain is exacerbated with movement and received at rest. She reports 1 episode of diarrhea approximately 03:30 this morning following 3 bloody bowel movements. Home visiting nurse contacted PMD, who instructed patient to come in for further evaluation. Patient notes mild nausea but denies any fever, chills, vomiting, chest pain, shortness of breath, cough, headache, dizziness or any other complaints. PMD: Dr. Wills Time/Duration: Other (this morning (approx. 03:30)) Symptom Course: Unchanged Quality: Stabbing Context: Home Past Medical History - Provider Review Nursing Documentation Reviewed: Yes - Infectious Disease Hx of Infectious Diseases: C.diff - Tetanus Immunization Tetanus Immunization: Unknown - Cardiac Hx Cardiac Disorders: Yes Hx Hypertension: Yes - Pulmonary Hx Respiratory Disorders: Yes Hx Asthma: Yes - Neurological Hx Neurological Disorder: Yes (headaches) - HEENT Hx Cataracts: Yes (b/l [id number]) - Renal Hx Renal Disorder: Yes Hx Kidney Stones: Yes - Endocrine/Metabolic Hx Endocrine Disorders: (pre diabetes no meds) - Hematological/Oncological Hx Blood Disorders: Yes (VIT D DEF) Hx Cancer: Yes (lymphoma dx 2014) Hx Chemotherapy: Yes (last tx 02/2016) - Integumentary Other/Comment: SCARRING TO BACK EXCISION OF LIPOMA TO BACK, scar to right abd due to pt having her r hand post op lying on r abd causing skin irritation - Musculoskeletal/Rheumatological Hx Arthritis: Yes (hands) - Gastrointestinal Other/Comment: GASTRITIS,DIVERTICULITIS,C DIFF 11/25/15 - Genitourinary/Gynecological Hx Genitourinary Disorders: No - Psychiatric Hx Psychophysiologic Disorder: No Hx Emotional Abuse: No Hx Physical Abuse: No Hx Substance Use: No - Past Surgical History Past Surgical History: Non-Contributing - Surgical History Hx Amputation: Yes (right hand fingers 4 and 5 dog bite) Other/Comment: right 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 with skin graft due to dog bite, mass on back removed 2011 and 2013 - Anesthesia Hx Anesthesia: Yes Hx Anesthesia Reactions: No Hx Malignant Hyperthermia: No - Suicidal Assessment Feels Threatened In Home Enviroment: No Family/Social History - Physician Review Nursing Documentation Reviewed: Yes Family/Social History: No Known Family HX Smoking Status: Never Smoked Hx Alcohol Use: Yes Frequency of alcohol use: Socially Hx Substance Use: No Allergies/Home Meds Allergies/Adverse Reactions: Allergies alendronate sodium [From Fosamax] Allergy (Intermediate, Verified 04/01/18 10:08 ) NAUSEA/VOMTING ciprofloxacin Allergy (Intermediate, Verified 04/01/18 10:08) NAUSEA/VOMITING codeine Allergy (Intermediate, Verified 04/01/18 10:08) DIZZINESS lisinopril Allergy (Unknown, Verified 04/01/18 10:08) UNKNOWN clarithromycin Allergy (Verified 04/01/18 10:08) unknown methimazole Allergy (Verified 04/01/18 10:08) NAUSEA sertraline Allergy (Verified 04/01/18 10:08) unknown Home Medications: Home Meds Medication Instructions Recorded Confirmed Atorvastatin Calcium [Lipitor] 40 mg PO QPM 03/28/12 04/01/18 Montelukast [Singulair] 10 mg PO QPM 03/28/12 04/01/18 Calcium Carb, Citrate/Vit D3 1 each PO DAILY 06/05/16 04/01/18 [Calcium + D3 ER Tablet] Aspirin [Aspirin Chewable] 81 mg PO MWF 01/18/17 04/01/18 Atenolol [Tenormin] 50 mg PO DAILY 01/18/17 04/01/18 Polyethylene Glycol 3350 [Miralax] 17 gm PO BID 01/18/17 04/01/18 Albuterol Sulfate [Ventolin Hfa] 1 puff IH PRN PRN 04/01/18 04/01/18 Fluticasone Propionate [Flonase 9.9 ml NS BID 04/01/18 04/01/18 Allergy Relief] Tiotropium [Spiriva] 18 mcg IH DAILY 04/01/18 04/01/18 Review of Systems - Review of Systems Constitutional: absent: Fatigue, Fevers, Night Sweats ENT: absent: Hearing Changes Respiratory: absent: SOB, Cough Cardiovascular: absent: Chest Pain Gastrointestinal: Abdominal Pain (Right lower abdomen), Diarrhea (1 episode), Nausea, Hematochezia. absent: Vomiting Genitourinary Female: absent: Dysuria, Frequency Musculoskeletal: absent: Back Pain Neurological: absent: Headache, Dizziness, Focal Weakness Hemo/Lymphatic: absent: Easy Bleeding Physical Exam - Physical Exam Narrative Physical Exam (Text): Head: Atraumatic. Normocephalic. Eyes: PERRL. EOMI. Conjunctivae are not pale. ENT: Mucous membranes are moist and intact. Oropharynx is clear and symmetric. Neck: Supple. Full ROM. No JVD. No lymphadenopathy. Cardiovascular: Regular rate. Regular rhythm. No murmurs, rubs, or gallops. Distal pulses are 2+ and symmetric. Pulmonary/Chest: No evidence of respiratory distress. Clear to auscultation bilaterally. No wheezing, rales or rhonchi. Abdominal: Soft and non-distended. Moderate to severe right lower quadrant tenderness with palpation. No rebound, guarding, or rigidity. No organomegaly. Good bowel sounds. No inguinal masses palpated. Back: No CVA tenderness. Extremities: No edema. No cyanosis. No clubbing. Full range of motion in all extremities. No calf tenderness. No pain with straight leg testing or ROM of hip and knee. Skin: Skin is warm and dry. No petechiae. No purpura. Neurological: Alert, awake, and oriented. Normal speech. No facial droop. Motor and sensory exam intact. Psychiatric: Good eye contact. Normal interaction, affect, and behavior. Vital Signs Reviewed: Yes Vital Signs Temp Pulse Resp BP Pulse Ox 04/01/18 18:31 98.4 F 63 18 133/66 98 04/01/18 17:02 98.7 F 63 19 133/66 04/01/18 15:16 68 18 148/69 97 04/01/18 13:03 70 18 152/72 H 97 04/01/18 12:24 75 18 155/65 H 95 04/01/18 11:18 79 18 158/69 H 95 04/01/18 10:07 98.8 F 84 18 160/72 H 95 Temperature: Afebrile Blood Pressure: Hypertensive Pulse: Regular Respiratory Rate: Normal Appearance: Positive for: Well-Appearing, Non-Toxic, Comfortable Pain Distress: Moderate Mental Status: Positive for: Alert and Oriented X 3 Medical Decision Making ED Course and Treatment: 04/01/18 10:16 Impression: A 72 year old female with moderate to severe right lower abdominal pain. Patient notes bloody bowel movements. Plan is to obtain labs and abdomen CT. Differential Diagnosis included but are not limited to: Diverticulitis vs. Colitis vs. Hernia Plan: -- Abdomen and pelvis CT -- Chest xray -- EKG -- Labs -- Urinalysis -- Reassess and disposition Progress Notes: Patient is afebrile, cv stable, although moderate pain on exam in lower quadrant. She has hx of appendectomy and cholecystectomy. Due to severity of pain on exam, ct ordered. Report Date : 04/01/2018 11:33:50 PROCEDURE: CHEST RADIOGRAPH, 1 VIEW Dictator : Winston Mcguire MD IMPRESSION: No active disease. No acute/significant interval changes. Report Date : 04/01/2018 13:14:46 PROCEDURE: CT Abdomen and Pelvis without intravenous contrast Dictator : Marvin Field MD IMPRESSION: There is a focal area of mural thickening involving the distal transverse colon hepatic flexure and proximal descending colon. Minimal inflammatory changes are seen in the adjacent fat planes. This is most consistent with colitis. There is diverticulosis of the sigmoid colon with mural thickening. Given CT findings and pain on exam, will admit for iv antibiotics, serial exams. Case d/w hospitalist accepts admission for patient's PMD. Treatment plan reviewed with patient and translated by family. - Lab Interpretations Lab Results: 04/01/18 10:50 04/01/18 10:50 Lab Results 04/01/18 10:50: Sodium 143, Chloride 107, Potassium 4.5, Carbon Dioxide 25, Anion Gap 16, BUN 19, Creatinine 0.7, Est GFR ( Amer) > 60, Est GFR (Non- Af Amer) > 60, Random Glucose 105, Calcium 9.5, Total Bilirubin 0.7, AST 31, ALT 33, Alkaline Phosphatase 69, Total Protein 6.4, Albumin 4.2, Globulin 2.2, Albumin/Globulin Ratio 1.9 H 04/01/18 10:50: pO2 34, VBG pH 7.35, VBG pCO2 48.0, VBG HCO3 26.5, VBG Total CO2 28.0, VBG O2 Sat (Calc) 65.0, VBG Base Excess 0.3, VBG Potassium 4.4, Sodium 142.0, Chloride 107.0, Glucose 110 H, Lactate 1.2, FiO2 21.0, Venous Blood Potassium 4.4 04/01/18 10:50: Urine Color Yellow, Urine Appearance Clear, Urine pH 6.0, Ur Specific Vernon >= 1.030, Urine Protein Trace H, Urine Glucose (UA) Negative, Urine Ketones Negative, Urine Blood Negative, Urine Nitrate Negative, Urine Bilirubin Negative, Urine Urobilinogen 0.2, Ur Leukocyte Esterase Negative, Urine RBC 0 - 2, Urine WBC 1 - 3, Ur Epithelial Cells 3 - 4, Urine Bacteria Small, Fine Granular Casts 0 - 2, Coarse Granular Casts Trace H, Urine Other Fiber 04/01/18 10:50: PT 11.1, INR 0.97, APTT 27.8 04/01/18 10:50: WBC 8.1 D, RBC 4.52, Hgb 12.5, Hct 37.4, MCV 82.7, MCH 27.7, MCHC 33.4, RDW 13.9, Plt Count 195, MPV 9.4, Gran % 61.9, Lymph % (Auto) 27.7, Mcpherson % (Auto) 7.0 H, Eos % (Auto) 2.7, Baso % (Auto) 0.7, Gran # 4.98, Lymph # ( Auto) 2.2, Mcpherson # (Auto) 0.6, Eos # (Auto) 0.2, Baso # (Auto) 0.06 I have reviewed the lab results: Yes - RAD Interpretation Radiology Orders: 04/01/18 10:23 ABD & PELVIS PO CONTRAST ONLY [CT] Stat 04/01/18 10:24 CHEST ONE VIEW [RAD] Stat - EKG Interpretation EKG Interpretation (Text): EKG at 11:11 normal sinus rhythm rate of 71 with sinus arrhythmia Interpreted by ED Physician: Yes Type: 12 lead EKG - Medication Orders Current Medication Orders: Albuterol/Ipratropium (Duoneb 3 Mg/0.5 Mg (3 Ml) Ud) 3 ml IH Q2H PRN PRN Reason: Shortness of Breath Atenolol (Tenormin) 50 mg PO DAILY [facility] Atorvastatin Calcium (Lipitor) 40 mg PO QPM [facility] Last Admin: 04/01/18 18:00 Dose: 40 mg Metronidazole (Flagyl) 500 mg in 100 mls @ 100 mls/hr IVPB Q8 [facility] PRN Reason: Protocol Ceftriaxone Sodium (Rocephin 1 Gram Ivpb) 1 gm in 100 mls @ 100 mls/hr IVPB DAILY [facility] PRN Reason: Protocol Montelukast Sodium (Singulair) 10 mg PO QPM [facility] Last Admin: 04/01/18 18:00 Dose: 10 mg Non-Formulary Medication (Calcium Carb, Citrate/Vit D3 [Calcium + D3 Er Tablet] ) 1 each PO DAILY [facility] Pantoprazole Sodium (Protonix Inj) 40 mg IVP DAILY [facility] Last Admin: 04/01/18 16:26 Dose: 40 mg IVP Administration Document 04/01/18 16:26 SS (Rec: 04/01/18 16:28 [id number]) Charges for Administration # of IVP Administrations 1 Discontinued Medications Ceftriaxone Sodium (Rocephin 1 Gram Ivpb) 1 gm in 100 mls @ 200 mls/hr IVPB ONCE STA PRN Reason: Protocol Stop: 04/01/18 14:01 Last Admin: 04/01/18 14:26 Dose: 200 mls/hr eMAR Start Stop Document 04/01/18 14:26 SS (Rec: 04/01/18 14:28 SS [id number]) Intravenous Solution Start Date 04/01/18 Start Time 14:28 End Date 04/01/18 End time 14:58 Total Infusion Time 30 Metronidazole (Flagyl) 500 mg in 100 mls @ 100 mls/hr IVPB STAT STA PRN Reason: Protocol Stop: 04/01/18 14:32 Last Admin: 04/01/18 16:28 Dose: 100 mls/hr eMAR Start Stop Document 04/01/18 16:28 SS (Rec: 04/01/18 16:29 SS [id number]) Intravenous Solution Start Date 04/01/18 Start Time 16:28 End Date 04/01/18 End time 17:28 Total Infusion Time 60 - Scribe Statement The provider has reviewed the documentation as recorded by the Scribмарина Gilliland Provider Scribe Attestation: All medical record entries made by the Scribe were at my direction and personally dictated by me. I have reviewed the chart and agree that the record accurately reflects my personal performance of the history, physical exam, medical decision making, and the department course for this patient. I have also personally directed, reviewed, and agree with the discharge instructions and disposition. Disposition/Present on Arrival - Present on Arrival Any Indicators Present on Arrival: No History of DVT/PE: No History of Uncontrolled Diabetes: No Urinary Catheter: No History of Decub. Ulcer: No History Surgical Site Infection Following: None - Disposition Have Diagnosis and Disposition been Completed?: Yes Diagnosis: Abdominal pain, Colitis Disposition: HOSPITALIZED Disposition Time: 13:30 Patient Plan: Admission Condition: FAIR
[2018-04-01] MEDS ORDERED: Iohexol 240 (50 ml) ONE (10:27)
[2018-04-01 10:54] LABS: VENOUS BLOOD GAS BASE EXCESS 0.3 mmol/L (0.0-2.0); VENOUS BLOOD GAS PO2 34 mm/Hg (30-55); VENOUS BLOOD PH 7.35 (7.32-7.43)
[2018-04-01 10:56] LABS: BASO # 0.06 K/mm3 (0.0-2.0); BASO % 0.7 % (0.0-3.0); EOS # 0.2 (0.0-0.7); EOS % 2.7 % (1.5-5.0); GRAN # 4.98 (1.4-6.5); GRAN % 61.9 % (50.0-68.0); HEMOGLOBIN 12.5 g/dL (12.0-16.0); LYMPH # 2.2 (1.2-3.4); LYMPH % 27.7 % (22.0-35.0); MEAN CELL VOLUME 82.7 fl (80.0-105.0); MEAN CORPUSCULAR HEMOGLOBIN 27.7 pg (25.0-35.0); MEAN CORPUSCULAR HGB CONC 33.4 g/dl (31.0-37.0); MEAN PLATELET VOLUME 9.4 fl (7.0-11.0); MONO # 0.6 (0.1-0.6); RBC 4.52 10^6/uL (3.5-6.1); RED CELL DISTRIBUTION WIDTH 13.9 % (11.5-14.5); URINE BILIRUBIN NEGATIVE (NEGATIVE); URINE BLOOD NEGATIVE (NEGATIVE); URINE GLUCOSE (UA) NEGATIVE (NEGATIVE); URINE LEUKOCYTE ESTERASE NEGATIVE Leu/uL (NEGATIVE); URINE PROTEIN TRACE mg/dL (<30 mg/dL); URINE UROBILINOGEN 0.2 E.U./dL (<1 E.U./dL); WHITE BLOOD COUNT 8.1 10^3/ul (4.5-11.0)
[2018-04-01 10:59] LABS: URINE APPEARANCE CLEAR (CLEAR); URINE COLOR YELLOW (YELLOW)
[2018-04-01 11:07] LABS: ALB/GLOB RATIO 1.9 (1.1-1.8); ALBUMIN 4.2 g/dL (3.0-4.8); ALT/SGPT 33 U/L (7-56); AST/SGOT 31 U/L (14-36); BLOOD UREA NITROGEN 19 mg/dL (7-21); CALCIUM 9.5 mg/dL (8.4-10.5); GFR AFRICAN-AMERICAN > 60; GFR NON-AFRICAN AMERICAN > 60
[2018-04-01 11:21] LABS: INR 0.97 (0.93-1.08); PARTIAL THROMBOPLASTIN TIME 27.8 Seconds (25.1-36.5); PROTHROMBIN TIME 11.1 SECONDS (9.4-12.5)
[2018-04-01 11:33] LABS: URINE RBC 0 - 2 /hpf (0-2)
[2018-04-01 11:34] LABS: URINE BACTERIA SMALL (NEG)
[2018-04-01 11:35] LABS: URINE FINE GRANULAR CAST 0 - 2 /hpf (0-2)
--- NOTE | 2018-04-01 11:35 | RAD ---
PROCEDURE: CHEST RADIOGRAPH, 1 VIEW HISTORY: abdominal pain COMPARISON: 03/09/2018 FINDINGS: LUNGS: Clear. PLEURA: No pneumothorax or pleural fluid seen. CARDIOVASCULAR: No radiographic findings to suggest acute or significant cardiovascular disease OSSEOUS STRUCTURES: No significant abnormalities. VISUALIZED UPPER ABDOMEN: Normal. OTHER FINDINGS: None. IMPRESSION: No active disease. No acute/significant interval changes.
[2018-04-01 11:36] LABS: URINE COARSE GRANULAR CAST TRACE /hpf (0-2)
--- NOTE | 2018-04-01 13:16 | CT ---
PROCEDURE: CT Abdomen and Pelvis without intravenous contrast HISTORY: right lower abdominal pain COMPARISON: CT 08/16/2017 TECHNIQUE: Without contrast.. Contrast Dose: Radiation dose: Total exam DLP = Total exam DLP = 445 mGy-cm. This CT exam was performed using one or more of the following dose reduction techniques: Automated exposure control, adjustment of the mA and/or kV according to patient size, and/or use of iterative reconstruction technique. FINDINGS: LOWER THORAX: Unremarkable. LIVER: Unremarkable. No gross lesion or ductal dilatation. GALLBLADDER AND BILE DUCTS: Gallbladder removed PANCREAS: Unremarkable. No gross lesion or ductal dilatation. SPLEEN: Unremarkable. ADRENALS: Unremarkable. No mass. KIDNEYS AND URETERS: Unremarkable. No hydronephrosis. No solid mass. VASCULATURE: Unremarkable. No aortic aneurysm. BOWEL: There is a focal area of mural thickening involving the distal transverse colon hepatic flexure and proximal descending colon. Minimal inflammatory changes are seen in the adjacent fat planes. This is most consistent with colitis. There is diverticulosis of the sigmoid colon with mural thickening. APPENDIX: Unremarkable. Normal appendix. PERITONEUM: Unremarkable. No free fluid. No free air. LYMPH NODES: Unremarkable. No enlarged lymph nodes. BLADDER: Unremarkable. REPRODUCTIVE: Unremarkable. BONES: No acute fracture. OTHER FINDINGS: None. IMPRESSION: There is a focal area of mural thickening involving the distal transverse colon hepatic flexure and proximal descending colon. Minimal inflammatory changes are seen in the adjacent fat planes. This is most consistent with colitis. There is diverticulosis of the sigmoid colon with mural thickening.
[2018-04-01] MEDS ORDERED: cefTRIAXone 1 gm 1 GM/100 ML BAG IVPB STA (13:32)
[2018-04-01] MEDS ORDERED: metroNIDAZOLE IV 500 mg/100 ml 500 MG/100 ML BAG IVPB STA (13:33)
[2018-04-01] MEDS ORDERED: Albuterol-Ipratrop 3 mg / 0.5 (3 ml) UD IH PRN (14:39)
--- NOTE | 2018-04-01 14:59 | CP.PCM.HP ---
<Jin Rankin - Last Filed: 04/01/18 14:47> History of Present Illness - History of Present Illness History of Present Illness: CC: Abdominal Pain HPI: Pt is a 72 yo F with PMH of lymphoma, HTN, HLD, asthma, c. diff, diverticulosis [place] [facility] [place] one [place] history of abdominal pain. Patient states that pain is localized to the right lower quadrant, crampy, and 8 /10. Patient also states that she had diarrhea this morning and noticed blood clots per rectum. Patient states that there is no rectal pain. Patient states that she had a similar episode about a year ago. Patient also admits to associated ERNST, dizziness, fatigue, and nausea. Patient denies recent sick contacts, CP, SOB, vomiting, fever, chills, decreased appetite, melena, hematuria, or dysuria. Of note, last colonscopy was done on 01/21/18, which showed one cecal polyp, severe diverticulosis in the sigmoid and descending colon, and internal hemorrhoids. PMD: Wills PMH: Lymphoma, HTN, HLD, asthma, c. diff, diverticulosis Surg: Lipoma excisions, hysterectomy, cataracts All: Alendronate, ciprofloxacin, codeine, lisinopril, fosamax, sertraline, clarithomycin SH: Denied tobacco, EtOH, or illicit drug use FHx: HLD Medications: - Singulair 10 mg PO QPM - Calcium PO daily - Lipitor 40 mg PO daily - Atenolol 50 mg PO daily - ASA 81 PO MWF Present on Admission - Present on Admission Any Indicators Present on Admission: No Review of Systems - Review of Systems Review of Systems: 12 point ROS reviewed and is negative other than what is stated in HPI. Past Patient History - Infectious Disease Hx of Infectious Diseases: C.diff - Tetanus Immunizations Tetanus Immunization: Unknown - Past Medical History & Family History Past Medical History?: Yes - Past Social History Smoking Status: Never Smoked - CARDIAC Hx Cardiac Disorders: Yes Hx Hypertension: Yes - PULMONARY Hx Respiratory Disorders: Yes Hx Asthma: Yes - NEUROLOGICAL Hx Neurological Disorder: Yes (headaches) - HEENT Hx Cataracts: Yes (b/l [id number]) - RENAL Hx Chronic Kidney Disease: Yes Hx Kidney Stones: Yes - ENDOCRINE/METABOLIC Hx Endocrine Disorders: (pre diabetes no meds) - HEMATOLOGICAL/ONCOLOGICAL Hx Blood Disorders: Yes (VIT D DEF) Hx Cancer: Yes (lymphoma dx 2014) Hx Chemotherapy: Yes (last tx 02/2016) - INTEGUMENTARY Other/Comment: SCARRING TO BACK EXCISION OF LIPOMA TO BACK, scar to right abd due to pt having her r hand post op lying on r abd causing skin irritation - MUSCULOSKELETAL/RHEUMATOLOGICAL Hx Arthritis: Yes (hands) - GASTROINTESTINAL Other/Comment: GASTRITIS,DIVERTICULITIS,C DIFF 11/25/15 - GENITOURINARY/GYNECOLOGICAL Hx Genitourinary Disorders: No - PSYCHIATRIC Hx Psychophysiologic Disorder: No Hx Emotional Abuse: No Hx Physical Abuse: No Hx Substance Use: No - SURGICAL HISTORY Hx Amputation: Yes (right hand fingers 4 and 5 dog bite) Other/Comment: right 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 with skin graft due to dog bite, mass on back removed 2011 and 2013 - ANESTHESIA Hx Anesthesia: Yes Hx Anesthesia Reactions: No Hx Malignant Hyperthermia: No Meds Allergies/Adverse Reactions: Allergies Allergy/AdvReac Type Severity Reaction Status Date / Time alendronate sodium Allergy Intermediate NAUSEA/VOMT Verified 04/01/18 10:08 [From Fosamax] ING ciprofloxacin Allergy Intermediate NAUSEA/VOMI Verified 04/01/18 10:08 TING codeine Allergy Intermediate DIZZINESS Verified 04/01/18 10:08 lisinopril Allergy Unknown UNKNOWN Verified 04/01/18 10:08 clarithromycin Allergy unknown Verified 04/01/18 10:08 methimazole Allergy NAUSEA Verified 04/01/18 10:08 sertraline Allergy unknown Verified 04/01/18 10:08 Physical Exam - Constitutional Appears: No Acute Distress - Head Exam Head Exam: NORMAL INSPECTION - Eye Exam Eye Exam: Normal appearance - ENT Exam ENT Exam: Normal Exam - Neck Exam Neck exam: Positive for: Normal Inspection - Respiratory Exam Respiratory Exam: Clear to Auscultation Bilateral. absent: Rales, Rhonchi, Wheezes - Cardiovascular Exam Cardiovascular Exam: RRR, +S1, +S2. absent: Diastolic murmur, Gallop, Rubs, Systolic Murmur - GI/Abdominal Exam GI & Abdominal Exam: Distended, Soft, Tenderness (RLQ). absent: Guarding, Rebound - Extremities Exam Extremities exam: Positive for: normal inspection - Back Exam Additional comments: postoperative changes consistent with lipoma removal - Neurological Exam Neurological exam: Alert, CN II-XII Intact, Oriented x3 - Psychiatric Exam Psychiatric exam: Normal Affect, Normal Mood - Skin Skin Exam: Dry, Intact, Normal Color, Warm Results - Vital Signs Recent Vital Signs: Last Vital Signs Temp 98.8 F 04/01/18 10:07 Pulse 70 04/01/18 13:03 Resp 18 04/01/18 13:03 BP 152/72 H 04/01/18 13:03 Pulse Ox 97 04/01/18 13:03 - Labs Result Diagrams: 04/01/18 10:50 04/01/18 10:50 Assessment & Plan - Assessment and Plan (Free Text) Assessment: 72 F with PMH of lymphoma, HTN, HLD, asthma, c. diff, and diverticulosis admitted for evaluation and treatment of colitis. Plan: 1. Colitis - CT abd/pelvis showed focal area of mural thickening involving the distal transverse colon hepatic flexure and proximal descending colon. Minimal inflammatory changes are seen in the adjacent fat planes. This is most consistent with colitis. There is diverticulosis of the sigmoid colon with mural thickening - Protonix - Ceftriaxone/Flagyl - Hold ASA - Clear liquid diet - F/u blood and urine cultures - GI consulted 2. HTN - Atenolol 3. HLD - Lipitor 4. Asthma - Duoneb - Singulair GI/DVT PPx - Protonix - SCDs Pt seen and discussed in detail with Dr. Donaldson. Tristin Rankin, PGY1 <Haim Donaldson - Last Filed: 04/02/18 13:18> Results - Vital Signs Recent Vital Signs: Last Vital Signs Temp 98.3 F 04/02/18 07:48 Pulse 65 04/02/18 11:01 Resp 18 04/02/18 07:48 BP 120/76 04/02/18 11:01 Pulse Ox 95 04/02/18 07:48 - Labs Result Diagrams: 04/02/18 05:30 04/02/18 05:30 Labs: Laboratory Results - last 24 hr 04/01/18 04/02/18 04/02/18 20:50 01:20 05:30 WBC 8.0 7.0 7.2 RBC 4.12 4.06 4.21 Hgb 11.5 L 11.1 L 11.4 L Hct 34.6 L 33.5 L 34.9 L MCV 84.0 82.5 82.9 MCH 27.9 27.3 27.1 MCHC 33.2 33.1 32.7 RDW 14.0 13.9 14.0 Plt Count 179 176 174 MPV 9.2 9.5 9.8 Sodium Potassium Chloride Carbon Dioxide Anion Gap BUN Creatinine Est GFR ( Amer) Est GFR (Non-Af Amer) Random Glucose Calcium Iron TIBC % Saturation Ferritin Blood Type Blood Type Confirm Antibody Screen BBK History Checked 04/02/18 04/02/18 04/02/18 05:30 07:00 07:00 WBC RBC Hgb Hct MCV MCH MCHC RDW Plt Count MPV Sodium 144 Potassium 4.0 Chloride 108 H Carbon Dioxide 24 Anion Gap 15 BUN 13 Creatinine 0.7 Est GFR ( Amer) > 60 Est GFR (Non-Af Amer) > 60 Random Glucose 89 Calcium 8.8 Iron 37 L TIBC 280 % Saturation 13 L Ferritin 68.9 Blood Type Blood Type Confirm Antibody Screen BBK History Checked 04/02/18 04/02/18 09:10 09:30 WBC RBC Hgb Hct MCV MCH MCHC RDW Plt Count MPV Sodium Potassium Chloride Carbon Dioxide Anion Gap BUN Creatinine Est GFR ( Amer) Est GFR (Non-Af Amer) Random Glucose Calcium Iron TIBC % Saturation Ferritin Blood Type B NEGATIVE Blood Type Confirm B NEGATIVE Antibody Screen Negative BBK History Checked No verified bt Attending/Attestation - Attestation I have personally seen and examined this patient.: Yes I have fully participated in the care of the patient.: Yes I have reviewed all pertinent clinical information: Yes Notes (Text): 04/02/18 13:09 attending note; Patient seen and examined with resident. Patient is a 72 year old female with PMH of lymphoma,Hypertension, asthma, c. diff, diverticulosis [place] [facility] [place] history of abdominal pain. Patient states that pain is localized to the right lower quadrant, crampy, and 8 /10. CT abdomen and pelvis consistent with colitis. Currently no active bleeding. Monitor hemoglobin closely. GI evaluation requested. Patient had colonoscopy in December [address] Plasencia. With a history of C. difficile colitis. C. difficile ordered. Started on IV Rocephin and Flagyl. patient also follows up with Dr. garcia for lymphoma and anemia. upon discharge the patient will follow-up with PMD Dr. Wills.
--- NOTE | 2018-04-01 18:51 | CARD ---
APPROVED REPORT EKG Measurement Heart [id number] <Conclusion> Normal sinus rhythm with sinus arrhythmia Normal ECG
[2018-04-01 21:02] LABS: HEMOGLOBIN 11.5 g/dL (12.0-16.0); MEAN CORPUSCULAR HEMOGLOBIN 27.9 pg (25.0-35.0); MEAN CORPUSCULAR HGB CONC 33.2 g/dl (31.0-37.0); MEAN PLATELET VOLUME 9.2 fl (7.0-11.0); RBC 4.12 10^6/uL (3.5-6.1)
[2018-04-01] MEDS: metroNIDAZOLE IV 500 mg/100 ml 500 MG/100 ML BAG IVPB SCH (22:06)
[2018-04-02 01:36] LABS: HEMOGLOBIN 11.1 g/dL (12.0-16.0); MEAN CELL VOLUME 82.5 fl (80.0-105.0); MEAN CORPUSCULAR HEMOGLOBIN 27.3 pg (25.0-35.0); MEAN CORPUSCULAR HGB CONC 33.1 g/dl (31.0-37.0); MEAN PLATELET VOLUME 9.5 fl (7.0-11.0); RBC 4.06 10^6/uL (3.5-6.1); RED CELL DISTRIBUTION WIDTH 13.9 % (11.5-14.5)
[2018-04-02] MEDS: metroNIDAZOLE IV 500 mg/100 ml 500 MG/100 ML BAG IVPB SCH ×3 (05:32→21:18)
[2018-04-02 06:56] LABS: HEMOGLOBIN 11.4 g/dL (12.0-16.0); MEAN CELL VOLUME 82.9 fl (80.0-105.0); MEAN CORPUSCULAR HEMOGLOBIN 27.1 pg (25.0-35.0); MEAN CORPUSCULAR HGB CONC 32.7 g/dl (31.0-37.0); MEAN PLATELET VOLUME 9.8 fl (7.0-11.0); RBC 4.21 10^6/uL (3.5-6.1); WHITE BLOOD COUNT 7.2 10^3/ul (4.5-11.0)
[2018-04-02 07:02] LABS: BLOOD UREA NITROGEN 13 mg/dL (7-21); CALCIUM 8.8 mg/dL (8.4-10.5); GFR AFRICAN-AMERICAN > 60; GFR NON-AFRICAN AMERICAN > 60
[2018-04-02 09:01] LABS: IRON 37 ug/dL (45-180)
--- NOTE | 2018-04-02 09:09 | CP.PCM.CON ---
<Radha Marie - Last Filed: 04/02/18 10:40> History of Present Illness - History of Present Illness History of Present Illness: Gastroenterology Fellow/PGY5 Consult Note 72yo woman with PMH of Lymphoma 2014 with last chemotherapy 2015, HTN, HLD, C. diff colitis 07/2015, H. pylori Gastritis s/p eradication 05/2016 presenting with diarrhea. Patient notes onset of a large watery diarrhea with bright red blood per rectum at 3AM on Wednesday (04/01/18). She had an additional three episodes of watery stools with small blood clots throughout. She admits to one small watery stool with blood clot this morning with two additional soft stools without blood. Associated mild right lower quadrant pain yesterday, which has resolved today. Denies sick contacts, recent antibiotics, recent travel, fever, chills, sweats, nausea, vomiting, hematemesis, melena, or uninentional weight loss. She notes having diffuse abdominal pain and larger quantity of bloody diarrhea with C. diff diagnosis in 2014 for which she received vancomycin PO on record review. Established patient of Dr. 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 EGD 05/2016 showed moderate H. pylori antral Gastritis and mild diffuse gastritis. 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, B/L cataracts, back lipoma, appendectomy, cholecystectomy Review of Systems - Review of Systems Review of Systems: 12-point review of systems negative except for as above Past Patient History - Infectious Disease Hx of Infectious Diseases: C.diff - Tetanus Immunizations Tetanus Immunization: Unknown - Past Medical History & Family History Past Medical History?: Yes - Past Social History Smoking Status: Never Smoked - CARDIAC Hx Cardiac Disorders: Yes Hx Hypertension: Yes - PULMONARY Hx Respiratory Disorders: Yes Hx Asthma: Yes - NEUROLOGICAL Hx Neurological Disorder: Yes (headaches) - HEENT Hx Cataracts: Yes (b/l [id number]) - RENAL Hx Chronic Kidney Disease: Yes Hx Kidney Stones: Yes - ENDOCRINE/METABOLIC Hx Endocrine Disorders: (pre diabetes no meds) - HEMATOLOGICAL/ONCOLOGICAL Hx Blood Disorders: Yes (VIT D DEF) Hx Cancer: Yes (lymphoma dx 2014) Hx Chemotherapy: Yes (last tx 02/2016) - INTEGUMENTARY Other/Comment: SCARRING TO BACK EXCISION OF LIPOMA TO BACK, scar to right abd due to pt having her r hand post op lying on r abd causing skin irritation - MUSCULOSKELETAL/RHEUMATOLOGICAL Hx Arthritis: Yes (hands) - GASTROINTESTINAL Other/Comment: GASTRITIS,DIVERTICULITIS,C DIFF 11/25/15 - GENITOURINARY/GYNECOLOGICAL Hx Genitourinary Disorders: No - PSYCHIATRIC Hx Psychophysiologic Disorder: No Hx Emotional Abuse: No Hx Physical Abuse: No Hx Substance Use: No - SURGICAL HISTORY Hx Amputation: Yes (right hand fingers 4 and 5 dog bite) Other/Comment: right 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 with skin graft due to dog bite, mass on back removed 2011 and 2013 - ANESTHESIA Hx Anesthesia: Yes Hx Anesthesia Reactions: No Hx Malignant Hyperthermia: No Meds Allergies/Adverse Reactions: Allergies Allergy/AdvReac Type Severity Reaction Status Date / Time alendronate sodium Allergy Intermediate NAUSEA/VOMT Verified 04/01/18 10:08 [From Fosamax] ING ciprofloxacin Allergy Intermediate NAUSEA/VOMI Verified 04/01/18 10:08 TING codeine Allergy Intermediate DIZZINESS Verified 04/01/18 10:08 lisinopril Allergy Unknown UNKNOWN Verified 04/01/18 10:08 clarithromycin Allergy unknown Verified 04/01/18 10:08 methimazole Allergy NAUSEA Verified 04/01/18 10:08 sertraline Allergy unknown Verified 04/01/18 10:08 - Medications Medications: Current Medications Albuterol/Ipratropium (Duoneb 3 Mg/0.5 Mg (3 Ml) Ud) 3 ml IH Q2H PRN PRN Reason: Shortness of Breath Atenolol (Tenormin) 50 mg PO DAILY [facility] Atorvastatin Calcium (Lipitor) 40 mg PO QPM [facility] Last Admin: 04/01/18 18:00 Dose: 40 mg Metronidazole (Flagyl) 500 mg in 100 mls @ 100 mls/hr IVPB Q8 [facility] PRN Reason: Protocol Last Admin: 04/02/18 05:32 Dose: 100 mls/hr Ceftriaxone Sodium (Rocephin 1 Gram Ivpb) 1 gm in 100 mls @ 100 mls/hr IVPB DAILY [facility] PRN Reason: Protocol Montelukast Sodium (Singulair) 10 mg PO QPM [facility] Last Admin: 04/01/18 18:00 Dose: 10 mg Non-Formulary Medication (Calcium Carb, Citrate/Vit D3 [Calcium + D3 Er Tablet] ) 1 each PO DAILY [facility] Pantoprazole Sodium (Protonix Inj) 40 mg IVP BID [facility] Physical Exam - Constitutional Appears: Non-toxic, No Acute Distress - Head Exam Head Exam: ATRAUMATIC, NORMOCEPHALIC - Eye Exam Eye Exam: EOMI, PERRL Pupil Exam: PERRL. absent: Miosis, Mydriatic - ENT Exam ENT Exam: Mucous Membranes Moist, Normal Oropharynx - Neck Exam Neck exam: Positive for: Full Rom, Normal Inspection - Respiratory Exam Respiratory Exam: Clear to Auscultation Bilateral. absent: Rales, Rhonchi, Wheezes - Cardiovascular Exam Cardiovascular Exam: RRR, +S1, +S2. absent: Gallop, Rubs - GI/Abdominal Exam GI & Abdominal Exam: Normal Bowel Sounds, Soft. absent: Distended, Firm, Guarding, Organomegaly, Rebound, Rigid, Tenderness - Extremities Exam Extremities exam: Positive for: normal inspection, pedal edema - Neurological Exam Neurological exam: Alert, Oriented x3 - Psychiatric Exam Psychiatric exam: Normal Affect, Normal Mood - Skin Skin Exam: Dry, Intact, Normal Color, Warm Results - Vital Signs Recent Vital Signs: Last Vital Signs Temp 98.3 F 04/02/18 07:48 Pulse 68 04/02/18 07:48 Resp 18 04/02/18 07:48 BP 143/61 04/02/18 07:48 Pulse Ox 95 04/02/18 07:48 - Labs Result Diagrams: 04/02/18 05:30 04/02/18 05:30 Labs: Laboratory Results - last 24 hr 04/01/18 04/02/18 04/02/18 20:50 01:20 05:30 WBC 8.0 7.0 7.2 RBC 4.12 4.06 4.21 Hgb 11.5 L 11.1 L 11.4 L Hct 34.6 L 33.5 L 34.9 L MCV 84.0 82.5 82.9 MCH 27.9 27.3 27.1 MCHC 33.2 33.1 32.7 RDW 14.0 13.9 14.0 Plt Count 179 176 174 MPV 9.2 9.5 9.8 Sodium Potassium Chloride Carbon Dioxide Anion Gap BUN Creatinine Est GFR ( Amer) Est GFR (Non-Af Amer) Random Glucose Calcium 04/02/18 05:30 WBC RBC Hgb Hct MCV MCH MCHC RDW Plt Count MPV Sodium 144 Potassium 4.0 Chloride 108 H Carbon Dioxide 24 Anion Gap 15 BUN 13 Creatinine 0.7 Est GFR ( Amer) > 60 Est GFR (Non-Af Amer) > 60 Random Glucose 89 Calcium 8.8 Assessment & Plan - Assessment and Plan (Free Text) Assessment: 72yo woman with PMH of Lymphoma 2014 with last chemotherapy 2015, HTN, HLD, C. diff colitis 07/2015, H. pylori Gastritis s/p eradication 05/2016 presenting with diarrhea. Active treatment of colitis on CT A/P PO contrast with thickening transverse, hepatic flexure, descending colon, and mild thickening of sigmoid diverticulosis. Established patient of Dr. 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 EGD 2015 showed moderate H. pylori antral Gastritis and mild diffuse gastritis. Plan: -abdominal pain resolved -one small watery BM with BRBPR this AM -tolerated clear liquid diet, advance to band diet -on Flagyl -pending Cdiff, if positive, switch to vancomycin PO -complete 10-14 day antibiotic course -keep established appointment with Dr. Plasencia this month 03/2018 -previously planned repeat colonoscopy due 06/2018 for piecemeal polypectomy -will discuss possible earlier luminal evaluation on outpatient follow up <Patric Bonilla - Last Filed: 04/02/18 13:26> Meds - Medications Medications: Current Medications Albuterol/Ipratropium (Duoneb 3 Mg/0.5 Mg (3 Ml) Ud) 3 ml IH Q2H PRN PRN Reason: Shortness of Breath Atenolol (Tenormin) 50 mg PO DAILY [facility] Last Admin: 04/02/18 11:01 Dose: 50 mg Atorvastatin Calcium (Lipitor) 40 mg PO QPM [facility] Last Admin: 04/01/18 18:00 Dose: 40 mg Metronidazole (Flagyl) 500 mg in 100 mls @ 100 mls/hr IVPB Q8 [facility] PRN Reason: Protocol Last Admin: 04/02/18 05:32 Dose: 100 mls/hr Ceftriaxone Sodium (Rocephin 1 Gram Ivpb) 1 gm in 100 mls @ 100 mls/hr IVPB DAILY [facility] PRN Reason: Protocol Last Admin: 04/02/18 11:00 Dose: 100 mls/hr Montelukast Sodium (Singulair) 10 mg PO QPM [facility] Last Admin: 04/01/18 18:00 Dose: 10 mg Non-Formulary Medication (Calcium Carb, Citrate/Vit D3 [Calcium + D3 Er Tablet] ) 1 each PO DAILY [facility] Last Admin: 04/02/18 11:02 Dose: Not Given Pantoprazole Sodium (Protonix Inj) 40 mg IVP BID [facility] Last Admin: 04/02/18 11:00 Dose: 40 mg Results - Vital Signs Recent Vital Signs: Last Vital Signs Temp 98.3 F 04/02/18 07:48 Pulse 65 04/02/18 11:01 Resp 18 04/02/18 07:48 BP 120/76 04/02/18 11:01 Pulse Ox 95 04/02/18 07:48 - Labs Result Diagrams: 04/02/18 05:30 04/02/18 05:30 Labs: Laboratory Results - last 24 hr 04/01/18 04/02/18 04/02/18 20:50 01:20 05:30 WBC 8.0 7.0 7.2 RBC 4.12 4.06 4.21 Hgb 11.5 L 11.1 L 11.4 L Hct 34.6 L 33.5 L 34.9 L MCV 84.0 82.5 82.9 MCH 27.9 27.3 27.1 MCHC 33.2 33.1 32.7 RDW 14.0 13.9 14.0 Plt Count 179 176 174 MPV 9.2 9.5 9.8 Sodium Potassium Chloride Carbon Dioxide Anion Gap BUN Creatinine Est GFR ( Amer) Est GFR (Non-Af Amer) Random Glucose Calcium Iron TIBC % Saturation Ferritin Blood Type Blood Type Confirm Antibody Screen BBK History Checked 04/02/18 04/02/18 04/02/18 05:30 07:00 07:00 WBC RBC Hgb Hct MCV MCH MCHC RDW Plt Count MPV Sodium 144 Potassium 4.0 Chloride 108 H Carbon Dioxide 24 Anion Gap 15 BUN 13 Creatinine 0.7 Est GFR ( Amer) > 60 Est GFR (Non-Af Amer) > 60 Random Glucose 89 Calcium 8.8 Iron 37 L TIBC 280 % Saturation 13 L Ferritin 68.9 Blood Type Blood Type Confirm Antibody Screen BBK History Checked 04/02/18 04/02/18 09:10 09:30 WBC RBC Hgb Hct MCV MCH MCHC RDW Plt Count MPV Sodium Potassium Chloride Carbon Dioxide Anion Gap BUN Creatinine Est GFR ( Amer) Est GFR (Non-Af Amer) Random Glucose Calcium Iron TIBC % Saturation Ferritin Blood Type B NEGATIVE Blood Type Confirm B NEGATIVE Antibody Screen Negative BBK History Checked No verified bt Attending/Attestation - Attestation I have personally seen and examined this patient.: Yes I have fully participated in the care of the patient.: Yes I have reviewed all pertinent clinical information: Yes Notes (Text): 04/02/18 13:21 This is a 72 yr old woman with PMH of Lymphoma 2014 with last chemotherapy 2015, HTN, HLD, C. diff colitis and H. pylori Gastritis s/p eradication presenting with diarrhea. Active treatment of colitis on CT A/P PO contrast with thickening transverse, hepatic flexure, descending colon, and mild thickening of sigmoid diverticulosis. 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 EGD 05/2016 showed moderate H. pylori antral Gastritis and mild diffuse gastritis. Tolerated clear liquid diet, advance as tolerated. has appointment with Dr Plasencia this month. Continue antibiotics to finish 2 week course with possible earlier luminal evaluation on outpatient follow up. Will sign off now
[2018-04-02 09:11] LABS: % IRON SATURATION 13 % (20-55); TOTAL IRON BINDING CAPACITY 280 ug/dL (265-497)
[2018-04-02] MEDS: cefTRIAXone 1 gm 1 GM/100 ML BAG IVPB SCH (11:00)
[2018-04-02] MEDS: VIT D3 PO SCH (11:02)
[2018-04-02] MEDS: CALCIUM CARB CITRATE PO SCH (11:02)
--- NOTE | 2018-04-02 11:46 | CP.PCM.PN ---
<Jin Rankin - Last Filed: 04/02/18 11:41> Subjective - Date & Time of Evaluation Date of Evaluation: 04/02/18 Time of Evaluation: 11:41 - Subjective Subjective: Medicine Progress Note Pt seen and examined at bedside. No acute overnight events. Patient reports one BM with BRBPR overnight. Abdominal pain is improving. Pt denies CP, SOB, n/v/d, fever, chills, ERNST, or dizziness. Objective - Vital Signs/Intake and Output Vital Signs (last 24 hours): Temp Pulse Resp BP Pulse Ox 98.3 F 65 18 120/76 95 04/02/18 07:48 04/02/18 11:01 04/02/18 07:48 04/02/18 11:01 04/02/18 07:48 Intake and Output: 04/02/18 04/02/18 06:59 18:59 Intake Total 740 Balance 740 - Medications Medications: Current Medications Albuterol/Ipratropium (Duoneb 3 Mg/0.5 Mg (3 Ml) Ud) 3 ml IH Q2H PRN PRN Reason: Shortness of Breath Atenolol (Tenormin) 50 mg PO DAILY [facility] Last Admin: 04/02/18 11:01 Dose: 50 mg Atorvastatin Calcium (Lipitor) 40 mg PO QPM [facility] Last Admin: 04/01/18 18:00 Dose: 40 mg Metronidazole (Flagyl) 500 mg in 100 mls @ 100 mls/hr IVPB Q8 [facility] PRN Reason: Protocol Last Admin: 04/02/18 05:32 Dose: 100 mls/hr Ceftriaxone Sodium (Rocephin 1 Gram Ivpb) 1 gm in 100 mls @ 100 mls/hr IVPB DAILY [facility] PRN Reason: Protocol Last Admin: 04/02/18 11:00 Dose: 100 mls/hr Montelukast Sodium (Singulair) 10 mg PO QPM [facility] Last Admin: 04/01/18 18:00 Dose: 10 mg Non-Formulary Medication (Calcium Carb, Citrate/Vit D3 [Calcium + D3 Er Tablet] ) 1 each PO DAILY [facility] Last Admin: 04/02/18 11:02 Dose: Not Given Pantoprazole Sodium (Protonix Inj) 40 mg IVP BID [facility] Last Admin: 04/02/18 11:00 Dose: 40 mg - Labs Labs: 04/02/18 05:30 04/02/18 05:30 PT 11.1 SECONDS (9.4-12.5) 04/01/18 10:50 INR 0.97 (0.93-1.08) 04/01/18 10:50 APTT 27.8 Seconds (25.1-36.5) 04/01/18 10:50 - Constitutional Appears: No Acute Distress - Head Exam Head Exam: NORMAL INSPECTION - Eye Exam Eye Exam: Normal appearance - ENT Exam ENT Exam: Mucous Membranes Moist, Normal Exam - Neck Exam Neck Exam: Normal Inspection - Respiratory Exam Respiratory Exam: Clear to Ausculation Bilateral. absent: Rales, Rhonchi, Wheezes, Respiratory Distress - Cardiovascular Exam Cardiovascular Exam: RRR, +S1, +S2. absent: Gallop, Rubs, Murmur - GI/Abdominal Exam GI & Abdominal Exam: Soft, Tenderness (RLQ). absent: Distended, Guarding, Rebound - Extremities Exam Extremities Exam: Normal Inspection - Back Exam Back Exam: NORMAL INSPECTION - Neurological Exam Neurological Exam: Alert, Awake, CN II-XII Intact, Oriented x3 - Psychiatric Exam Psychiatric exam: Normal Affect, Normal Mood - Skin Skin Exam: Dry, Intact, Normal Color, Warm Assessment and Plan - Assessment and Plan (Free Text) Assessment: 72 F with PMH of lymphoma, HTN, HLD, asthma, c. diff, and diverticulosis admitted for evaluation and treatment of colitis. Plan: 1. Colitis - CT abd/pelvis showed focal area of mural thickening involving the distal transverse colon hepatic flexure and proximal descending colon. Minimal inflammatory changes are seen in the adjacent fat planes. This is most consistent with colitis. There is diverticulosis of the sigmoid colon with mural thickening - Protonix - Ceftriaxone/Flagyl - Hold ASA - [place] low fiber diet - F/u blood and urine cultures, c. diff - GI consulted 2. Iron Deficiency Anemia - Iron low, TIBC normal, sat low - IV iron tomorrow 3. HTN - Atenolol 4. HLD - Lipitor 5. Asthma - Duoneb - Singulair GI/DVT PPx - Protonix - SCDs Pt seen and discussed in detail with Dr. Donaldson. Tristin Rankin, PGY1 <Haim Donaldson - Last Filed: 04/02/18 15:21> Objective - Vital Signs/Intake and Output Vital Signs (last 24 hours): Temp Pulse Resp BP Pulse Ox 98.3 F 65 18 120/76 95 04/02/18 07:48 04/02/18 11:01 04/02/18 07:48 04/02/18 11:01 04/02/18 07:48 Intake and Output: 04/02/18 04/02/18 06:59 18:59 Intake Total 740 840 Balance 740 840 - Medications Medications: Current Medications Albuterol/Ipratropium (Duoneb 3 Mg/0.5 Mg (3 Ml) Ud) 3 ml IH Q2H PRN PRN Reason: Shortness of Breath Atenolol (Tenormin) 50 mg PO DAILY [facility] Last Admin: 04/02/18 11:01 Dose: 50 mg Atorvastatin Calcium (Lipitor) 40 mg PO QPM [facility] Last Admin: 04/01/18 18:00 Dose: 40 mg Metronidazole (Flagyl) 500 mg in 100 mls @ 100 mls/hr IVPB Q8 [facility] PRN Reason: Protocol Last Admin: 04/02/18 05:32 Dose: 100 mls/hr Ceftriaxone Sodium (Rocephin 1 Gram Ivpb) 1 gm in 100 mls @ 100 mls/hr IVPB DAILY [facility] PRN Reason: Protocol Last Admin: 04/02/18 11:00 Dose: 100 mls/hr Montelukast Sodium (Singulair) 10 mg PO QPM [facility] Last Admin: 04/01/18 18:00 Dose: 10 mg Non-Formulary Medication (Calcium Carb, Citrate/Vit D3 [Calcium + D3 Er Tablet] ) 1 each PO DAILY [facility] Last Admin: 04/02/18 11:02 Dose: Not Given Pantoprazole Sodium (Protonix Inj) 40 mg IVP BID [facility] Last Admin: 04/02/18 11:00 Dose: 40 mg - Labs Labs: 04/02/18 05:30 04/02/18 05:30 PT 11.1 SECONDS (9.4-12.5) 04/01/18 10:50 INR 0.97 (0.93-1.08) 04/01/18 10:50 APTT 27.8 Seconds (25.1-36.5) 04/01/18 10:50 Attending/Attestation - Attestation I have personally seen and examined this patient.: Yes I have fully participated in the care of the patient.: Yes I have reviewed all pertinent clinical information, including history, physical exam and plan: Yes Notes (Text): 04/02/18 15:20 attending note; Patient seen and examined with resident. Patient is a 72 year old female with PMH of lymphoma,Hypertension, asthma, c. diff, diverticulosis presents to [facility] due to one day history of abdominal pain. Patient states that pain is localized to the right lower quadrant, crampy, and 8 /10. CT abdomen and pelvis consistent with colitis. Currently no active bleeding. hemoglobin is stable. Iron deficiency anemia; one dose iron ordered. GI evaluation appreciated. Patient had colonoscopy in December [address] Plasencia. C. difficile is negative. Started on IV Rocephin and Flagyl. started on clear liquid diet. Advance as tolerated. Needs follow-up with Dr. Plasencia for repeat colonoscopy. upon discharge the patient will follow-up with PMD Dr. Wills. 04/02/18 15:21
[2018-04-03] MEDS: metroNIDAZOLE IV 500 mg/100 ml 500 MG/100 ML BAG IVPB SCH ×3 (05:25→22:14)
[2018-04-03 07:19] LABS: HEMOGLOBIN 11.6 g/dL (12.0-16.0); MEAN CORPUSCULAR HGB CONC 32.5 g/dl (31.0-37.0); MEAN PLATELET VOLUME 9.8 fl (7.0-11.0); RBC 4.3 10^6/uL (3.5-6.1); RED CELL DISTRIBUTION WIDTH 13.9 % (11.5-14.5); WHITE BLOOD COUNT 6.3 10^3/ul (4.5-11.0)
[2018-04-03 07:56] LABS: BLOOD UREA NITROGEN 16 mg/dL (7-21); CALCIUM 8.8 mg/dL (8.4-10.5); GFR AFRICAN-AMERICAN > 60; GFR NON-AFRICAN AMERICAN > 60
[2018-04-03] MEDS: cefTRIAXone 1 gm 1 GM/100 ML BAG IVPB SCH (09:25)
[2018-04-03] MEDS: VIT D3 PO SCH (09:27)
[2018-04-03] MEDS: CALCIUM CARB CITRATE PO SCH (09:27)
--- NOTE | 2018-04-03 11:48 | CP.PCM.PN ---
<Jin Rankin - Last Filed: 04/03/18 11:44> Subjective - Date & Time of Evaluation Date of Evaluation: 04/03/18 Time of Evaluation: 11:44 - Subjective Subjective: Medicine Progress Note Pt seen and examined at bedside. No acute overnight events. Patient states that she had some diarrhea overnight, but no blood. Pt states that abdominal pain is improving. Pt denies CP, SOB, n/v/d, fever, chills, ERNST, or dizziness. Objective - Vital Signs/Intake and Output Vital Signs (last 24 hours): Temp Pulse Resp BP Pulse Ox 98 F 60 19 166/62 H 96 04/03/18 07:41 04/03/18 09:26 04/03/18 07:41 04/03/18 09:26 04/03/18 07:41 Intake and Output: 04/03/18 04/03/18 06:59 18:59 Intake Total 700 Balance 700 - Medications Medications: Current Medications Albuterol/Ipratropium (Duoneb 3 Mg/0.5 Mg (3 Ml) Ud) 3 ml IH Q2H PRN PRN Reason: Shortness of Breath Atenolol (Tenormin) 50 mg PO DAILY [facility] Last Admin: 04/03/18 09:26 Dose: 50 mg Atorvastatin Calcium (Lipitor) 40 mg PO QPM [facility] Last Admin: 04/02/18 17:29 Dose: 40 mg Metronidazole (Flagyl) 500 mg in 100 mls @ 100 mls/hr IVPB Q8 [facility] PRN Reason: Protocol Last Admin: 04/03/18 05:25 Dose: 100 mls/hr Ceftriaxone Sodium (Rocephin 1 Gram Ivpb) 1 gm in 100 mls @ 100 mls/hr IVPB DAILY [facility] PRN Reason: Protocol Last Admin: 04/03/18 09:25 Dose: 100 mls/hr Montelukast Sodium (Singulair) 10 mg PO QPM [facility] Last Admin: 04/02/18 17:29 Dose: 10 mg Non-Formulary Medication (Calcium Carb, Citrate/Vit D3 [Calcium + D3 Er Tablet] ) 1 each PO DAILY [facility] Last Admin: 04/03/18 09:27 Dose: Not Given Pantoprazole Sodium (Protonix Inj) 40 mg IVP BID [facility] Last Admin: 04/03/18 09:29 Dose: 40 mg - Labs Labs: 04/03/18 06:30 04/03/18 06:30 PT 11.1 SECONDS (9.4-12.5) 04/01/18 10:50 INR 0.97 (0.93-1.08) 04/01/18 10:50 APTT 27.8 Seconds (25.1-36.5) 04/01/18 10:50 - Constitutional Appears: No Acute Distress - Head Exam Head Exam: NORMAL INSPECTION - Eye Exam Eye Exam: Normal appearance Pupil Exam: NORMAL ACCOMODATION - ENT Exam ENT Exam: Mucous Membranes Moist, Normal Exam - Neck Exam Neck Exam: Normal Inspection - Respiratory Exam Respiratory Exam: Clear to Ausculation Bilateral. absent: Rales, Rhonchi, Wheezes - Cardiovascular Exam Cardiovascular Exam: RRR, +S1, +S2. absent: Gallop, Rubs, Murmur - GI/Abdominal Exam GI & Abdominal Exam: Soft, Tenderness (RLQ). absent: Distended, Guarding, Rebound - Extremities Exam Extremities Exam: Normal Inspection - Back Exam Back Exam: NORMAL INSPECTION - Neurological Exam Neurological Exam: Alert, Awake, CN II-XII Intact, Oriented x3 - Psychiatric Exam Psychiatric exam: Normal Affect, Normal Mood - Skin Skin Exam: Dry, Intact, Normal Color, Warm Assessment and Plan - Assessment and Plan (Free Text) Assessment: 72 F with PMH of lymphoma, HTN, HLD, asthma, c. diff, and diverticulosis admitted for evaluation and treatment of colitis. Plan: 1. Colitis - CT abd/pelvis showed focal area of mural thickening involving the distal transverse colon hepatic flexure and proximal descending colon. Minimal inflammatory changes are seen in the adjacent fat planes. This is most consistent with colitis. There is diverticulosis of the sigmoid colon with mural thickening - Protonix - Ceftriaxone/Flagyl - Hold ASA - [facility] low fiber diet - C. diff negative - Blood cultures negative - GI consulted 2. Iron Deficiency Anemia - Iron low, TIBC normal, sat low - IV iron one dose yesterday, will give one more today 3. HTN - Atenolol 4. HLD - Lipitor 5. Asthma - Duoneb - Singulair GI/DVT PPx - Protonix - SCDs Dispo: Patient will follow up with Dr. Plasencia outpatient and continue PO abx for 2 weeks upon discharge. Pt seen and discussed in detail with Dr. Donaldson. Tristin Rankin, PGY1 <Haim Donaldson - Last Filed: 04/03/18 14:37> Objective - Vital Signs/Intake and Output Vital Signs (last 24 hours): Temp Pulse Resp BP Pulse Ox 98 F 60 19 166/62 H 96 04/03/18 07:41 04/03/18 09:26 04/03/18 07:41 04/03/18 09:26 04/03/18 07:41 Intake and Output: 04/03/18 04/03/18 06:59 18:59 Intake Total 700 Balance 700 - Medications Medications: Current Medications Albuterol/Ipratropium (Duoneb 3 Mg/0.5 Mg (3 Ml) Ud) 3 ml IH Q2H PRN PRN Reason: Shortness of Breath Atenolol (Tenormin) 50 mg PO DAILY [facility] Last Admin: 04/03/18 09:26 Dose: 50 mg Atorvastatin Calcium (Lipitor) 40 mg PO QPM [facility] Last Admin: 04/02/18 17:29 Dose: 40 mg Metronidazole (Flagyl) 500 mg in 100 mls @ 100 mls/hr IVPB Q8 [facility] PRN Reason: Protocol Last Admin: 04/03/18 13:13 Dose: 100 mls/hr Ceftriaxone Sodium (Rocephin 1 Gram Ivpb) 1 gm in 100 mls @ 100 mls/hr IVPB DAILY [facility] PRN Reason: Protocol Last Admin: 04/03/18 09:25 Dose: 100 mls/hr Montelukast Sodium (Singulair) 10 mg PO QPM [facility] Last Admin: 04/02/18 17:29 Dose: 10 mg Non-Formulary Medication (Calcium Carb, Citrate/Vit D3 [Calcium + D3 Er Tablet] ) 1 each PO DAILY [facility] Last Admin: 04/03/18 09:27 Dose: Not Given Pantoprazole Sodium (Protonix Inj) 40 mg IVP BID [facility] Last Admin: 04/03/18 09:29 Dose: 40 mg - Labs Labs: 04/03/18 06:30 04/03/18 06:30 PT 11.1 SECONDS (9.4-12.5) 04/01/18 10:50 INR 0.97 (0.93-1.08) 04/01/18 10:50 APTT 27.8 Seconds (25.1-36.5) 04/01/18 10:50 Attending/Attestation - Attestation I have personally seen and examined this patient.: Yes I have fully participated in the care of the patient.: Yes I have reviewed all pertinent clinical information, including history, physical exam and plan: Yes Notes (Text): 04/03/18 14:35 attending note; Patient seen and examined with resident. Patient is a 72 year old female with PMH of lymphoma,Hypertension, asthma, c. diff, diverticulosis [place] [facility] [place] to one day history of abdominal pain. Patient states that pain is localized to the right lower quadrant, crampy, and 8 /10. CT abdomen and pelvis consistent with colitis. Currently no active bleeding. hemoglobin is stable. today complaining of significant diarrhea. Patient is feeling weak after that. Denies any dizziness. Denies any chest pain. Iron deficiency anemia; started on IV iron. GI evaluation appreciated. Patient had colonoscopy in December [address] Plasencia. C. difficile is negative. on IV Rocephin and Flagyl. started on diet. Monitor closel. Needs follow-up with Dr. Plasencia for repeat colonoscopy. possible discharge home if clinically stable/diarrhea improves. upon discharge the patient will follow-up with PMD Dr. Wills. 04/03/18 14:36
[2018-04-03] MEDS ORDERED: Sodium Chloride 0.9% 1,000 ML IV SCH (14:45)
[2018-04-04] MEDS: metroNIDAZOLE IV 500 mg/100 ml 500 MG/100 ML BAG IVPB SCH (05:33)
[2018-04-04 06:46] LABS: HEMOGLOBIN 11.1 g/dL (12.0-16.0); MEAN CELL VOLUME 81.9 fl (80.0-105.0); MEAN CORPUSCULAR HEMOGLOBIN 27.5 pg (25.0-35.0); MEAN CORPUSCULAR HGB CONC 33.5 g/dl (31.0-37.0); MEAN PLATELET VOLUME 9.5 fl (7.0-11.0); RBC 4.04 10^6/uL (3.5-6.1); WHITE BLOOD COUNT 4.9 10^3/ul (4.5-11.0)
[2018-04-04 06:56] LABS: BLOOD UREA NITROGEN 15 mg/dL (7-21); CALCIUM 8.4 mg/dL (8.4-10.5); GFR AFRICAN-AMERICAN > 60; GFR NON-AFRICAN AMERICAN > 60
[2018-04-04 07:50] VITALS: BP 163/68; PULSE 66; RESP 20; TEMP 97.5; O2SAT 94
[2018-04-04] MEDS: cefTRIAXone 1 gm 1 GM/100 ML BAG IVPB SCH (09:10)
[2018-04-04] MEDS: VIT D3 PO SCH (09:11)
[2018-04-04] MEDS: CALCIUM CARB CITRATE PO SCH (09:11)
--- NOTE | 2018-04-04 11:23 | CP.PCM.DIS ---
<LópezTeri - Last Filed: 04/04/18 11:21> Provider - Provider Date of Admission: 04/01/18 13:33 Attending physician: Milly Figueroa MD Primary care physician: Johann Consults: Gastroenterology Time Spent in preparation of Discharge (in minutes): 35 Hospital Course - Lab Results Lab Results: Micro Results 04/01/18 14:00 Blood Blood Culture - Preliminary NO GROWTH AFTER 48 HOURS 04/01/18 13:58 Blood Blood Culture - Preliminary NO GROWTH AFTER 48 HOURS 04/01/18 14:00 Urine Urine Culture - Final Gram Positive Cocci 04/02/18 02:15 Stool C. difficile Antigen & Toxin A,B (M - Final Most Recent Lab Values WBC 4.9 10^3/ul (4.5-11.0) D 04/04/18 05:30 RBC 4.04 10^6/uL (3.5-6.1) 04/04/18 05:30 Hgb 11.1 g/dL (12.0-16.0) L 04/04/18 05:30 Hct 33.1 % (36.0-48.0) L 04/04/18 05:30 MCV 81.9 fl (80.0-105.0) 04/04/18 05:30 MCH 27.5 pg (25.0-35.0) 04/04/18 05:30 MCHC 33.5 g/dl (31.0-37.0) 04/04/18 05:30 RDW 14.0 % (11.5-14.5) 04/04/18 05:30 Plt Count 159 10^3/uL (120.0-450.0) 04/04/18 05:30 MPV 9.5 fl (7.0-11.0) 04/04/18 05:30 Gran % 61.9 % (50.0-68.0) 04/01/18 10:50 Lymph % (Auto) 27.7 % (22.0-35.0) 04/01/18 10:50 [place] % (Auto) 7.0 % (1.0-6.0) H 04/01/18 10:50 Eos % (Auto) 2.7 % (1.5-5.0) 04/01/18 10:50 Baso % (Auto) 0.7 % (0.0-3.0) 04/01/18 10:50 Gran # 4.98 (1.4-6.5) 04/01/18 10:50 Lymph # (Auto) 2.2 (1.2-3.4) 04/01/18 10:50 [place] # (Auto) 0.6 (0.1-0.6) 04/01/18 10:50 Eos # (Auto) 0.2 (0.0-0.7) 04/01/18 10:50 Baso # (Auto) 0.06 K/mm3 (0.0-2.0) 04/01/18 10:50 PT 11.1 SECONDS (9.4-12.5) 04/01/18 10:50 INR 0.97 (0.93-1.08) 04/01/18 10:50 APTT 27.8 Seconds (25.1-36.5) 04/01/18 10:50 pO2 34 mm/Hg (30-55) 04/01/18 10:50 VBG pH 7.35 (7.32-7.43) 04/01/18 10:50 VBG pCO2 48.0 (40-60) 04/01/18 10:50 VBG HCO3 26.5 mmol/l (21-28) 04/01/18 10:50 VBG Total CO2 28.0 mmol.L (22-28) 04/01/18 10:50 VBG O2 Sat (Calc) 65.0 % (40-65) 04/01/18 10:50 VBG Base Excess 0.3 mmol/L (0.0-2.0) 04/01/18 10:50 VBG Potassium 4.4 mmol/L (3.6-5.2) 04/01/18 10:50 Sodium 142.0 mmol/L (132-148) 04/01/18 10:50 Chloride 107.0 mmol/L (98-107) 04/01/18 10:50 Glucose 110 mg/dl (65-105) H 04/01/18 10:50 Lactate 1.2 mmol/L (0.7-2.1) 04/01/18 10:50 FiO2 21.0 % 04/01/18 10:50 Sodium 145 mmol/L (132-148) 04/04/18 05:30 Potassium 3.9 mmol/L (3.6-5.0) 04/04/18 05:30 Chloride 114 mmol/L (98-107) H 04/04/18 05:30 Carbon Dioxide 23 mmol/L (21-33) 04/04/18 05:30 Anion Gap 13 (10-20) 04/04/18 05:30 BUN 15 mg/dL (7-21) 04/04/18 05:30 Creatinine 0.6 mg/dl (0.7-1.2) L 04/04/18 05:30 Est GFR ( Amer) > 60 04/04/18 05:30 Est GFR (Non-Af Amer) > 60 04/04/18 05:30 POC Glucose (mg/dL) 98 mg/dL (65-110) 04/03/18 08:42 Random Glucose 88 mg/dL (70-110) 04/04/18 05:30 Calcium 8.4 mg/dL (8.4-10.5) 04/04/18 05:30 Iron 37 ug/dL (45-180) L 04/02/18 07:00 TIBC 280 ug/dL (265-497) 04/02/18 07:00 % Saturation 13 % (20-55) L 04/02/18 07:00 Ferritin 68.9 ng/mL 04/02/18 07:00 Total Bilirubin 0.7 mg/dL (0.2-1.3) 04/01/18 10:50 AST 31 U/L (14-36) 04/01/18 10:50 ALT 33 U/L (7-56) 04/01/18 10:50 Alkaline Phosphatase 69 U/L (38-126) 04/01/18 10:50 Total Protein 6.4 g/dL (5.8-8.3) 04/01/18 10:50 Albumin 4.2 g/dL (3.0-4.8) 04/01/18 10:50 Globulin 2.2 gm/dL 04/01/18 10:50 Albumin/Globulin Ratio 1.9 (1.1-1.8) H 04/01/18 10:50 Venous Blood Potassium 4.4 mmol/L (3.6-5.2) 04/01/18 10:50 Urine Color Yellow (YELLOW) 04/01/18 10:50 Urine Appearance Clear (CLEAR) 04/01/18 10:50 Urine pH 6.0 (4.7-8.0) 04/01/18 10:50 Ur Specific [place] >= 1.030 (1.005-1.035) 04/01/18 10:50 Urine Protein Trace mg/dL (<30 mg/dL) H 04/01/18 10:50 Urine Glucose (UA) Negative mg/dL (NEGATIVE) 04/01/18 10:50 Urine Ketones Negative mg/dL (NEGATIVE) 04/01/18 10:50 Urine Blood Negative (NEGATIVE) 04/01/18 10:50 Urine Nitrate Negative (NEGATIVE) 04/01/18 10:50 Urine Bilirubin Negative (NEGATIVE) 04/01/18 10:50 Urine Urobilinogen 0.2 E.U./dL (<1 E.U./dL) 04/01/18 10:50 Ur Leukocyte Esterase Negative Lisa/uL (NEGATIVE) 04/01/18 10:50 Urine RBC 0 - 2 /hpf (0-2) 04/01/18 10:50 Urine WBC 1 - 3 /hpf (0-6) 04/01/18 10:50 Ur Epithelial Cells 3 - 4 /hpf (0-5) 04/01/18 10:50 Urine Bacteria Small (NEG) 04/01/18 10:50 Fine Granular Casts 0 - 2 /hpf (0-2) 04/01/18 10:50 Coarse Granular Casts Trace /hpf (0-2) H 04/01/18 10:50 Urine Other Fiber 04/01/18 10:50 Blood Type B NEGATIVE 04/02/18 09:10 Blood Type Confirm B NEGATIVE 04/02/18 09:30 Antibody Screen Negative 04/02/18 09:10 BBK History Checked No verified bt 04/02/18 09:10 - Hospital Course Hospital Course: 72 yo F with PMH of lymphoma, HTN, HLD, asthma, c. diff, diverticulosis admitted for RLQ abdominal pain x 1 day, diarrhea, blood clots per rectum. CT abd/pelvis showed focal area of mural thickening involving the distal transverse colon hepatic flexure and proximal descending colon. Minimal inflammatory changes are seen in the adjacent fat planes. This is most consistent with colitis. There is diverticulosis of the sigmoid colon with mural thickening. Started on Protonix, Rocephin, Flagyl, on CLD. C diff stool studies negative. GI saw/evaluated pt with recs for completion of Abx x 10-14 days for colitis, to follow up as planned this month w/Dr. Plasencia, repeat colonoscopy in June, as planned. Pt started on home medications for HTN , HLD, Asthma with SCDs for DVT ppx. Pt with one more episode of blood per rectum while inpatient. Diarrhea resolved on hospital day 7. Patient stable and ready for discharge home with instructions for close follow up with GI as previously planned and to complete Abx as prescribed. Diagnoses: Colitis Asthma HTN HLD Blood per rectum anemia - Date & Time of H&P Date of H&P: 04/01/18 Time of H&P: 14:47 Discharge Exam - Head Exam Head Exam: NORMAL INSPECTION, NORMOCEPHALIC - Eye Exam Eye Exam: EOMI, Normal appearance - ENT Exam ENT Exam: Mucous Membranes Moist, Normal Exam - Neck Exam Neck exam: Full Rom, Normal Inspection - Respiratory Exam Respiratory Exam: Clear to PA & Lateral, NORMAL BREATHING PATTERN, UNREMARKABLE - Cardiovascular Exam Cardiovascular Exam: REGULAR RHYTHM, +S1, +S2 - GI/Abdominal Exam GI & Abdominal Exam: Normal Bowel Sounds, Soft, Unremarkable. absent: Distended , Firm, Guarding, Hernia, Tenderness - Extremities Exam Extremities exam: full ROM, normal inspection - Neurological Exam Neurological exam: Alert, CN II-XII Intact, Oriented x3 - Psychiatric Exam Psychiatric exam: Normal Affect, Normal Mood - Skin Skin Exam: Dry, Intact, Normal Color, Warm Discharge Plan - Discharge Medications Prescriptions: RX: Cefdinir [Omnicef] 300 mg PO BID #28 cap Metronidazole [Flagyl] 500 mg PO TID 14 Days tablet - Follow Up Plan Condition: STABLE Disposition: HOME/ ROUTINE Instructions: Diarrhea in Adolescents and Adults, Acute Abdominal Pain (DC), Acute Abdominal Pain (GEN) Additional Instructions: 1. Follow up with PMD within 1 week 2. Follow up with GI, Dr. Plasencia, within 1 week 3. Complete 14 day course of antibiotics (Metronidazole [Flagyl]) 4. Resume medications as prescribed 5. Return to ED if symptoms worsen Referrals: Felix Wills MD [Family Provider] - Jose Guadalupe Plasencia MD [Staff Provider] - <Milly Figueroa - Last Filed: 04/04/18 13:12> Provider - Provider Date of Admission: 04/01/18 13:33 Attending physician: Milly Figueroa MD Hospital Course - Lab Results Lab Results: Micro Results 04/01/18 14:00 Blood Blood Culture - Preliminary NO GROWTH AFTER 48 HOURS 04/01/18 13:58 Blood Blood Culture - Preliminary NO GROWTH AFTER 48 HOURS 04/01/18 14:00 Urine Urine Culture - Final Gram Positive Cocci 04/02/18 02:15 Stool C. difficile Antigen & Toxin A,B (M - Final Most Recent Lab Values WBC 4.9 10^3/ul (4.5-11.0) D 04/04/18 05:30 RBC 4.04 10^6/uL (3.5-6.1) 04/04/18 05:30 Hgb 11.1 g/dL (12.0-16.0) L 04/04/18 05:30 Hct 33.1 % (36.0-48.0) L 04/04/18 05:30 MCV 81.9 fl (80.0-105.0) 04/04/18 05:30 MCH 27.5 pg (25.0-35.0) 04/04/18 05:30 MCHC 33.5 g/dl (31.0-37.0) 04/04/18 05:30 RDW 14.0 % (11.5-14.5) 04/04/18 05:30 Plt Count 159 10^3/uL (120.0-450.0) 04/04/18 05:30 MPV 9.5 fl (7.0-11.0) 04/04/18 05:30 Gran % 61.9 % (50.0-68.0) 04/01/18 10:50 Lymph % (Auto) 27.7 % (22.0-35.0) 04/01/18 10:50 [place] % (Auto) 7.0 % (1.0-6.0) H 04/01/18 10:50 Eos % (Auto) 2.7 % (1.5-5.0) 04/01/18 10:50 Baso % (Auto) 0.7 % (0.0-3.0) 04/01/18 10:50 Gran # 4.98 (1.4-6.5) 04/01/18 10:50 Lymph # (Auto) 2.2 (1.2-3.4) 04/01/18 10:50 [place] # (Auto) 0.6 (0.1-0.6) 04/01/18 10:50 Eos # (Auto) 0.2 (0.0-0.7) 04/01/18 10:50 Baso # (Auto) 0.06 K/mm3 (0.0-2.0) 04/01/18 10:50 PT 11.1 SECONDS (9.4-12.5) 04/01/18 10:50 INR 0.97 (0.93-1.08) 04/01/18 10:50 APTT 27.8 Seconds (25.1-36.5) 04/01/18 10:50 pO2 34 mm/Hg (30-55) 04/01/18 10:50 VBG pH 7.35 (7.32-7.43) 04/01/18 10:50 VBG pCO2 48.0 (40-60) 04/01/18 10:50 VBG HCO3 26.5 mmol/l (21-28) 04/01/18 10:50 VBG Total CO2 28.0 mmol.L (22-28) 04/01/18 10:50 VBG O2 Sat (Calc) 65.0 % (40-65) 04/01/18 10:50 VBG Base Excess 0.3 mmol/L (0.0-2.0) 04/01/18 10:50 VBG Potassium 4.4 mmol/L (3.6-5.2) 04/01/18 10:50 Sodium 142.0 mmol/L (132-148) 04/01/18 10:50 Chloride 107.0 mmol/L (98-107) 04/01/18 10:50 Glucose 110 mg/dl (65-105) H 04/01/18 10:50 Lactate 1.2 mmol/L (0.7-2.1) 04/01/18 10:50 FiO2 21.0 % 04/01/18 10:50 Sodium 145 mmol/L (132-148) 04/04/18 05:30 Potassium 3.9 mmol/L (3.6-5.0) 04/04/18 05:30 Chloride 114 mmol/L (98-107) H 04/04/18 05:30 Carbon Dioxide 23 mmol/L (21-33) 04/04/18 05:30 Anion Gap 13 (10-20) 04/04/18 05:30 BUN 15 mg/dL (7-21) 04/04/18 05:30 Creatinine 0.6 mg/dl (0.7-1.2) L 04/04/18 05:30 Est GFR ( Amer) > 60 04/04/18 05:30 Est GFR (Non-Af Amer) > 60 04/04/18 05:30 POC Glucose (mg/dL) 98 mg/dL (65-110) 04/03/18 08:42 Random Glucose 88 mg/dL (70-110) 04/04/18 05:30 Calcium 8.4 mg/dL (8.4-10.5) 04/04/18 05:30 Iron 37 ug/dL (45-180) L 04/02/18 07:00 TIBC 280 ug/dL (265-497) 04/02/18 07:00 % Saturation 13 % (20-55) L 04/02/18 07:00 Ferritin 68.9 ng/mL 04/02/18 07:00 Total Bilirubin 0.7 mg/dL (0.2-1.3) 04/01/18 10:50 AST 31 U/L (14-36) 04/01/18 10:50 ALT 33 U/L (7-56) 04/01/18 10:50 Alkaline Phosphatase 69 U/L (38-126) 04/01/18 10:50 Total Protein 6.4 g/dL (5.8-8.3) 04/01/18 10:50 Albumin 4.2 g/dL (3.0-4.8) 04/01/18 10:50 Globulin 2.2 gm/dL 04/01/18 10:50 Albumin/Globulin Ratio 1.9 (1.1-1.8) H 04/01/18 10:50 Venous Blood Potassium 4.4 mmol/L (3.6-5.2) 04/01/18 10:50 Urine Color Yellow (YELLOW) 04/01/18 10:50 Urine Appearance Clear (CLEAR) 04/01/18 10:50 Urine pH 6.0 (4.7-8.0) 04/01/18 10:50 Ur Specific [place] >= 1.030 (1.005-1.035) 04/01/18 10:50 Urine Protein Trace mg/dL (<30 mg/dL) H 04/01/18 10:50 Urine Glucose (UA) Negative mg/dL (NEGATIVE) 04/01/18 10:50 Urine Ketones Negative mg/dL (NEGATIVE) 04/01/18 10:50 Urine Blood Negative (NEGATIVE) 04/01/18 10:50 Urine Nitrate Negative (NEGATIVE) 04/01/18 10:50 Urine Bilirubin Negative (NEGATIVE) 04/01/18 10:50 Urine Urobilinogen 0.2 E.U./dL (<1 E.U./dL) 04/01/18 10:50 Ur Leukocyte Esterase Negative Lisa/uL (NEGATIVE) 04/01/18 10:50 Urine RBC 0 - 2 /hpf (0-2) 04/01/18 10:50 Urine WBC 1 - 3 /hpf (0-6) 04/01/18 10:50 Ur Epithelial Cells 3 - 4 /hpf (0-5) 04/01/18 10:50 Urine Bacteria Small (NEG) 04/01/18 10:50 Fine Granular Casts 0 - 2 /hpf (0-2) 04/01/18 10:50 Coarse Granular Casts Trace /hpf (0-2) H 04/01/18 10:50 Urine Other Fiber 04/01/18 10:50 Blood Type B NEGATIVE 04/02/18 09:10 Blood Type Confirm B NEGATIVE 04/02/18 09:30 Antibody Screen Negative 04/02/18 09:10 BBK History Checked No verified bt 04/02/18 09:10 Attending/Attestation - Attestation I have personally seen and examined this patient.: Yes I have fully participated in the care of the patient.: Yes I have reviewed all pertinent clinical information, including history, physical exam and plan: Yes Notes (Text): 04/04/18 13:09 72 year old female with past medical history of hypertension and asthma who presented with abdominal pain. CT abd/pelvis showed colitis and patient was started on iv antibiotics. Her diarrhea and pain improved and she is tolerating diet. She received iv iron for iron deficiency anemia. Patient is discharged home to follow up with her pmd. Follow up with GI. Family is at bedside and questions were answered. Milly Figueroa MD Hospitalist.
[2018-04-04] MEDS ORDERED: Pantoprazole 40 mg EC Tab PO SCH (18:00)
== END 2018-04-04 15:37 | disposition home or self-care (01) | DRG 392 ==
LOC: ED 09:56 → ERH 13:33 → 3RNO 16:41
PROVIDERS: ADMIT Internal Medicine; ATTEND Internal Medicine
DX: K52.9 Noninfective gastroenteritis and colitis, unspecified (principal); K62.5 Hemorrhage of anus and rectum; K57.30 Diverticulosis of large intestine without perforation or abscess without bleeding; K29.60 Other gastritis without bleeding; J45.909 Unspecified asthma, uncomplicated; I12.9 Hypertensive chronic kidney disease with stage 1 through stage 4 chronic kidney disease, or unspecified chronic kidney disease; N18.9 Chronic kidney disease, unspecified; E78.5 Hyperlipidemia, unspecified; D50.9 Iron deficiency anemia, unspecified; Z85.72 Personal history of non-Hodgkin lymphomas; Z88.5 Allergy status to narcotic agent; Z86.19 Personal history of other infectious and parasitic diseases

== ENCOUNTER 2018-05-10 07:30 | Day surgery (SDC) | payer MEDICAID, MEDICARE ==
[2018-04-21 09:37] VITALS: BMI 25.1
[2018-05-10 08:00] VITALS: TEMP 98
[2018-05-10] MEDS ORDERED: ePHEDrine 50 mg/ml Inj ONE (08:43)
[2018-05-10] MEDS ORDERED: Propofol 10 mg/ml Inj (20 ML) ONE (08:43)
[2018-05-10] MEDS ORDERED: Sodium Chloride 0.9% 1,000 ML IV SCH (08:45)
[2018-05-10 09:46] VITALS: O2SAT 98
[2018-05-10 10:30] VITALS: BP 127/64; PULSE 69; RESP 18
== END 2018-05-10 11:05 | disposition home or self-care (01) ==
LOC: ENDO 07:30
PROVIDERS: ATTEND Internal Medicine
DX: K63.5 Polyp of colon (principal); K57.90 Diverticulosis of intestine, part unspecified, without perforation or abscess without bleeding; K64.8 Other hemorrhoids; K62.5 Hemorrhage of anus and rectum
CPT/HCPCS: 45381; 45385; 45388; 88305; J2405; J2704; J7030; J7040

== ENCOUNTER 2018-08-12 11:50 | Inpatient (IN) | payer MEDICAID, MEDICARE ==
[2018-08-12 11:55] VITALS: BMI 25.4
--- NOTE | 2018-08-12 12:16 | ED PDOC ---
Arrival/HPI - General Historian: Patient - History of Present Illness Time/Duration: > month Symptom Onset: Other Symptom Course: Unchanged Quality: Other Severity Level: Mild <Chance Scott - Last Filed: 08/12/18 14:53> <Justo Villagomez - Last Filed: 08/12/18 15:59> - General Chief Complaint: Cough, Cold, Congestion Time Seen by Provider: 08/12/18 12:01 - History of Present Illness Narrative History of Present Illness (Text): Patient is a 72 year old female with PMH of lymphoma, HTN, HLD, asthma, c. diff , diverticulosis presenting to the ED with a cough. Patient states that the cough started 3 months ago and has been persisting despite antibiotics treatment. She describes the cough to be dry, non-productive, and constant. She states that is is somewhat worse at night and is making her difficult to sleep. She also admits to have no appetite and had lost 5 pounds in the past 3 months. Patient denies hemoptysis, night sweats, fevers, or recent travels. She further denies chest pain, shortness of breath, abdominal pain, or urinary symptoms. Dr. Wills (Chance Scott) Past Medical History - Provider Review Nursing Documentation Reviewed: Yes - Travel History Have you recently traveled outside [place] w/in the past 3 mons?: No - Infectious Disease Hx of Infectious Diseases: None - Tetanus Immunization Tetanus Immunization: Unknown - Cardiac Hx Cardiac Disorders: Yes Hx Hypertension: Yes - Pulmonary Hx Respiratory Disorders: Yes Hx Asthma: Yes - Neurological Hx Paralysis: No - HEENT Hx Cataracts: Yes (b/l [id number]) - Renal Hx Renal Disorder: Yes Hx Kidney Stones: Yes - Endocrine/Metabolic Hx Endocrine Disorders: (pre diabetes no meds) - Hematological/Oncological Hx Blood Transfusions: No - Integumentary Other/Comment: SCARRING TO BACK EXCISION OF LIPOMA TO BACK, scar to right abd due to pt having her r hand post op lying on r abd causing skin irritation - Musculoskeletal/Rheumatological Hx Musculoskeletal Disorders: Yes (OSTEOARTHRITIS) - Gastrointestinal Other/Comment: GASTRITIS,DIVERTICULITIS,C DIFF 11/25/15 - Genitourinary/Gynecological Hx Genitourinary Disorders: No - Psychiatric Hx Emotional Abuse: No Hx Physical Abuse: No Hx Substance Use: No - Past Surgical History Past Surgical History: Non-Contributing - Surgical History Hx Amputation: Yes (right hand fingers 4 and 5 dog bite) Other/Comment: right 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 with skin graft due to dog bite, mass on back removed 2011 and 2013 - Anesthesia Hx Anesthesia Reactions: No Hx Malignant Hyperthermia: No - Suicidal Assessment Feels Threatened In Home Enviroment: No <Chance Scott - Last Filed: 08/12/18 14:53> Family/Social History - Physician Review Nursing Documentation Reviewed: Yes Family/Social History: No Known Family HX Smoking Status: Never Smoked Hx Alcohol Use: No Hx Substance Use: No <Chance Scott - Last Filed: 08/12/18 14:53> Allergies/Home Meds <Chance Scott - Last Filed: 08/12/18 14:53> <Justo Villagomez - Last Filed: 08/12/18 15:59> Allergies/Adverse Reactions: Allergies alendronate sodium [From Fosamax] Allergy (Intermediate, Verified 04/01/18 10:08 ) NAUSEA/VOMTING ciprofloxacin Allergy (Intermediate, Verified 04/01/18 10:08) NAUSEA/VOMITING codeine Allergy (Intermediate, Verified 04/01/18 10:08) DIZZINESS lisinopril Allergy (Unknown, Verified 04/01/18 10:08) UNKNOWN clarithromycin Allergy (Verified 04/01/18 10:08) unknown methimazole Allergy (Verified 04/01/18 10:08) NAUSEA sertraline Allergy (Verified 04/01/18 10:08) unknown Home Medications: Home Meds Medication Instructions Recorded Confirmed Atorvastatin Calcium [Lipitor] 40 mg PO QPM 03/28/12 08/12/18 Montelukast [Singulair] 10 mg PO QPM 03/28/12 08/12/18 Calcium Carb, Citrate/Vit D3 1 each PO DAILY 06/05/16 08/12/18 [Calcium + D3 ER Tablet] Aspirin [Aspirin Chewable] 81 mg PO DAILY 01/18/17 08/12/18 Atenolol [Tenormin] 25 mg PO BID 01/18/17 08/12/18 Albuterol Sulfate [Ventolin Hfa] 1 puff IH PRN PRN 04/01/18 08/12/18 Hydrochlorothiazide [Microzide] 12.5 mg PO DAILY 04/21/18 08/12/18 Benzonatate [Tessalon Perle] 1 cap PO TID 08/12/18 08/12/18 Fluticasone Propionate [Flonase 1 spray ALYSE DAILY 08/12/18 08/12/18 Allergy Relief] Fluticasone/Vilanterol [Breo 1 puff IH DAILY 08/12/18 08/12/18 Ellipta 200-25 Mcg INH] Umeclidinium [place] [Incruse 1 puff IH DAILY 08/12/18 08/12/18 Ellipta] Review of Systems - Physician Review All systems were reviewed & negative as marked: Yes - Review of Systems Constitutional: Normal. absent: Fevers, Night Sweats Eyes: Normal ENT: Normal Respiratory: Cough. absent: SOB, Sputum, Wheezing Cardiovascular: Normal. absent: Chest Pain Gastrointestinal: Normal. absent: Abdominal Pain, Constipation, Diarrhea, Nausea, Vomiting Genitourinary Female: Normal. absent: Dysuria, Frequency, Hematuria Musculoskeletal: Normal Skin: Normal. absent: Rash, Pruritis Neurological: Headache. absent: Dizziness Endocrine: Normal Hemo/Lymphatic: Normal Psychiatric: Normal. absent: Anxiety, Depression <Chance Scott - Last Filed: 08/12/18 14:53> Physical Exam Vital Signs Reviewed: Yes Temperature: Afebrile Blood Pressure: Normal Pulse: Regular Respiratory Rate: Normal Appearance: Positive for: Well-Appearing, Non-Toxic, Comfortable Pain Distress: None Mental Status: Positive for: Alert and Oriented X 3 - Systems Exam Head: Present: Atraumatic, Normocephalic Pupils: Present: PERRL Extroacular Muscles: Present: EOMI Conjunctiva: Present: Normal Mouth: Present: Moist Mucous Membranes Pharnyx: Present: Normal. No: ERYTHEMA, EXUDATE, Uvular Deviation Neck: Present: Normal Range of Motion Respiratory/Chest: Present: Clear to Auscultation, Good Air Exchange. No: Respiratory Distress, Accessory Muscle Use Cardiovascular: Present: Irregular Rhythm. No: Murmurs, Rub, Gallop Abdomen: No: Tenderness, Distention, Peritoneal Signs Back: Present: Normal Inspection Upper Extremity: Present: Normal Inspection. No: Cyanosis, Edema Lower Extremity: Present: Normal Inspection. No: Edema Neurological: Present: GCS=15, CN II-XII Intact, Speech Normal Skin: Present: Warm, Dry, Normal Color. No: Rashes Psychiatric: Present: Alert, Oriented x 3, Normal Insight, Normal Concentration <Chance Scott - Last Filed: 08/12/18 14:53> Vital Signs Temp Pulse Resp BP Pulse Ox 08/12/18 15:37 98.0 F 83 18 121/78 97 08/12/18 12:08 98.2 F 86 18 119/88 96 Medical Decision Making <Chance Scott - Last Filed: 08/12/18 14:53> <Justo Villagomez - Last Filed: 08/12/18 15:59> ED Course and Treatment: Impression: Patient is a 72 year old female presenting to the ED with cough for 3 months. Differential Diagnosis included but are not limited to: - Viral infection - Pneumonia - Tuberculosis Plan: -- CBC -- CMP -- Cardiac isoenzymes -- EKG -- CXR -- BNP -- PTT, INR -- Blood culture -- Urine culture -- Influenza A, B -- UA -- VBG -- Duonebs Progress Notes: 08/12/18 13:06 - Patient is still coughing, duonebs ordered. - EKG: NSR at 71 bpm with premature atrial complexes 08/12/18 13:49 - BNP: 1290 - Troponin: <0.01 - Influenza: Negative for influenza A and B. - CXR: Minimal bibasilar infiltrate or atelectasis 08/12/18 14:54 - Patient reassessed, patent is still coughing. She has agreed to be admitted to the hospital. Patient is stable. (Chance Scott) 08/12/18 13:04 Patient Seen with Resident: In agreement with resident note which contains more details about the patient. Patient seen and evaluated with resident. Came up with plan and treatment together. 08/12/18 15:00 Patient's Chest X-ray suggests pneumonia. Patient is currently afebrile and cardiovascularly stable. Mild wheezing noted on re-examination. Patient will be admitted to hospitalist's service for failure of outpatient treatment associated with abnormal Chest X-ray possible pneumonia. Patient's allergies have been reviewed and reports allergies to ciprofloxacin and clarithromycin. Based on allergies, patient will be administered rocephin, nebulizers as needed. Hospitalist accepts admission, covering for PMD Dr. Earnest Wills. PATIENT ALLERGIC TO CIPRO AND CLARITHROMYCIN. (Justo Villagomez) - Lab Interpretations Lab Results: 08/12/18 12:50 08/12/18 12:50 Lab Results 08/12/18 12:50: Sodium 140, Chloride 105, Potassium 4.9, Carbon Dioxide 27, Anion Gap 13, BUN 21, Creatinine 0.8, Est GFR ( Amer) > 60, Est GFR (Non- Af Amer) > 60, Random Glucose 110, Calcium 9.5, Total Bilirubin 0.7, AST 37 H, ALT 18, Alkaline Phosphatase 62, Lactate Dehydrogenase 600, Total Creatine Kinase 36, Troponin I < 0.01 D, NT-Pro-B Natriuret Pep 1290 H, Total Protein 6.9, Albumin 3.9, Globulin 3.1, Albumin/Globulin Ratio 1.3 08/12/18 12:50: pO2 42, VBG pH 7.34, VBG pCO2 49.0, VBG HCO3 26.4, VBG Total CO2 27.9, VBG O2 Sat (Calc) 79.3 H, VBG Base Excess 0.0, VBG Potassium 4.7, Sodium 138.0, Chloride 106.0, Glucose 111 H, Lactate 1.2, FiO2 21.0, Venous Blood Potassium 4.7 08/12/18 12:50: PT 12.1, INR 1.06, APTT 27.7 08/12/18 12:50: Influenza Typ A,B (EIA) Negative for flu a/b 08/12/18 12:50: WBC 8.5 D, RBC 4.24, Hgb 12.2, Hct 36.7, MCV 86.6 D, MCH 28.8 , MCHC 33.2, RDW 13.2, Plt Count 286, MPV 9.7, Gran % 59.9, Lymph % (Auto) 27.9 , [place] % (Auto) 9.4 H, Eos % (Auto) 2.6, Baso % (Auto) 0.2, Gran # 5.08, Lymph # (Auto) 2.4, [place] # (Auto) 0.8 H, Eos # (Auto) 0.2, Baso # (Auto) 0.02 - RAD Interpretation Radiology Orders: 08/12/18 12:28 CHEST TWO VIEWS (PA/LAT) [RAD] Stat - Medication Orders Current Medication Orders: Discontinued Medications Albuterol/Ipratropium (Duoneb 3 Mg/0.5 Mg (3 Ml) Ud) 3 ml IH STAT STA Stop: 08/12/18 12:53 Last Admin: 08/12/18 13:10 Dose: 3 ml Albuterol/Ipratropium (Duoneb 3 Mg/0.5 Mg (3 Ml) Ud) 3 ml IH STAT STA Stop: 08/12/18 14:42 Last Admin: 08/12/18 15:46 Dose: 3 ml Ceftriaxone Sodium (Rocephin 1 Gram Ivpb) 1 gm in 100 mls @ 200 mls/hr IVPB ONCE STA PRN Reason: Protocol Stop: 08/12/18 15:09 Last Admin: 08/12/18 15:45 Dose: 200 mls/hr eMAR Start Stop Document 08/12/18 15:45 [email or web address] (Rec: 08/12/18 15:45 [email or web address] [id number]) Intravenous Solution Start Date 08/12/18 Start Time 15:45 <Chance Scott - Last Filed: 08/12/18 14:53> - PA / VESSEL LINER / Resident Statement MD/DO has reviewed & agrees with the documentation as recorded. MD/DO has examined the patient and agrees with the treatment plan. - Scribe Statement The provider has reviewed the documentation as recorded by the Scribe <Justo Villagomez - Last Filed: 08/12/18 15:59> - Scribe Statement Cleo Gutiérrez All medical record entries made by the Scribe were at my direction and personally dictated by me. I have reviewed the chart and agree that the record accurately reflects my personal performance of the history, physical exam, medical decision making, and the department course for this patient. I have also personally directed, reviewed, and agree with the discharge instructions and disposition. (Justo Villagomez) Disposition/Present on Arrival - Present on Arrival Any Indicators Present on Arrival: No History of DVT/PE: No History of Uncontrolled Diabetes: No Urinary Catheter: No History of Decub. Ulcer: No History Surgical Site Infection Following: None - Disposition Have Diagnosis and Disposition been Completed?: Yes Patient Plan: Admission <Chance Scott - Last Filed: 08/12/18 14:53> - Disposition Disposition Time: 15:00 <Justo Villagomez - Last Filed: 08/12/18 15:59> - Disposition Diagnosis: Cough, Pneumonia Disposition: HOSPITALIZED Patient Problems: Current Active Problems Problem Status Onset Cough Acute Condition: STABLE
[2018-08-12] MEDS ORDERED: Albuterol-Ipratrop 3 mg / 0.5 (3 ml) UD IH STA ×2 (12:52→14:41)
[2018-08-12 13:11] LABS: VENOUS BLOOD GAS PO2 42 mm/Hg (30-55); VENOUS BLOOD PH 7.34 (7.32-7.43)
[2018-08-12 13:13] LABS: BASO # 0.02 K/mm3 (0.0-2.0); BASO % 0.2 % (0.0-3.0); EOS # 0.2 (0.0-0.7); EOS % 2.6 % (1.5-5.0); GRAN # 5.08 (1.4-6.5); GRAN % 59.9 % (50.0-68.0); HEMOGLOBIN 12.2 g/dL (12.0-16.0); LYMPH # 2.4 (1.2-3.4); LYMPH % 27.9 % (22.0-35.0); MEAN CELL VOLUME 86.6 fl (80.0-105.0); MEAN CORPUSCULAR HEMOGLOBIN 28.8 pg (25.0-35.0); MEAN CORPUSCULAR HGB CONC 33.2 g/dl (31.0-37.0); MEAN PLATELET VOLUME 9.7 fl (7.0-11.0); MONO # 0.8 (0.1-0.6); MONO % 9.4 % (1.0-6.0); RBC 4.24 10^6/uL (3.5-6.1); RED CELL DISTRIBUTION WIDTH 13.2 % (11.5-14.5); WHITE BLOOD COUNT 8.5 10^3/ul (4.5-11.0)
[2018-08-12 13:17] LABS: INR 1.06; PARTIAL THROMBOPLASTIN TIME 27.7 Seconds (25.1-36.5); PROTHROMBIN TIME 12.1 SECONDS (9.4-12.5)
[2018-08-12 13:19] LABS: ALB/GLOB RATIO 1.3 (1.1-1.8); ALBUMIN 3.9 g/dL (3.0-4.8); ALT/SGPT 18 U/L (7-56); AST/SGOT 37 U/L (14-36); BLOOD UREA NITROGEN 21 mg/dL (7-21); CALCIUM 9.5 mg/dL (8.4-10.5); GFR NON-AFRICAN AMERICAN > 60
[2018-08-12 13:30] LABS: B-TYPE NATRIURETIC PEPTIDE 1290 pg/mL (0-450); TROPONIN I < 0.01 ng/mL
--- NOTE | 2018-08-12 13:52 | RAD ---
Date of service: 08/12/2018 HISTORY: cough, sob COMPARISON: 04/01/2018 TECHNIQUE: Chest PA and lateral FINDINGS: LUNGS: Minimal bibasilar infiltrates or atelectasis PLEURA: No significant pleural effusion identified. No pneumothorax apparent. CARDIOVASCULAR: Normal. OSSEOUS STRUCTURES: No significant abnormalities. VISUALIZED UPPER ABDOMEN: Normal. OTHER FINDINGS: None. IMPRESSION: Minimal bibasilar infiltrates or atelectasis
[2018-08-12] MEDS ORDERED: cefTRIAXone 1 gm 1 GM/100 ML BAG IVPB STA (14:40)
--- NOTE | 2018-08-12 16:15 | CP.PCM.HP ---
<Gray Pereyra - Last Filed: 08/12/18 21:46> History of Present Illness - History of Present Illness History of Present Illness: Gray Pereyra PGY1 History and Physical for Dr Figueroa. Pt is a 72 yo female with a PMH of HTN, HLD, asthma, C. diff, lymphoma, and diverticulosis who presents to the ED with a cough. She reports having the cough for the past 3 months. She reports a productive cough with with sputum. Pt reports having tooth and gum pain. Pt reports pain while coughing which makes it difficult for her to sleep. Pt reports reports that she has been forgetful for the past few days. She states that since Wednesday she has experienced malaise and has not felt well. Pt reports urinary symptoms such as frequency, but denies burning, malodor, blood in the urine. Pt denies taking any antibiotics at this time. A 12 point ROS was obtained and added to the HPI where appropriate. PMH: HTN, HLD, asthma, C. diff, lymphoma, and diverticulosis PSH: cholecystectomy, hysterectomy, and lipoma removal SH: denies tobacco, drinks only socially, denies drug use FH: HLD Allergies: alendronate, cipro, codeine, lisinopril, clarithromycin, methimazole , sertraline, donepizil PMD: Wills Present on Admission - Present on Admission Any Indicators Present on Admission: No Past Patient History - Infectious Disease Hx of Infectious Diseases: None - Tetanus Immunizations Tetanus Immunization: Unknown - Past Medical History & Family History Past Medical History?: Yes - Past Social History Smoking Status: Never Smoked - CARDIAC Hx Cardiac Disorders: Yes Hx Hypertension: Yes - PULMONARY Hx Respiratory Disorders: Yes Hx Asthma: Yes - NEUROLOGICAL Hx Paralysis: No - HEENT Hx Cataracts: Yes (b/l [id number]) - RENAL Hx Chronic Kidney Disease: Yes Hx Kidney Stones: Yes - ENDOCRINE/METABOLIC Hx Endocrine Disorders: (pre diabetes no meds) - HEMATOLOGICAL/ONCOLOGICAL Hx Blood Transfusions: No - INTEGUMENTARY Other/Comment: SCARRING TO BACK EXCISION OF LIPOMA TO BACK, scar to right abd due to pt having her r hand post op lying on r abd causing skin irritation - MUSCULOSKELETAL/RHEUMATOLOGICAL Hx Musculoskeletal Disorders: Yes (OSTEOARTHRITIS) - GASTROINTESTINAL Other/Comment: GASTRITIS,DIVERTICULITIS,C DIFF 11/25/15 - GENITOURINARY/GYNECOLOGICAL Hx Genitourinary Disorders: No - PSYCHIATRIC Hx Emotional Abuse: No Hx Physical Abuse: No Hx Substance Use: No - SURGICAL HISTORY Hx Amputation: Yes (right hand fingers 4 and 5 dog bite) Other/Comment: right 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 with skin graft due to dog bite, mass on back removed 2011 and 2013 - ANESTHESIA Hx Anesthesia Reactions: No Hx Malignant Hyperthermia: No Meds Allergies/Adverse Reactions: Allergies Allergy/AdvReac Type Severity Reaction Status Date / Time alendronate sodium Allergy Intermediate NAUSEA/VOMT Verified 08/12/18 18:36 [From Fosamax] ING ciprofloxacin Allergy Intermediate NAUSEA/VOMI Verified 08/12/18 18:36 TING codeine Allergy Intermediate DIZZINESS Verified 08/12/18 18:36 lisinopril Allergy Unknown UNKNOWN Verified 08/12/18 18:36 clarithromycin Allergy unknown Verified 08/12/18 18:36 methimazole Allergy NAUSEA Verified 08/12/18 18:36 sertraline Allergy unknown Verified 08/12/18 18:36 Physical Exam - Constitutional Appears: No Acute Distress - Head Exam Head Exam: ATRAUMATIC, NORMOCEPHALIC - Respiratory Exam Respiratory Exam: Clear to Auscultation Bilateral, NORMAL BREATHING PATTERN. absent: Accessory Muscle Use, Wheezes, Respiratory Distress, Stridor - Cardiovascular Exam Cardiovascular Exam: REGULAR RHYTHM, +S1, +S2. absent: Diastolic murmur - GI/Abdominal Exam GI & Abdominal Exam: Normal Bowel Sounds, Soft - Extremities Exam Extremities exam: Positive for: normal inspection. Negative for: calf tenderness, pedal edema - Neurological Exam Neurological exam: Alert, Oriented x3 - Psychiatric Exam Psychiatric exam: Normal Affect, Normal Mood - Skin Skin Exam: Dry, Normal Color, Warm Results - Vital Signs Recent Vital Signs: Last Vital Signs Temp 98.0 F 08/12/18 15:37 Pulse 83 08/12/18 15:37 Resp 18 08/12/18 15:37 BP 121/78 08/12/18 15:37 Pulse Ox 97 08/12/18 15:37 - Labs Result Diagrams: 08/12/18 19:55 08/12/18 12:50 Assessment & Plan - Assessment and Plan (Free Text) Assessment: Pt is a 72 year old female with a PMH of HTN, HLD, asthma, C. diff, lymphoma, and diverticulosis who presents to the ED with a cough. She reports having the cough for the past 3 months. Plan: Chronic Cough, 3 months - CXR: Minimal bibasilar - follow up Chest CT - procal - azithromax 500 IV - Ceftriaxone Ig IV push Confusion - Blood and urine cx - UA - Head CT without contrast Asthma - duoneb prn HTN - continue home meds Ppx - protonix - SCDs Pt seen, examined, assessment, plan discussed with Dr. Figueroa. Gray Pereyra PGY I - Date & Time Date: 08/12/18 Time: 19:00 <Milly Figueroa - Last Filed: 08/13/18 08:33> Results - Vital Signs Recent Vital Signs: Last Vital Signs Temp 98.3 F 08/12/18 23:08 Pulse 75 08/12/18 23:08 Resp 20 08/12/18 23:08 BP 145/60 08/12/18 23:08 Pulse Ox 93 L 08/12/18 23:08 - Labs Result Diagrams: 08/13/18 06:15 08/13/18 06:15 Labs: Laboratory Results - last 24 hr 08/12/18 08/12/18 08/13/18 19:55 19:55 06:15 WBC 8.2 RBC 4.12 Hgb 11.7 L Hct 35.3 L MCV 85.7 MCH 28.4 MCHC 33.1 RDW 13.1 Plt Count 259 MPV 9.1 Gran % 57.2 Lymph % (Auto) 32.7 [place] % (Auto) 6.7 H Eos % (Auto) 3.2 Baso % (Auto) 0.2 Gran # 4.68 Lymph # (Auto) 2.7 [place] # (Auto) 0.6 Eos # (Auto) 0.3 Baso # (Auto) 0.02 Sodium 140 Potassium 4.0 Chloride 106 Carbon Dioxide 25 Anion Gap 13 BUN 15 Creatinine 0.7 Est GFR ( Amer) > 60 Est GFR (Non-Af Amer) > 60 Random Glucose 99 Calcium 8.8 Total Bilirubin 0.6 AST 29 ALT 22 Alkaline Phosphatase 67 NT-Pro-B Natriuret Pep 1340 H Total Protein 6.6 Albumin 3.8 Globulin 2.8 Albumin/Globulin Ratio 1.3 Urine Color Urine Appearance Urine pH Ur Specific [place] Urine Protein Urine Glucose (UA) Urine Ketones Urine Blood Urine Nitrate Urine Bilirubin Urine Urobilinogen Ur Leukocyte Esterase Urine RBC Urine WBC Ur Epithelial Cells 08/13/18 08/13/18 06:15 06:20 WBC 5.5 D RBC 4.27 Hgb 12.1 Hct 36.9 MCV 86.4 MCH 28.3 MCHC 32.8 RDW 13.3 Plt Count 261 MPV 9.8 Gran % 45.6 L Lymph % (Auto) 38.9 H [place] % (Auto) 9.7 H Eos % (Auto) 5.3 H Baso % (Auto) 0.5 Gran # 2.49 Lymph # (Auto) 2.1 [place] # (Auto) 0.5 Eos # (Auto) 0.3 Baso # (Auto) 0.03 Sodium Potassium Chloride Carbon Dioxide Anion Gap BUN Creatinine Est GFR ( Amer) Est GFR (Non-Af Amer) Random Glucose Calcium Total Bilirubin AST ALT Alkaline Phosphatase NT-Pro-B Natriuret Pep Total Protein Albumin Globulin Albumin/Globulin Ratio Urine Color Yellow Urine Appearance Sl cloudy Urine pH 6.0 Ur Specific [place] 1.020 Urine Protein Negative Urine Glucose (UA) Negative Urine Ketones Negative Urine Blood Negative Urine Nitrate Negative Urine Bilirubin Negative Urine Urobilinogen 0.2 Ur Leukocyte Esterase Trace H Urine RBC Negative Urine WBC 2 - 5 Ur Epithelial Cells 0 - 2 Attending/Attestation - Attestation I have personally seen and examined this patient.: Yes I have fully participated in the care of the patient.: Yes I have reviewed all pertinent clinical information: Yes Notes (Text): 08/12/18 72 year old female with past medical history of hypertension and asthma who presents with chronic cough for 3 months. CXR showed minimal bibasilar infiltrates or atelectasis. Will obtain CT chest to rule out pneumonia. Continue with duonebs prn for mild intermittent asthma. Continue with antibiotics. Procalcitonin is ordered. Patient denies heartburn or GERD symptoms. Patient also reports memory issues, forgetfulness. CT head is ordered. Milly Figueroa MD Hospitalist.
--- NOTE | 2018-08-12 17:31 | CARD ---
APPROVED REPORT Date of service: 08/12/2018 EKG Measurement Heart [id number] <Conclusion> Sinus rhythm with premature atrial complexes Otherwise normal ECG
[2018-08-12 20:04] LABS: BASO # 0.02 K/mm3 (0.0-2.0); BASO % 0.2 % (0.0-3.0); EOS # 0.3 (0.0-0.7); EOS % 3.2 % (1.5-5.0); GRAN # 4.68 (1.4-6.5); GRAN % 57.2 % (50.0-68.0); HEMOGLOBIN 11.7 g/dL (12.0-16.0); LYMPH # 2.7 (1.2-3.4); LYMPH % 32.7 % (22.0-35.0); MEAN CELL VOLUME 85.7 fl (80.0-105.0); MEAN CORPUSCULAR HEMOGLOBIN 28.4 pg (25.0-35.0); MEAN CORPUSCULAR HGB CONC 33.1 g/dl (31.0-37.0); MEAN PLATELET VOLUME 9.1 fl (7.0-11.0); MONO # 0.6 (0.1-0.6); MONO % 6.7 % (1.0-6.0); RBC 4.12 10^6/uL (3.5-6.1); RED CELL DISTRIBUTION WIDTH 13.1 % (11.5-14.5); WHITE BLOOD COUNT 8.2 10^3/ul (4.5-11.0)
[2018-08-12] MEDS: Albuterol-Ipratrop 3 mg / 0.5 (3 ml) UD IH SCH (20:18)
[2018-08-12] MEDS ORDERED: Pneumococcal 23-Valent Vaccine IM ONE (22:01)
[2018-08-12] MEDS ORDERED: Benzocaine/Menthol (Cepacol) Lozenge MT STA (22:30)
[2018-08-13] MEDS: Albuterol-Ipratrop 3 mg / 0.5 (3 ml) UD IH SCH ×4 (01:18→20:04)
[2018-08-13] MEDS: Pantoprazole 40 mg EC Tab PO SCH (05:43)
[2018-08-13] MEDS ORDERED: Pantoprazole 40mg/100mL NS 40 MG/100 ML BAG IVPB SCH (06:00)
[2018-08-13 07:18] LABS: BASO # 0.03 K/mm3 (0.0-2.0); BASO % 0.5 % (0.0-3.0); EOS # 0.3 (0.0-0.7); EOS % 5.3 % (1.5-5.0); GRAN # 2.49 (1.4-6.5); GRAN % 45.6 % (50.0-68.0); HEMOGLOBIN 12.1 g/dL (12.0-16.0); LYMPH # 2.1 (1.2-3.4); LYMPH % 38.9 % (22.0-35.0); MEAN CELL VOLUME 86.4 fl (80.0-105.0); MEAN CORPUSCULAR HEMOGLOBIN 28.3 pg (25.0-35.0); MEAN CORPUSCULAR HGB CONC 32.8 g/dl (31.0-37.0); MEAN PLATELET VOLUME 9.8 fl (7.0-11.0); MONO # 0.5 (0.1-0.6); MONO % 9.7 % (1.0-6.0); RBC 4.27 10^6/uL (3.5-6.1); RED CELL DISTRIBUTION WIDTH 13.3 % (11.5-14.5); WHITE BLOOD COUNT 5.5 10^3/ul (4.5-11.0)
[2018-08-13 07:34] LABS: URINE APPEARANCE SL CLOUDY (CLEAR); URINE BILIRUBIN NEGATIVE (NEGATIVE); URINE BLOOD NEGATIVE (NEGATIVE); URINE COLOR YELLOW (YELLOW); URINE GLUCOSE (UA) NEGATIVE (NEGATIVE); URINE LEUKOCYTE ESTERASE TRACE Leu/uL (NEGATIVE); URINE PROTEIN NEGATIVE mg/dL (<30 mg/dL); URINE UROBILINOGEN 0.2 E.U./dL (<1 E.U./dL)
[2018-08-13 07:51] LABS: ALB/GLOB RATIO 1.3 (1.1-1.8); ALBUMIN 3.8 g/dL (3.0-4.8); ALT/SGPT 22 U/L (7-56); AST/SGOT 29 U/L (14-36); BLOOD UREA NITROGEN 15 mg/dL (7-21); CALCIUM 8.8 mg/dL (8.4-10.5); GFR NON-AFRICAN AMERICAN > 60
[2018-08-13 08:04] LABS: URINE EPITHELIAL CELLS 0 - 2 /hpf (0-5); URINE RBC NEGATIVE /hpf (0-2)
[2018-08-13] MEDS: cefTRIAXone 1 gm 1 GM/100 ML BAG IVPB SCH (10:11)
[2018-08-13] MEDS: Azithromycin 500MG/NS 250ml 500 MG/250 ML BAG IVPB SCH (11:14)
--- NOTE | 2018-08-13 20:36 | CP.PCM.PN ---
<Kenny Rodriguez - Last Filed: 08/14/18 00:55> Subjective - Date & Time of Evaluation Date of Evaluation: 08/13/18 Time of Evaluation: 20:36 - Subjective Subjective: Internal Medicine Progress Note (Hospitalist): William PGY2 Patient seen and assessed at bedside. No acute events overnight. Patient reports that her cough and SOB are improved. Patient currently without further complaints including fevers, chills, headache, chest pain, abdominal pain, N/V/D /C, changes in urine output and any numbness/tingling/weakness of any extremity. Objective - Vital Signs/Intake and Output Vital Signs (last 24 hours): Temp Pulse Resp BP Pulse Ox 98.7 F 83 17 127/73 93 L 08/13/18 14:00 08/13/18 14:00 08/13/18 14:00 08/13/18 14:00 08/13/18 14:00 Intake and Output: 08/13/18 08/14/18 18:59 06:59 Intake Total 540 Balance 540 - Medications Medications: Current Medications Albuterol/Ipratropium (Duoneb 3 Mg/0.5 Mg (3 Ml) Ud) 3 ml IH [id number] [facility] Last Admin: 08/13/18 20:04 Dose: 3 ml Azithromycin (Zithromax 500mg In Ns) 500 mg in 250 mls @ 167 mls/hr IVPB DAILY [facility] PRN Reason: Protocol Last Admin: 08/13/18 11:14 Dose: 167 mls/hr Ceftriaxone Sodium (Rocephin 1 Gram Ivpb) 1 gm in 100 mls @ 100 mls/hr IVPB DAILY [facility] PRN Reason: Protocol Last Admin: 08/13/18 10:11 Dose: 100 mls/hr Pantoprazole Sodium (Protonix Ec Tab) 40 mg PO 0600 [facility] Last Admin: 08/13/18 05:43 Dose: 40 mg - Labs Labs: 08/13/18 06:15 08/13/18 06:15 PT 12.1 SECONDS (9.4-12.5) 08/12/18 12:50 INR 1.06 08/12/18 12:50 APTT 27.7 Seconds (25.1-36.5) 08/12/18 12:50 - Constitutional Appears: Non-toxic, No Acute Distress - Head Exam Head Exam: ATRAUMATIC, NORMOCEPHALIC - Eye Exam Eye Exam: EOMI - ENT Exam ENT Exam: Mucous Membranes Moist - Neck Exam Neck Exam: Full ROM - Respiratory Exam Respiratory Exam: Decreased Breath Sounds (R>L), Wheezes (Diffuse end expiratory ), NORMAL BREATHING PATTERN. absent: Accessory Muscle Use, Chest Wall Tenderness, Clear to Ausculation Bilateral, Prolonged Expiratory Phase, Rales, Rhonchi, Respiratory Distress, Stridor - Cardiovascular Exam Cardiovascular Exam: REGULAR RHYTHM, +S1, +S2 - GI/Abdominal Exam GI & Abdominal Exam: Soft, Normal Bowel Sounds. absent: Tenderness - Extremities Exam Extremities Exam: absent: Calf Tenderness - Neurological Exam Neurological Exam: Alert, Awake, Oriented x3 - Psychiatric Exam Psychiatric exam: Normal Affect, Normal Mood - Skin Skin Exam: Dry, Intact, Normal Color, Warm Assessment and Plan - Assessment and Plan (Free Text) Assessment: 72 year old female with a past medical history significant for HTN and asthma who presents with chronic cough for 3 months Plan: 1. Chronic Cough -Chest X-Ray showed minimal bibasilar infiltrates versus atelectasis -CT Chest to r/o pneumonia pending official radiologist interpretation -Continue IV Rocephin and Zithromax -Continue Duonebs Q6 [facility] -Blood cultures negative for 24 hours 2. Confusion -CT Head pending -Blood cultures negative for 24 hours -No complaints of this at this time GI Prophylaxis: Protonix DVT Prophylaxis: SCD's Patient seen and case discussed with attending, Dr. Figueroa. <Milly Figueroa - Last Filed: 08/14/18 08:15> Objective - Vital Signs/Intake and Output Vital Signs (last 24 hours): Temp Pulse Resp BP Pulse Ox 98.6 F 82 20 145/49 L 96 08/14/18 06:00 08/14/18 06:00 08/14/18 06:00 08/14/18 06:00 08/14/18 06:00 Intake and Output: 08/14/18 08/14/18 06:59 18:59 Intake Total 840 Balance 840 - Medications Medications: Current Medications Albuterol/Ipratropium (Duoneb 3 Mg/0.5 Mg (3 Ml) Ud) 3 ml IH [id number] [facility] Last Admin: 08/14/18 07:24 Dose: 3 ml Azithromycin (Zithromax 500mg In Ns) 500 mg in 250 mls @ 167 mls/hr IVPB DAILY [facility] PRN Reason: Protocol Last Admin: 08/13/18 11:14 Dose: 167 mls/hr Ceftriaxone Sodium (Rocephin 1 Gram Ivpb) 1 gm in 100 mls @ 100 mls/hr IVPB DAILY [facility] PRN Reason: Protocol Last Admin: 08/13/18 10:11 Dose: 100 mls/hr Pantoprazole Sodium (Protonix Ec Tab) 40 mg PO 0600 [facility] Last Admin: 08/14/18 05:32 Dose: 40 mg - Labs Labs: 08/14/18 06:30 08/13/18 06:15 PT 12.1 SECONDS (9.4-12.5) 08/12/18 12:50 INR 1.06 08/12/18 12:50 APTT 27.7 Seconds (25.1-36.5) 08/12/18 12:50 Attending/Attestation - Attestation I have personally seen and examined this patient.: Yes I have fully participated in the care of the patient.: Yes I have reviewed all pertinent clinical information, including history, physical exam and plan: Yes Notes (Text): 08/14/18 08:13 72 year old female with past medical history of hypertension and asthma who presents with chronic cough for 3 months. CXR showed minimal bibasilar infiltrates or atelectasis. Procalcitonin was negative. CT chest was done this evening; will follow. Continue with duonebs prn for mild intermittent asthma. Continue with antibiotics. Robitussin for cough. Patient denies heartburn or GERD symptoms. Patient also reported memory issues, forgetfulness earlier this week. CT head is pending. Milly Figueroa MD Hospitalist.
[2018-08-14] MEDS: Albuterol-Ipratrop 3 mg / 0.5 (3 ml) UD IH SCH ×4 (01:10→20:15)
[2018-08-14] MEDS: Pantoprazole 40 mg EC Tab PO SCH (05:32)
[2018-08-14 06:57] LABS: BASO # 0.02 K/mm3 (0.0-2.0); BASO % 0.4 % (0.0-3.0); EOS # 0.3 (0.0-0.7); EOS % 6.9 % (1.5-5.0); GRAN # 2.23 (1.4-6.5); GRAN % 49.4 % (50.0-68.0); HEMOGLOBIN 11.6 g/dL (12.0-16.0); LYMPH # 1.6 (1.2-3.4); LYMPH % 35.6 % (22.0-35.0); MEAN CELL VOLUME 87.1 fl (80.0-105.0); MEAN CORPUSCULAR HEMOGLOBIN 28.2 pg (25.0-35.0); MEAN CORPUSCULAR HGB CONC 32.3 g/dl (31.0-37.0); MEAN PLATELET VOLUME 9.2 fl (7.0-11.0); MONO # 0.4 (0.1-0.6); MONO % 7.7 % (1.0-6.0); RBC 4.12 10^6/uL (3.5-6.1); RED CELL DISTRIBUTION WIDTH 13.3 % (11.5-14.5); WHITE BLOOD COUNT 4.5 10^3/ul (4.5-11.0)
[2018-08-14] MEDS: guaiFENesin 200 mg/10 ml Syrup UD PO PRN ×3 (08:40→21:23)
[2018-08-14] MEDS: cefTRIAXone 1 gm 1 GM/100 ML BAG IVPB SCH (12:21)
--- NOTE | 2018-08-14 12:21 | CT ---
Date of service: 08/13/2018 PROCEDURE: CT HEAD WITHOUT CONTRAST. HISTORY: forgetful COMPARISON: None available. TECHNIQUE: Axial computed tomography images were obtained through the head/brain without intravenous contrast. Radiation dose: Total exam DLP = 777 mGy-cm. This CT exam was performed using one or more of the following dose reduction techniques: Automated exposure control, adjustment of the mA and/or kV according to patient size, and/or use of iterative reconstruction technique. FINDINGS: HEMORRHAGE: No intracranial hemorrhage. BRAIN: No mass effect or edema. No atrophy or chronic microvascular ischemic changes. VENTRICLES: Unremarkable. No hydrocephalus. CALVARIUM: Unremarkable. PARANASAL SINUSES: Mucosal thickening in the right maxillary sinus MASTOID AIR CELLS: Unremarkable as visualized. No inflammatory changes. OTHER FINDINGS: The report concurs with the preliminary [facility] report IMPRESSION: No acute intracranial findings
--- NOTE | 2018-08-14 12:22 | CT ---
Date of service: 08/13/2018 PROCEDURE: CT Chest without contrast HISTORY: chronic cough COMPARISON: None available. TECHNIQUE: Contiguous axial images were obtained through the chest without intravenous contrast enhancement. Sagittal and coronal reconstructions were performed. Radiation dose (DLP): 440 mGy-cm. This CT exam was performed using one or more of the following dose reduction techniques: Automated exposure control, adjustment of the mA and/or kV according to patient size, and/or use of iterative reconstruction technique. FINDINGS: LUNGS: There is an infiltrate in the right middle lobe. This may represent atelectasis. The finding was not present on the PET-CT dated 05/17/2018. There is also a minimal infiltrate in the lingular segment of the left upper lobe. Small focal areas of consolidation are seen in both costophrenic angles. . MEDIASTINUM: Unremarkable thoracic aorta. No aneurysm. Normal sized heart. Main pulmonary artery unremarkable. No vascular congestion. No lymphadenopathy. PLEURA: No pleural fluid. No pneumothorax. BONES: No fracture. No destructive lesion. UPPER ABDOMEN: Grossly unremarkable. OTHER FINDINGS: The report concurs with the preliminary [facility] report IMPRESSION: Small multi focal infiltrates suspicious for pneumonia
[2018-08-14] MEDS: Azithromycin 500MG/NS 250ml 500 MG/250 ML BAG IVPB SCH (12:59)
--- NOTE | 2018-08-14 14:05 | CP.PCM.PN ---
<Aman Pineda - Last Filed: 08/14/18 14:05> Subjective - Date & Time of Evaluation Date of Evaluation: 08/14/18 Time of Evaluation: 14:03 - Subjective Subjective: Patient seen and examined at bedside. Patient complaining of persistent cough and mild shortness of breath. Denies chest pain, nausea, vomiting, diarrhea, fever, chills. Objective - Vital Signs/Intake and Output Vital Signs (last 24 hours): Temp Pulse Resp BP Pulse Ox 98.6 F 82 20 145/49 L 96 08/14/18 06:00 08/14/18 06:00 08/14/18 06:00 08/14/18 06:00 08/14/18 06:00 Intake and Output: 08/14/18 08/14/18 06:59 18:59 Intake Total 840 Balance 840 - Medications Medications: Current Medications Albuterol/Ipratropium (Duoneb 3 Mg/0.5 Mg (3 Ml) Ud) 3 ml IH [id number] [facility] Last Admin: 08/14/18 13:24 Dose: 3 ml Guaifenesin (Robitussin) 200 mg PO Q4H PRN PRN Reason: Cough and congestion Last Admin: 08/14/18 08:40 Dose: 200 mg Azithromycin (Zithromax 500mg In Ns) 500 mg in 250 mls @ 167 mls/hr IVPB DAILY [facility] PRN Reason: Protocol Last Admin: 08/14/18 12:59 Dose: 167 mls/hr Ceftriaxone Sodium (Rocephin 1 Gram Ivpb) 1 gm in 100 mls @ 100 mls/hr IVPB DAILY [facility] PRN Reason: Protocol Last Admin: 08/14/18 12:21 Dose: 100 mls/hr Pantoprazole Sodium (Protonix Ec Tab) 40 mg PO 0600 [facility] Last Admin: 08/14/18 05:32 Dose: 40 mg - Labs Labs: 08/14/18 06:30 08/13/18 06:15 PT 12.1 SECONDS (9.4-12.5) 08/12/18 12:50 INR 1.06 08/12/18 12:50 APTT 27.7 Seconds (25.1-36.5) 08/12/18 12:50 - Constitutional Appears: Non-toxic, No Acute Distress - Head Exam Head Exam: ATRAUMATIC, NORMAL INSPECTION, NORMOCEPHALIC - Respiratory Exam Respiratory Exam: Decreased Breath Sounds, NORMAL BREATHING PATTERN. absent: Rales, Rhonchi, Wheezes - Cardiovascular Exam Cardiovascular Exam: RRR, +S1, +S2 - GI/Abdominal Exam GI & Abdominal Exam: Soft, Normal Bowel Sounds. absent: Tenderness - Extremities Exam Extremities Exam: Pedal Edema (Trace b/l) - Neurological Exam Neurological Exam: Alert, Awake, Oriented x3 - Psychiatric Exam Psychiatric exam: Normal Affect, Normal Mood - Skin Skin Exam: Intact, Normal Color, Warm Assessment and Plan - Assessment and Plan (Free Text) Plan: 72 year old female with a past medical history significant for HTN and asthma who presents with community acquired pneumonia. 1. CAP -CT chest shows small multifocal infiltrates suspicious for pneumonia -Continue IV Rocephin and Zithromax -Continue Duonebs Q6 [facility] -Blood and urine cultures negative 2. Confusion -CT Head negative for acute pathology -Oriented x3 -Blood cultures negative for 24 hours 3. DVT/GI -Protonix -SCDs Edwin, PGY-3 <Milly Figueroa - Last Filed: 08/14/18 19:07> Objective - Vital Signs/Intake and Output Vital Signs (last 24 hours): Temp Pulse Resp BP Pulse Ox 98.4 F 107 H 20 135/69 96 08/14/18 14:00 08/14/18 14:00 08/14/18 14:00 08/14/18 14:00 08/14/18 14:00 - Medications Medications: Current Medications Albuterol/Ipratropium (Duoneb 3 Mg/0.5 Mg (3 Ml) Ud) 3 ml IH [id number] [facility] Last Admin: 08/14/18 13:24 Dose: 3 ml Guaifenesin (Robitussin) 200 mg PO Q4H PRN PRN Reason: Cough and congestion Last Admin: 08/14/18 14:59 Dose: 200 mg Azithromycin (Zithromax 500mg In Ns) 500 mg in 250 mls @ 167 mls/hr IVPB DAILY [facility] PRN Reason: Protocol Last Admin: 08/14/18 12:59 Dose: 167 mls/hr Ceftriaxone Sodium (Rocephin 1 Gram Ivpb) 1 gm in 100 mls @ 100 mls/hr IVPB DAILY [facility] PRN Reason: Protocol Last Admin: 08/14/18 12:21 Dose: 100 mls/hr Pantoprazole Sodium (Protonix Ec Tab) 40 mg PO 0600 [facility] Last Admin: 08/14/18 05:32 Dose: 40 mg - Labs Labs: 08/14/18 06:30 08/13/18 06:15 PT 12.1 SECONDS (9.4-12.5) 08/12/18 12:50 INR 1.06 08/12/18 12:50 APTT 27.7 Seconds (25.1-36.5) 08/12/18 12:50 Attending/Attestation - Attestation I have personally seen and examined this patient.: Yes I have fully participated in the care of the patient.: Yes I have reviewed all pertinent clinical information, including history, physical exam and plan: Yes Notes (Text): 08/14/18 19:06 72 year old female with past medical history of hypertension and asthma who presents with chronic cough for 3 months. CXR showed minimal bibasilar infiltrates or atelectasis. Procalcitonin was negative. CT chest shows small multifocal infiltrates suspicious for pneumonia. Continue with antibiotics. Robitussin for cough. Continue with duonebs prn for mild intermittent asthma. Patient also reported memory issues, forgetfulness earlier this week. CT head was negative for acute findings. Milly Figueroa MD Hospitalist.
[2018-08-15] MEDS: Albuterol-Ipratrop 3 mg / 0.5 (3 ml) UD IH SCH ×3 (02:50→13:37)
[2018-08-15] MEDS: guaiFENesin 200 mg/10 ml Syrup UD PO PRN ×3 (05:14→13:59)
[2018-08-15] MEDS: Pantoprazole 40 mg EC Tab PO SCH (05:14)
[2018-08-15 08:04] LABS: ALB/GLOB RATIO 1.4 (1.1-1.8); ALBUMIN 3.6 g/dL (3.0-4.8); ALT/SGPT 23 U/L (7-56); AST/SGOT 27 U/L (14-36); BLOOD UREA NITROGEN 17 mg/dL (7-21); CALCIUM 8.8 mg/dL (8.4-10.5); GFR NON-AFRICAN AMERICAN > 60
[2018-08-15] MEDS: cefTRIAXone 1 gm 1 GM/100 ML BAG IVPB SCH (09:30)
[2018-08-15 15:16] VITALS: BP 150/73; PULSE 99; RESP 20; TEMP 98.4; O2SAT 94
--- NOTE | 2018-08-15 20:05 | CP.PCM.DIS ---
<Gray Pereyra - Last Filed: 08/15/18 19:55> Provider - Provider Date of Admission: 08/12/18 14:41 Attending physician: Lacey Tabares MD Primary care physician: Felix Wills MD Consults: RT Time Spent in preparation of Discharge (in minutes): 45 Diagnosis - Discharge Diagnosis (1) Cough Status: Chronic Priority: High (2) Confusion Status: Acute Priority: Medium (3) Asthma Status: Chronic Priority: Medium (4) HTN (hypertension) Status: Chronic Priority: Medium Hospital Course - Lab Results Lab Results: Micro Results 08/13/18 06:20 Urine Urine Culture - Final No Growth (<1,000 CFU/ML) Most Recent Lab Values WBC 4.5 10^3/ul (4.5-11.0) 08/14/18 06:30 RBC 4.12 10^6/uL (3.5-6.1) 08/14/18 06:30 Hgb 11.6 g/dL (12.0-16.0) L 08/14/18 06:30 Hct 35.9 % (36.0-48.0) L 08/14/18 06:30 MCV 87.1 fl (80.0-105.0) 08/14/18 06:30 MCH 28.2 pg (25.0-35.0) 08/14/18 06:30 MCHC 32.3 g/dl (31.0-37.0) 08/14/18 06:30 RDW 13.3 % (11.5-14.5) 08/14/18 06:30 Plt Count 251 10^3/uL (120.0-450.0) 08/14/18 06:30 MPV 9.2 fl (7.0-11.0) 08/14/18 06:30 Gran % 49.4 % (50.0-68.0) L 08/14/18 06:30 Lymph % (Auto) 35.6 % (22.0-35.0) H 08/14/18 06:30 [place] % (Auto) 7.7 % (1.0-6.0) H 08/14/18 06:30 Eos % (Auto) 6.9 % (1.5-5.0) H 08/14/18 06:30 Baso % (Auto) 0.4 % (0.0-3.0) 08/14/18 06:30 Gran # 2.23 (1.4-6.5) 08/14/18 06:30 Lymph # (Auto) 1.6 (1.2-3.4) 08/14/18 06:30 [place] # (Auto) 0.4 (0.1-0.6) 08/14/18 06:30 Eos # (Auto) 0.3 (0.0-0.7) 08/14/18 06:30 Baso # (Auto) 0.02 K/mm3 (0.0-2.0) 08/14/18 06:30 PT 12.1 SECONDS (9.4-12.5) 08/12/18 12:50 INR 1.06 08/12/18 12:50 APTT 27.7 Seconds (25.1-36.5) 08/12/18 12:50 pO2 42 mm/Hg (30-55) 08/12/18 12:50 VBG pH 7.34 (7.32-7.43) 08/12/18 12:50 VBG pCO2 49.0 (40-60) 08/12/18 12:50 VBG HCO3 26.4 mmol/l (21-28) 08/12/18 12:50 VBG Total CO2 27.9 mmol.L (22-28) 08/12/18 12:50 VBG O2 Sat (Calc) 79.3 % (40-65) H 08/12/18 12:50 VBG Base Excess 0.0 mmol/L (0.0-2.0) 08/12/18 12:50 VBG Potassium 4.7 mmol/L (3.6-5.2) 08/12/18 12:50 Sodium 138.0 mmol/L (132-148) 08/12/18 12:50 Chloride 106.0 mmol/L (98-107) 08/12/18 12:50 Glucose 111 mg/dl (65-105) H 08/12/18 12:50 Lactate 1.2 mmol/L (0.7-2.1) 08/12/18 12:50 FiO2 21.0 % 08/12/18 12:50 Sodium 141 mmol/L (132-148) 08/15/18 07:00 Potassium 4.7 mmol/L (3.6-5.0) 08/15/18 07:00 Chloride 109 mmol/L (98-107) H 08/15/18 07:00 Carbon Dioxide 24 mmol/L (21-33) 08/15/18 07:00 Anion Gap 12 (10-20) 08/15/18 07:00 BUN 17 mg/dL (7-21) 08/15/18 07:00 Creatinine 0.7 mg/dl (0.7-1.2) 08/15/18 07:00 Est GFR ( Amer) > 60 08/15/18 07:00 Est GFR (Non-Af Amer) > 60 08/15/18 07:00 Random Glucose 98 mg/dL (70-110) 08/15/18 07:00 Calcium 8.8 mg/dL (8.4-10.5) 08/15/18 07:00 Total Bilirubin 0.4 mg/dL (0.2-1.3) 08/15/18 07:00 AST 27 U/L (14-36) 08/15/18 07:00 ALT 23 U/L (7-56) 08/15/18 07:00 Alkaline Phosphatase 57 U/L (38-126) 08/15/18 07:00 Lactate Dehydrogenase 600 U/L (333-699) 08/12/18 12:50 Total Creatine Kinase 36 U/L (35-230) 08/12/18 12:50 Troponin I < 0.01 ng/mL D 08/12/18 12:50 NT-Pro-B Natriuret Pep 1340 pg/mL (0-450) H 08/12/18 19:55 Total Protein 6.3 g/dL (5.8-8.3) 08/15/18 07:00 Albumin 3.6 g/dL (3.0-4.8) 08/15/18 07:00 Globulin 2.7 gm/dL 08/15/18 07:00 Albumin/Globulin Ratio 1.4 (1.1-1.8) 08/15/18 07:00 Procalcitonin < 0.05 NG/ML (0.19-0.49) L 08/12/18 19:55 Venous Blood Potassium 4.7 mmol/L (3.6-5.2) 08/12/18 12:50 Urine Color Yellow (YELLOW) 08/13/18 06:20 Urine Appearance Sl cloudy (CLEAR) 08/13/18 06:20 Urine pH 6.0 (4.7-8.0) 08/13/18 06:20 Ur Specific [place] 1.020 (1.005-1.035) 08/13/18 06:20 Urine Protein Negative mg/dL (<30 mg/dL) 08/13/18 06:20 Urine Glucose (UA) Negative mg/dL (NEGATIVE) 08/13/18 06:20 Urine Ketones Negative mg/dL (NEGATIVE) 08/13/18 06:20 Urine Blood Negative (NEGATIVE) 08/13/18 06:20 Urine Nitrate Negative (NEGATIVE) 08/13/18 06:20 Urine Bilirubin Negative (NEGATIVE) 08/13/18 06:20 Urine Urobilinogen 0.2 E.U./dL (<1 E.U./dL) 08/13/18 06:20 Ur Leukocyte Esterase Trace Lisa/uL (NEGATIVE) H 08/13/18 06:20 Urine RBC Negative /hpf (0-2) 08/13/18 06:20 Urine WBC 2 - 5 /hpf (0-6) 08/13/18 06:20 Ur Epithelial Cells 0 - 2 /hpf (0-5) 08/13/18 06:20 Influenza Typ A,B (EIA) Negative for flu a/b (NEGATIVE) 08/12/18 12:50 - Hospital Course Hospital Course: Johnny is a 72 yo female with a PMH of HTN, HLD, asthma, C. diff, and diverticulitis who presented to the ED complaining of cough. She reported having the cough for the past 3 months. The cough was productive with sputum and associated gum pain. She reported pain with coughing which was making it difficult to sleep. She also reported being forgetful over the past few days. She also stated that she had been experiencing some urinary symptoms. Pt was given rocephin and zithromax while in the hospital. Blood cultures were negative. A head CT was performed, which ruled out acute pathology. Pt was advised to follow up with Dr Wills, her primary care doctor within 3-5 days of her discharge. 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 Pt was advised to continue prednisone for 4 more days as well as azithromycin. - Date & Time of H&P Date of H&P: 08/15/18 Time of H&P: 06:00 Discharge Exam - Head Exam Head Exam: ATRAUMATIC, NORMAL INSPECTION, NORMOCEPHALIC - Respiratory Exam Respiratory Exam: Wheezes, NORMAL BREATHING PATTERN, UNREMARKABLE. absent: Accessory Muscle Use - Cardiovascular Exam Cardiovascular Exam: REGULAR RHYTHM, RRR, +S1, +S2 - GI/Abdominal Exam GI & Abdominal Exam: Normal Bowel Sounds, Unremarkable - Extremities Exam Extremities exam: full ROM, pedal pulses present - Neurological Exam Neurological exam: Alert, Oriented x3 - Psychiatric Exam Psychiatric exam: Normal Affect, Normal Mood - Skin Skin Exam: Dry, Normal Color, Warm Discharge Plan - Discharge Medications Prescriptions: Azithromycin [Zithromax] 250 mg PO DAILY #4 tab guaiFENesin [Robitussin] 200 mg PO Q4H PRN #1 udc PRN Reason: Cough And Congestion Pantoprazole [Protonix EC Tab] 40 mg PO 0600 #14 ect predniSONE [predniSONE Tab] 40 mg PO DAILY #4 tab - Follow Up Plan Condition: STABLE Disposition: HOME/ ROUTINE Instructions: Cough in Adults, Flu, Adult (DC), Pneumonia, Adult (DC), Why Vaccines Are Important for Everyone, Flu Vaccine Additional Instructions: 1.Please follow up with your PMD Dr. Wills within 3-5 days 2.You will be provided with the CT chest and Chest x-ray films from the radiology department. Please pick them up and provide your recreation therapy aide Dr. Dykes with the readings 3.Please continue prednisone for 4 more days as well as your antibiotic azithromycin 4.If symptoms return or worsen please go to your nearest emergency department Referrals: Felix Wills MD [Primary Care Provider] - <Lacey Tabares - Last Filed: 08/17/18 17:17> Provider - Provider Date of Admission: 08/12/18 14:41 Attending physician: Lacey Tabares MD Primary care physician: Felix Wills MD Hospital Course - Lab Results Lab Results: Micro Results 08/13/18 06:20 Urine Urine Culture - Final No Growth (<1,000 CFU/ML) Most Recent Lab Values WBC 4.5 10^3/ul (4.5-11.0) 08/14/18 06:30 RBC 4.12 10^6/uL (3.5-6.1) 08/14/18 06:30 Hgb 11.6 g/dL (12.0-16.0) L 08/14/18 06:30 Hct 35.9 % (36.0-48.0) L 08/14/18 06:30 MCV 87.1 fl (80.0-105.0) 08/14/18 06:30 MCH 28.2 pg (25.0-35.0) 08/14/18 06:30 MCHC 32.3 g/dl (31.0-37.0) 08/14/18 06:30 RDW 13.3 % (11.5-14.5) 08/14/18 06:30 Plt Count 251 10^3/uL (120.0-450.0) 08/14/18 06:30 MPV 9.2 fl (7.0-11.0) 08/14/18 06:30 Gran % 49.4 % (50.0-68.0) L 08/14/18 06:30 Lymph % (Auto) 35.6 % (22.0-35.0) H 08/14/18 06:30 [place] % (Auto) 7.7 % (1.0-6.0) H 08/14/18 06:30 Eos % (Auto) 6.9 % (1.5-5.0) H 08/14/18 06:30 Baso % (Auto) 0.4 % (0.0-3.0) 08/14/18 06:30 Gran # 2.23 (1.4-6.5) 08/14/18 06:30 Lymph # (Auto) 1.6 (1.2-3.4) 08/14/18 06:30 [place] # (Auto) 0.4 (0.1-0.6) 08/14/18 06:30 Eos # (Auto) 0.3 (0.0-0.7) 08/14/18 06:30 Baso # (Auto) 0.02 K/mm3 (0.0-2.0) 08/14/18 06:30 PT 12.1 SECONDS (9.4-12.5) 08/12/18 12:50 INR 1.06 08/12/18 12:50 APTT 27.7 Seconds (25.1-36.5) 08/12/18 12:50 pO2 42 mm/Hg (30-55) 08/12/18 12:50 VBG pH 7.34 (7.32-7.43) 08/12/18 12:50 VBG pCO2 49.0 (40-60) 08/12/18 12:50 VBG HCO3 26.4 mmol/l (21-28) 08/12/18 12:50 VBG Total CO2 27.9 mmol.L (22-28) 08/12/18 12:50 VBG O2 Sat (Calc) 79.3 % (40-65) H 08/12/18 12:50 VBG Base Excess 0.0 mmol/L (0.0-2.0) 08/12/18 12:50 VBG Potassium 4.7 mmol/L (3.6-5.2) 08/12/18 12:50 Sodium 138.0 mmol/L (132-148) 08/12/18 12:50 Chloride 106.0 mmol/L (98-107) 08/12/18 12:50 Glucose 111 mg/dl (65-105) H 08/12/18 12:50 Lactate 1.2 mmol/L (0.7-2.1) 08/12/18 12:50 FiO2 21.0 % 08/12/18 12:50 Sodium 141 mmol/L (132-148) 08/15/18 07:00 Potassium 4.7 mmol/L (3.6-5.0) 08/15/18 07:00 Chloride 109 mmol/L (98-107) H 08/15/18 07:00 Carbon Dioxide 24 mmol/L (21-33) 08/15/18 07:00 Anion Gap 12 (10-20) 08/15/18 07:00 BUN 17 mg/dL (7-21) 08/15/18 07:00 Creatinine 0.7 mg/dl (0.7-1.2) 08/15/18 07:00 Est GFR ( Amer) > 60 08/15/18 07:00 Est GFR (Non-Af Amer) > 60 08/15/18 07:00 Random Glucose 98 mg/dL (70-110) 08/15/18 07:00 Calcium 8.8 mg/dL (8.4-10.5) 08/15/18 07:00 Total Bilirubin 0.4 mg/dL (0.2-1.3) 08/15/18 07:00 AST 27 U/L (14-36) 08/15/18 07:00 ALT 23 U/L (7-56) 08/15/18 07:00 Alkaline Phosphatase 57 U/L (38-126) 08/15/18 07:00 Lactate Dehydrogenase 600 U/L (333-699) 08/12/18 12:50 Total Creatine Kinase 36 U/L (35-230) 08/12/18 12:50 Troponin I < 0.01 ng/mL D 08/12/18 12:50 NT-Pro-B Natriuret Pep 1340 pg/mL (0-450) H 08/12/18 19:55 Total Protein 6.3 g/dL (5.8-8.3) 08/15/18 07:00 Albumin 3.6 g/dL (3.0-4.8) 08/15/18 07:00 Globulin 2.7 gm/dL 08/15/18 07:00 Albumin/Globulin Ratio 1.4 (1.1-1.8) 08/15/18 07:00 Procalcitonin < 0.05 NG/ML (0.19-0.49) L 08/12/18 19:55 Venous Blood Potassium 4.7 mmol/L (3.6-5.2) 08/12/18 12:50 Urine Color Yellow (YELLOW) 08/13/18 06:20 Urine Appearance Sl cloudy (CLEAR) 08/13/18 06:20 Urine pH 6.0 (4.7-8.0) 08/13/18 06:20 Ur Specific [place] 1.020 (1.005-1.035) 08/13/18 06:20 Urine Protein Negative mg/dL (<30 mg/dL) 08/13/18 06:20 Urine Glucose (UA) Negative mg/dL (NEGATIVE) 08/13/18 06:20 Urine Ketones Negative mg/dL (NEGATIVE) 08/13/18 06:20 Urine Blood Negative (NEGATIVE) 08/13/18 06:20 Urine Nitrate Negative (NEGATIVE) 08/13/18 06:20 Urine Bilirubin Negative (NEGATIVE) 08/13/18 06:20 Urine Urobilinogen 0.2 E.U./dL (<1 E.U./dL) 08/13/18 06:20 Ur Leukocyte Esterase Trace Lisa/uL (NEGATIVE) H 08/13/18 06:20 Urine RBC Negative /hpf (0-2) 08/13/18 06:20 Urine WBC 2 - 5 /hpf (0-6) 08/13/18 06:20 Ur Epithelial Cells 0 - 2 /hpf (0-5) 08/13/18 06:20 Influenza Typ A,B (EIA) Negative for flu a/b (NEGATIVE) 08/12/18 12:50 Attending/Attestation - Attestation I have personally seen and examined this patient.: Yes I have fully participated in the care of the patient.: Yes I have reviewed all pertinent clinical information, including history, physical exam and plan: Yes Notes (Text): 08/17/18 17:14 Medical record note made by the resident after discussion with my direction and input after the patient was personally seen and examined by me. I have reviewed the chart and agree that the record accurately reflects by personal performance of the history, physical exam, data review, and medical decision-making, in the course for the patient. I have also personally directed the plan of care. 72 year old female with past medical history of hypertension and asthma who presents with chronic cough for 3 months.CXR showed minimal bibasilar infiltrates or atelectasis. Procalcitonin was negative. CT chest shows small multifocal infiltrates suspicious for pneumonia.Patient also reported memory issues, forgetfulness earlier this week. CT head was negative for acute findings. Patient was treated with antibiotics.Cough is improving.She will be started on oral Prednisone and anti tussive. She is on room air and is ambulatory. She will be discharged home and will follow up with his Sales Apprentice and PCP Management plan was discussed in detail with patient. Education was provided.
--- NOTE | 2018-08-17 19:13 | PQF ---
PROVIDER RESPONSE TEXT: Provider was unable to determine a response for this query. REVIEWER QUERY TEXT: Clarification of Clinical Diagnostic Findings Please clarify documentation or clinical relevance for the clinical / diagnostic findings or whether those are insignificant or unable to be further specified. The patient's Clinical Indicators include: "Suspicious for pneumonia" and possible pneumonia are documented on notes but not on discharge summar y. Was pneumonia ruled in, ruled out, undetermined? If pneumonia was ruled out, please specify princi pal diagnosis. Thank you. Query created by: Emmy Rizvi on 08/16/2018 1:42 PM Electronically signed by: Milly Figueroa MD 08/17/2018 7:10 PM
== END 2018-08-15 16:24 | disposition home or self-care (01) | DRG 204 ==
LOC: ED 11:50 → ERH 14:41 → 5RNO 18:06
PROVIDERS: ADMIT Internal Medicine; ATTEND Internal Medicine
DX: R05 Cough (principal); J45.20 Mild intermittent asthma, uncomplicated; I12.9 Hypertensive chronic kidney disease with stage 1 through stage 4 chronic kidney disease, or unspecified chronic kidney disease; N18.9 Chronic kidney disease, unspecified; R41.0 Disorientation, unspecified; Z87.442 Personal history of urinary calculi; E78.5 Hyperlipidemia, unspecified; Z85.72 Personal history of non-Hodgkin lymphomas; Z90.710 Acquired absence of both cervix and uterus; Z88.1 Allergy status to other antibiotic agents; Z88.5 Allergy status to narcotic agent; Z88.8 Allergy status to other drugs, medicaments and biological substances

== ENCOUNTER 2019-03-28 20:21 | Outpatient (CLI) | payer MEDICARE, MEDICAID | END 2019-03-28 20:22 | disposition home or self-care (01) | LOC: PET-BROA 20:21 | DX: D51.9 Vitamin B12 deficiency anemia, unspecified (principal) ==